=== PATIENT | female | born 1965 | race Caucasian/White ===

== ENCOUNTER → 2017-04-17 14:08 | Outpatient (REF) | payer BC, SELFPAY ==
[2017-04-17 16:59] LABS: Amphetamine/Metha Screen,Urine Negative ng/mL (<1000); Barbiturates Screen,Urine Positive ng/mL (<200); Benzodiazepines Screen,Urine Negative ng/mL (200); Cannabinoid Screen,Urine Negative ng/mL (<50); Cocaine Screen,Urine Negative ng/g (<300); Methadone Screen,Urine Negative ng/mL (<300); Opiate Screen,Urine Positive ng/mL (<300); Phencyclidine Screen,Urine Negative ng/mL (<25)
== END ==
LOC: LAB 14:08
PROVIDERS: Visit Provider Emergency Medicine
DX: Z79.899 Other long term (current) drug therapy (principal)
CPT/HCPCS: 80305

== ENCOUNTER → 2017-05-17 09:31 | Outpatient (REF) | payer BC, SELFPAY ==
[2017-05-17 14:28] LABS: Amphetamine/Metha Screen,Urine Negative ng/mL (<1000); Barbiturates Screen,Urine Negative ng/mL (<200); Benzodiazepines Screen,Urine Positive ng/mL (200); Cannabinoid Screen,Urine Negative ng/mL (<50); Cocaine Screen,Urine Negative ng/g (<300); Methadone Screen,Urine Negative ng/mL (<300); Opiate Screen,Urine Positive ng/mL (<300); Phencyclidine Screen,Urine Negative ng/mL (<25)
== END ==
LOC: LAB 09:31
PROVIDERS: Visit Provider Emergency Medicine
DX: Z79.899 Other long term (current) drug therapy (principal)
CPT/HCPCS: 80305

== ENCOUNTER → 2017-06-14 09:18 | Outpatient (CLI) | payer BC, SELFPAY ==
[2017-06-14 14:35] LABS: Amphetamine/Metha Screen,Urine Negative ng/mL (<1000); Barbiturates Screen,Urine Negative ng/mL (<200); Benzodiazepines Screen,Urine Positive ng/mL (200); Cannabinoid Screen,Urine Negative ng/mL (<50); Cocaine Screen,Urine Negative ng/g (<300); Methadone Screen,Urine Negative ng/mL (<300); Opiate Screen,Urine Positive ng/mL (<300); Phencyclidine Screen,Urine Negative ng/mL (<25)
== END ==
PROVIDERS: Visit Provider Emergency Medicine
DX: Z79.899 Other long term (current) drug therapy (principal)
CPT/HCPCS: 80305

== ENCOUNTER → 2017-07-12 08:57 | Outpatient (CLI) | payer BC, SELFPAY ==
[2017-07-12 18:24] LABS: Amphetamine/Metha Screen,Urine Negative ng/mL (<1000); Barbiturates Screen,Urine Negative ng/mL (<200); Benzodiazepines Screen,Urine Negative ng/mL (200); Cannabinoid Screen,Urine Negative ng/mL (<50); Cocaine Screen,Urine Negative ng/g (<300); Methadone Screen,Urine Negative ng/mL (<300); Opiate Screen,Urine Positive ng/mL (<300); Phencyclidine Screen,Urine Negative ng/mL (<25)
== END ==
PROVIDERS: Visit Provider Emergency Medicine
DX: Z79.899 Other long term (current) drug therapy (principal)
CPT/HCPCS: 80305

== ENCOUNTER → 2017-08-09 09:07 | Outpatient (CLI) | payer BC, SELFPAY ==
[2017-08-09 13:58] LABS: Amphetamine/Metha Screen,Urine Negative ng/mL (<1000); Barbiturates Screen,Urine Negative ng/mL (<200); Benzodiazepines Screen,Urine Positive ng/mL (200); Cannabinoid Screen,Urine Negative ng/mL (<50); Cocaine Screen,Urine Negative ng/g (<300); Methadone Screen,Urine Negative ng/mL (<300); Opiate Screen,Urine Positive ng/mL (<300); Phencyclidine Screen,Urine Negative ng/mL (<25)
== END ==
PROVIDERS: Visit Provider Emergency Medicine
DX: Z79.899 Other long term (current) drug therapy (principal)
CPT/HCPCS: 80305

== ENCOUNTER → 2017-09-06 08:57 | Outpatient (CLI) | payer BC, SELFPAY ==
[2017-09-06 13:12] LABS: Adenovirus F 40/41, stool Not Detected (NotDetected); Astrovirus Not Detected (NotDetected); Campylobacter Not Detected (NotDetected); Cryptosporidium Not Detected (NotDetected); Cyclospora Cayetanesis Not Detected (NotDetected); Entamoeba histolytica Not Detected (NotDetected); Enteroaggregative E coli Not Detected (NotDetected); Enteropathogenic E coli Not Detected (NotDetected); Enterotoxigenic E coli Not Detected (NotDetected); Giardia lamblia Not Detected (NotDetected); Norovirus Not Detected (NotDetected); Plesimonas Shigalloides, PCR Not Detected (NotDetected); Rotavirus A Not Detected (NotDetected); Salmonella, PCR Not Detected (NotDetected); Sapovirus Not Detected (NotDetected); Shiga-like toxin E coli Not Detected (NotDetected); Shigella Enterovasive E coli Not Detected (NotDetected); Vibrio Cholerae Not Detected (NotDetected); Vibrio, PCR Not Detected (NotDetected); Yersinia Entercolitica, PCR Not Detected (NotDetected)
[2017-09-06 13:50] LABS: Chol/HDL Ratio 4.5 (1-3.5); Cholesterol 197 mg/dL (140-200); HDL Cholesterol 44 mg/dL (29-89); LDL Cholesterol 126 mg/dL (0-130); Triglycerides 134 mg/dL (30-200); VLDL Cholesterol 27 mg/dL (0-40)
[2017-09-06 13:59] LABS: Alanine Aminotransferase 34 U/L (12-78); Albumin Level 4.1 gm/dL (3.4-5.0); Albumin/Globulin Ratio 1.4 (1.1-1.8); Alkaline Phosphatase 102 U/L (46-116); Anion Gap 12.8 mEq/L (5-15); Aspartate Amino Transferase 25 U/L (15-37); Bilirubin,Total 0.4 mg/dL (0.2-1.0); Blood Urea Nitrogen 13 mg/dL (7-18); C-Reactive Protein 0.8 mg/L (0.0-0.9); Calcium 9.2 mg/dL (8.5-10.1); Carbon Dioxide 29 mmol/L (21.0-32.0); Chloride 103 mmol/L (98-107); Creatinine,Serum 0.92 mg/dL (0.55-1.02); Estimated Glomerular Filt Rate 64 ml/min (>60); GFR (African American) 77 ML/MIN (>60); Globulin 2.9 gm/dl (1.3-3.2); Glucose 109 mg/dL (74-106); Potassium 3.8 mmoL/L (3.5-5.1); Sodium 141 mmol/L (136-145); Thyroid Stimulating Hormone 2.74 uIU/ml (0.358-3.740)
[2017-09-06 14:18] LABS: Basophils # 0.1 K/mm3 (0-0.2); Basophils % 1.3 % (0.1-2.0); Eosinophils # 0.4 K/mm3 (0.0-0.4); Eosinophils % 7.2 % (0.1-12.0); Hematocrit 49.4 % (37.0-47.0); Hemoglobin 15.3 g/dL (12.2-16.2); Lymphocytes # 1.8 K/mm3 (0.7-4.5); Lymphocytes % 31.4 K/mm3 (10-50); Mean Corpuscular Hemoglobin 30.4 pg (27.0-31.2); Mean Corpuscular Volume 98.1 fl (81-99); Mean Platelet Volume 9.7 fl (7.4-10.4); Monocytes # 0.5 K/mm3 (0.1-1.0); Monocytes % 8.6 % (1.7-9.3); Neutrophils # 2.9 K/mm3 (1.8-7.8); Neutrophils % 51.6 % (37.0-80.0); Platelet Count 172 K/mm3 (142-424); Red Blood Count 5.03 M/mm3 (4.20-5.40); Red Cell Distribution Width 12.8 % (11.5-17.5); White Blood Count 5.7 K/mm3 (4.8-10.8)
[2017-09-06 15:32] LABS: Erythrocyte Sedimentation Rate 12 mm/hr (0-30)
[2017-09-06 19:44] LABS: Amphetamine/Metha Screen,Urine Negative ng/mL (<1000); Barbiturates Screen,Urine Negative ng/mL (<200); Benzodiazepines Screen,Urine Negative ng/mL (200); Cannabinoid Screen,Urine Negative ng/mL (<50); Cocaine Screen,Urine Negative ng/g (<300); Methadone Screen,Urine Negative ng/mL (<300); Opiate Screen,Urine Positive ng/mL (<300); Phencyclidine Screen,Urine Negative ng/mL (<25)
[2017-09-06 20:22] LABS: Clostridium Difficile A/B, PCR Detected (NotDetected)
== END ==
PROVIDERS: Visit Provider Emergency Medicine
DX: R19.7 Diarrhea, unspecified (principal); Z79.899 Other long term (current) drug therapy
CPT/HCPCS: 80053; 80061; 80305; 84439; 84443; 85025; 85651; 86140; 87507

== ENCOUNTER → 2017-10-07 09:07 | Outpatient (REF) | payer BC, SELFPAY ==
[2017-10-07 14:24] LABS: Amphetamine/Metha Screen,Urine Positive ng/mL (<1000); Barbiturates Screen,Urine Negative ng/mL (<200); Benzodiazepines Screen,Urine Negative ng/mL (200); Cannabinoid Screen,Urine Negative ng/mL (<50); Cocaine Screen,Urine Negative ng/g (<300); Methadone Screen,Urine Negative ng/mL (<300); Opiate Screen,Urine Positive ng/mL (<300); Phencyclidine Screen,Urine Negative ng/mL (<25)
== END ==
LOC: LAB 09:07
PROVIDERS: Visit Provider Emergency Medicine
DX: Z79.899 Other long term (current) drug therapy (principal)
CPT/HCPCS: 80305

== ENCOUNTER → 2017-11-05 09:35 | Outpatient (REF) | payer BC, SELFPAY ==
[2017-11-05 15:44] LABS: Amphetamine/Metha Screen,Urine Negative ng/mL (<1000); Barbiturates Screen,Urine Negative ng/mL (<200); Benzodiazepines Screen,Urine Negative ng/mL (<200); Cannabinoid Screen,Urine Negative ng/mL (<50); Cocaine Screen,Urine Negative ng/mL (<300); Methadone Screen,Urine Negative ng/mL (<300); Opiate Screen,Urine Positive ng/mL (<300); Phencyclidine Screen,Urine Negative ng/mL (<25)
== END ==
LOC: LAB 09:35
PROVIDERS: Visit Provider Emergency Medicine
DX: Z79.899 Other long term (current) drug therapy (principal)
CPT/HCPCS: 80305

== ENCOUNTER → 2017-12-04 09:03 | Outpatient (REF) | payer BC, SELFPAY ==
[2017-12-04 14:02] LABS: Amphetamine/Metha Screen,Urine Negative ng/mL (<1000); Barbiturates Screen,Urine Negative ng/mL (<200); Benzodiazepines Screen,Urine Negative ng/mL (<200); Cannabinoid Screen,Urine Negative ng/mL (<50); Cocaine Screen,Urine Negative ng/mL (<300); Methadone Screen,Urine Negative ng/mL (<300); Opiate Screen,Urine Positive ng/mL (<300); Phencyclidine Screen,Urine Negative ng/mL (<25)
== END ==
LOC: LAB 09:03
PROVIDERS: Visit Provider Emergency Medicine
DX: Z79.899 Other long term (current) drug therapy (principal)
CPT/HCPCS: 80305

== ENCOUNTER → 2018-01-29 08:54 | Outpatient (REF) | payer BC, SELFPAY ==
[2018-01-29 15:26] LABS: Amphetamine/Metha Screen,Urine Negative ng/mL (<1000); Barbiturates Screen,Urine Negative ng/mL (<200); Benzodiazepines Screen,Urine Positive ng/mL (<200); Cannabinoid Screen,Urine Negative ng/mL (<50); Cocaine Screen,Urine Negative ng/mL (<300); Methadone Screen,Urine Negative ng/mL (<300); Opiate Screen,Urine Positive ng/mL (<300); Phencyclidine Screen,Urine Negative ng/mL (<25)
== END ==
LOC: LAB 08:54
PROVIDERS: PCP Emergency Medicine; Visit Provider Emergency Medicine
DX: Z79.899 Other long term (current) drug therapy (principal)
CPT/HCPCS: 80305

== ENCOUNTER → 2018-02-28 14:08 | Outpatient (CLI) | payer BC, SELFPAY ==
[2018-02-28 14:43] LABS: Amphetamine/Metha Screen,Urine Negative ng/mL (<1000); Barbiturates Screen,Urine Negative ng/mL (<200); Benzodiazepines Screen,Urine Positive ng/mL (<200); Cannabinoid Screen,Urine Negative ng/mL (<50); Cocaine Screen,Urine Negative ng/mL (<300); Methadone Screen,Urine Negative ng/mL (<300); Opiate Screen,Urine Positive ng/mL (<300); Phencyclidine Screen,Urine Negative ng/mL (<25)
== END ==
PROVIDERS: Visit Provider Emergency Medicine
DX: Z79.891 Long term (current) use of opiate analgesic (principal)
CPT/HCPCS: 80305

== ENCOUNTER → 2018-03-28 14:28 | Outpatient (CLI) | payer BC, SELFPAY ==
[2018-03-28 16:43] LABS: Amphetamine/Metha Screen,Urine Negative ng/mL (<1000); Barbiturates Screen,Urine Negative ng/mL (<200); Benzodiazepines Screen,Urine Negative ng/mL (<200); Cannabinoid Screen,Urine Negative ng/mL (<50); Cocaine Screen,Urine Negative ng/mL (<300); Methadone Screen,Urine Negative ng/mL (<300); Opiate Screen,Urine Positive ng/mL (<300); Phencyclidine Screen,Urine Negative ng/mL (<25)
== END ==
PROVIDERS: Visit Provider Emergency Medicine
DX: Z79.891 Long term (current) use of opiate analgesic (principal)
CPT/HCPCS: 80305

== ENCOUNTER → 2018-04-22 14:06 | Outpatient (CLI) | payer BC, SELFPAY ==
[2018-04-22 14:40] LABS: Amphetamine/Metha Screen,Urine Negative ng/mL (<1000); Barbiturates Screen,Urine Negative ng/mL (<200); Benzodiazepines Screen,Urine Negative ng/mL (<200); Cannabinoid Screen,Urine Negative ng/mL (<50); Cocaine Screen,Urine Negative ng/mL (<300); Methadone Screen,Urine Negative ng/mL (<300); Opiate Screen,Urine Positive ng/mL (<300); Phencyclidine Screen,Urine Negative ng/mL (<25)
[2018-04-28 10:09] LABS: Alprazolam Negative (Cutoff=100); Benzodiazepines Negative ng/mL (Cutoff=100); Clonazepam Negative (Cutoff=100); Flurazepam Negative (Cutoff=100); Lorazepam Negative (Cutoff=100); Midazolam Negative (Cutoff=100); Temazepam Negative (Cutoff=100); Triazolam Negative (Cutoff=100)
== END ==
PROVIDERS: Visit Provider Emergency Medicine
DX: Z79.891 Long term (current) use of opiate analgesic (principal)
CPT/HCPCS: 80305; 80346

== ENCOUNTER → 2018-06-18 13:52 | Outpatient (CLI) | payer BC, SELFPAY ==
[2018-06-18 15:02] LABS: Amphetamine/Metha Screen,Urine Negative ng/mL (<1000); Barbiturates Screen,Urine Positive ng/mL (<200); Benzodiazepines Screen,Urine Positive ng/mL (<200); Cannabinoid Screen,Urine Positive ng/mL (<50); Cocaine Screen,Urine Negative ng/mL (<300); Methadone Screen,Urine Negative ng/mL (<300); Opiate Screen,Urine Positive ng/mL (<300); Phencyclidine Screen,Urine Negative ng/mL (<25)
== END ==
PROVIDERS: Visit Provider Emergency Medicine
DX: Z79.899 Other long term (current) drug therapy (principal)
CPT/HCPCS: 80305

== ENCOUNTER → 2018-07-08 14:15 | Outpatient (CLI) | payer BC, SELFPAY ==
[2018-07-08 15:16] LABS: Amphetamine/Metha Screen,Urine Negative ng/mL (<1000); Barbiturates Screen,Urine Positive ng/mL (<200); Benzodiazepines Screen,Urine Positive ng/mL (<200); Cannabinoid Screen,Urine Negative ng/mL (<50); Cocaine Screen,Urine Negative ng/mL (<300); Methadone Screen,Urine Negative ng/mL (<300); Opiate Screen,Urine Positive ng/mL (<300); Phencyclidine Screen,Urine Negative ng/mL (<25)
[2018-07-15 06:59] LABS: Barbiturates Positive (.)
== END ==
LOC: LAB 14:15 → LAB.DROPOF 14:18
PROVIDERS: Visit Provider Emergency Medicine
DX: Z79.899 Other long term (current) drug therapy (principal); G89.29 Other chronic pain
CPT/HCPCS: 80305; 80345

== ENCOUNTER → 2018-08-15 09:33 | Outpatient (CLI) | payer BC, SELFPAY ==
--- NOTE | 2018-08-15 09:34 | FL_ITS ---
FL upper GI w air HISTORY: Probable swallowing, heartburn is ITS.REASON: dysphagia ORDERING PHYSICIAN: Jostin Landeros MD PATIENT AGE: 53 years Comparison: None FINDINGS: There are some mild tertiary contractions of the distal esophagus. There is a small sliding hiatal hernia. The esophagus at the GE junction never fully distended no annular constricting lesion is evident. No mucosal abnormalities.. The stomach and duodenum have an unremarkable appearance. There is no evidence of hiatal hernia. No ulcer or mass evident. No mucosal abnormalities apparent. There is normal peristalsis. The duodenal C-is nondisplaced. FLUOROSCOPY TIME : 1 minute and 54 seconds. IMPRESSION: 1. Small sliding hiatal hernia. There is incomplete distention of the distal esophagus. Consider upper endoscopy for further evaluation. 2. Otherwise negative upper GI
== END ==
PROVIDERS: PCP Emergency Medicine; Visit Provider Surgery
DX: R13.10 Dysphagia, unspecified (principal)
CPT/HCPCS: 74247

== ENCOUNTER → 2018-08-16 11:23 | Outpatient (CLI) | payer BC, SELFPAY ==
[2018-08-16 14:52] LABS: Amphetamine/Metha Screen,Urine Negative ng/mL (<1000); Barbiturates Screen,Urine Negative ng/mL (<200); Benzodiazepines Screen,Urine Negative ng/mL (<200); Cannabinoid Screen,Urine Negative ng/mL (<50); Cocaine Screen,Urine Negative ng/mL (<300); Methadone Screen,Urine Negative ng/mL (<300); Opiate Screen,Urine Positive ng/mL (<300); Phencyclidine Screen,Urine Negative ng/mL (<25)
[2018-08-23 02:13] LABS: Alprazolam Negative (Cutoff=100); Benzodiazepines Negative ng/mL (Cutoff=100); Clonazepam Negative (Cutoff=100); Flurazepam Negative (Cutoff=100); Lorazepam Negative (Cutoff=100); Midazolam Negative (Cutoff=100); Temazepam Negative (Cutoff=100); Triazolam Negative (Cutoff=100)
== END ==
PROVIDERS: Visit Provider Emergency Medicine
DX: Z79.899 Other long term (current) drug therapy (principal); M54.5 Low back pain
CPT/HCPCS: 80305; 80346

== ENCOUNTER → 2018-09-11 14:43 | Outpatient (CLI) | payer BC, SELFPAY ==
--- NOTE | 2018-09-11 14:45 | MR_ITS ---
MR lumbar spine wo con, MR 3-d myelogram/MRCP HISTORY: Low back pain X years. ITS.REASON: back pain ORDERING PHYSICIAN: Cristian Olvera MD PATIENT AGE: 53 years Comparison: CT 07/08/18. MRI 05/30/16 TECHNIQUE: Standard multiplanar multiecho sequences are performed without contrast. 3-D MIP and myelographic images are also rendered and reviewed FINDINGS: There is normal alignment. The spinal cord ends at the L1 level. L1-L2, L2-L3, and L3-L4 have an unremarkable appearance. There is mild facet and ligamentum flavum hypertrophy at L4-L5 with mild left-sided foraminal narrowing. L5-S1 shows degenerative disc disease with type II endplate changes and minimal bulging disc with facet and ligamentum flavum hypertrophy. There is a small broad-based right foraminal disc protrusion with moderate right foraminal narrowing. There is a small broad-based left lateral disc protrusion also at this level along with facet hypertrophic change resulting in moderate to severe left-sided foraminal narrowing. These findings are overall not significant changed. No extruded herniated disc or canal stenosis. IMPRESSION: 1. L5-S1 shows degenerative disc disease with type II endplate changes and minimal bulging disc with facet and ligamentum flavum hypertrophy. There is a small broad-based right foraminal disc protrusion with moderate right foraminal narrowing. There is a small broad-based left lateral disc protrusion also at this level along with facet hypertrophic change resulting in moderate to severe left-sided foraminal narrowing. These findings are overall not significant changed 2. No disc herniation or canal stenosis
== END ==
PROVIDERS: PCP Emergency Medicine; Visit Provider Emergency Medicine
DX: M51.16 Intervertebral disc disorders with radiculopathy, lumbar region (principal); M54.5 Low back pain
CPT/HCPCS: 72148; 76376

== ENCOUNTER 2018-09-16 08:36 | Day surgery (SDC) | payer BC, SELFPAY ==
[2018-09-15 16:17] VITALS: BMI 22.1
[2018-09-16 09:22] VITALS: BP 105/65; PULSE 81; RESP 18; TEMP 36.5; O2SAT 95
--- NOTE | 2018-09-16 10:07 | HMH.ANESCL ---
[facility] Anesthesia Checklist - Patient Identification Patient Identification: Arm Band, Verbal (Name & ) - Structural Data Admitted From: Home Planned Operative Procedure/s: EGD/Colonoscopy Consent for Planned Operative Procedure(s) Verified: Yes Verified Documents: Surgical Consent, History and Physical - NPO Status Verified Time NPO: 00:00 - Additional verifications Patient : No Anesthesia Reactions: No - Airway Assessment C-Spine Mobility Assessed: Yes TMJ Mobility Assessed: Yes Dentition: Good Dentition ([place]) - Neurological Assessment Level of Consciousness: Awake, Alert, Appropriate, Follows Commands Hx Seizures: No Numbness or tingling in extremities: No - Anesthesia Plan Anesthesia Risk discussed: Yes Anesthesia Plan: Verified ASA Class: III Anesthesia Type: MAC [facility] History I have reviewed the patient's past medical history: Yes Medical History: Reports:: Anxiety, Chronic Obstructive Pulmonary Disease (COPD), Depression, Gastroesophageal Reflux Disease(GERD), Hypertension Denies:: Cancer, Diabetes Mellitus Type 1, Diabetes Mellitus Type 2, Internal Pacemaker, Lung Disease, MRSA, Seizures *Have you ever received a pneumonia vaccine?: No *Have you received a flu vaccine this season?: Yes Other Surgeries: Yes: Cardiac Catheterization, Colonoscopy, EGD, Hysterectomy-Total. No: Pacemaker Amputation: No Fractures: No - *Social History Smoking Status: Current every day smoker Tobacco Type: cigarettes # Packs/Day (cigarettes): 1 #Yrs smoked (if former smoker): 20 Alcohol Intake: never Alcohol Intake Frequency:: holidays/special occasions only Substance Use Type: denies use *Occupational Status:: unemployed Housing: house Household Members: family *Travel in the last 8 weeks: None (NA) - Psychiatric History Pschychiatric History:: Reports:: Anxiety, Depression Family Hx:: Hypertension, Cancer, Heart Attack
[2018-09-16 10:13] VITALS: O2SAT 95
[2018-09-16 10:57] VITALS: BP 88/53; PULSE 74; RESP 16; TEMP 36.6; O2SAT 97
--- NOTE | 2018-09-16 10:59 | HMH.SCOPE ---
- Procedure: Date: 09/16/18 Procedure Performed:: 1. Esophagogastroduodenoscopy with biopsies 2. Total colonoscopy with random colon biopsies Indications:: Patient is a 52-year-old white female originallyreferred by Dr. Olvera for colonoscopy. I had seen her in the office two months ago. She states that several months ago she had significant diarrhea. This was ongoing for several weeks. She then developed some constipation after she had some lower abdominal discomfort. She still does have some degree of constipation. She apparently did have a colonoscopy about 4 or 5 years ago in [place]. She states that she was told this was unremarkable. She has not had any bleeding that she is aware of. Review of of the medical record gives a history of C. difficile diarrhea . Patient also asked about stretching her esophagus. Apparently she has some dysphagia type symptoms. She states that about 3 years ago the same endoscopist performed upper endoscopy with esophageal dilatation. I have obtained the records from prior upper endoscopy and this was performed on 08/08/[address] Vinnie Melendez. She was found to have gastroesophageal junction 35 cm from the incisors, small hiatal hernia, and minimal Schatzki's ring which was dilated 18 to 20 mm. Her upper GI series revealed small hiatal hernia and absent relaxation of the distal esophagus. Upper endoscopy was recommended. She describes some bowel trouble and irregularity. Of note, patient's medications include, but are not limited to, bupropion, diazepam, gabapentin 600 mg 4 times daily, hydrocodone 7.5 mg, oxycodone 10 mg 3 times a day. Performing Provider:: Jostin Landeros MD Referring Provider:: May Sedation:: Propofol Procedure:: Patient was taken to endoscopy procedure room. She was positioned in a lateral decubitus position. Adequate intravenous sedation was achieved with anesthesia titration of propofol. Olympus endoscope was inserted via the oropharynx and advanced through the esophagus. Majority of the esophagus appeared unremarkable. At the gastroesophageal junction there was some heaped mucosa which could represent Yan's. Biopsies ultimately were obtained. There was no evidence of any significant stricture but there was some minor spasm. Stomach was cannulated and insufflated. Retroflexion revealed a very small hiatal hernia. Within the gastric lumen there was some minor gastritis characterized by induration and erythema in the antrum and at the pylorus. Biopsies were obtained. CLOtest was obtained for H. pylori. Pylorus was traversed. There is some minor nonerosive duodenitis and biopsies were obtained. Endoscope was withdrawn into the distal esophagus and multiple biopsies were obtained at the gastroesophageal junction to evaluate for possible Yan's. A couple biopsies were obtained of the distal esophagus to evaluate for microscopic esophagitis. Endoscope was withdrawn. Patient was then repositioned for colonoscopy. Variable stiffness Olympus colonoscope was inserted via the anus. With some minor difficulty due to angulation of the rectosigmoid and floppiness of the sigmoid colon it was ultimately advanced to the cecum. The ileocecal valve and appendiceal orifice were clearly identified. Colonic preparation was fair as there was particulate liquid stool but this was suctioned free. Colonoscope was withdrawn to the colon with careful surveillance. There was no evidence of any polyps masses or diverticuli. Multiple cold biopsies were obtained to evaluate for microscopic colitis. Retroflexion within the rectum revealed nonpathologic internal hemorrhoids. Colonoscope was withdrawn. Findings:: Inflammation at gastroesophageal junction Small hiatal hernia Distal gastritis Mild duodenitis Essentially unremarkable colonoscopy Recommendations:: Follow-up on histopathology. Bowel irregularity likely functional and medical. However, pathology pending. Up
[2018-09-16 11:07] VITALS: BP 88/44; PULSE 62; RESP 16; O2SAT 97
[2018-09-16 11:27] VITALS: BP 99/53; PULSE 61; RESP 16; O2SAT 100
[2018-09-16 11:38] VITALS: BP 101/57; PULSE 60; RESP 16; O2SAT 98
== END 2018-09-16 11:53 | disposition home or self-care (01) ==
LOC: OUTP 08:37
PROVIDERS: PCP Emergency Medicine; Visit Provider Surgery
PROC: 0DJ08ZZ Inspection of Upper Intestinal Tract, Via Natural or Artificial Opening Endoscopic (ICD-10-PCS; CPT 43235; principal; 2018-09-16 10:00)
DX: K20.9 Esophagitis, unspecified (principal); K44.9 Diaphragmatic hernia without obstruction or gangrene; K29.70 Gastritis, unspecified, without bleeding; K29.80 Duodenitis without bleeding; K56.2 Volvulus
CPT/HCPCS: 43239; 45378; 87339

== ENCOUNTER → 2018-10-14 13:31 | Outpatient (CLI) | payer BC, SELFPAY ==
[2018-10-14 14:39] LABS: Alanine Aminotransferase 23 U/L (12-78); Albumin Level 3.5 gm/dL (3.4-5.0); Albumin/Globulin Ratio 1.5 (1.1-1.8); Alkaline Phosphatase 79 U/L (46-116); Anion Gap 13.8 mEq/L (5-15); Aspartate Amino Transferase 16 U/L (15-37); Bilirubin,Total 0.3 mg/dL (0.2-1.0); Blood Urea Nitrogen 13 mg/dL (7-18); Calcium 8.6 mg/dL (8.5-10.1); Carbon Dioxide 26 mmol/L (21.0-32.0); Chloride 108 mmol/L (98-107); Chol/HDL Ratio 4.1 (1-3.5); Cholesterol 184 mg/dL (140-200); Creatinine,Serum 0.91 mg/dL (0.55-1.02); Estimated Glomerular Filt Rate 64 ml/min (>60); GFR (African American) 78 ML/MIN (>60); Globulin 2.4 gm/dl (1.3-3.2); Glucose 102 mg/dL (74-106); HDL Cholesterol 45 mg/dL (29-89); LDL Cholesterol 121 mg/dL (0-130); Potassium 3.8 mmoL/L (3.5-5.1); Sodium 144 mmol/L (136-145); T4 (Thyroxine) 7.5 ug/dl (4.7-13.3); Thyroid Stimulating Hormone 2.01 uIU/ml (0.358-3.740); Total Protein,Serum 5.9 gm/dL (6.4-8.2); Triglycerides 88 mg/dL (30-200); VLDL Cholesterol 18 mg/dL (0-40)
[2018-10-14 14:43] LABS: Basophils # 0.1 K/mm3 (0-0.2); Basophils % 0.8 % (0.1-2.0); Eosinophils # 0.3 K/mm3 (0.0-0.4); Eosinophils % 5.4 % (0.1-12.0); Hematocrit 42.5 % (37.0-47.0); Hemoglobin 13.2 g/dL (12.2-16.2); Lymphocytes # 2.6 K/mm3 (0.7-4.5); Lymphocytes % 41.7 % (10-50); Mean Corpuscular HGB Conc 31.2 g/dL (31.8-35.4); Mean Corpuscular Hemoglobin 30.8 pg (27.0-31.2); Mean Corpuscular Volume 98.6 fl (81-99); Mean Platelet Volume 9.3 fl (7.4-10.4); Monocytes # 0.4 K/mm3 (0.1-1.0); Monocytes % 7.2 % (1.7-9.3); Neutrophils # 2.8 K/mm3 (1.8-7.8); Neutrophils % 44.9 % (37.0-80.0); Platelet Count 216 K/mm3 (142-424); White Blood Count 6.1 K/mm3 (4.8-10.8)
[2018-10-14 14:50] LABS: Amphetamine/Metha Screen,Urine Negative ng/mL (<1000); Barbiturates Screen,Urine Negative ng/mL (<200); Benzodiazepines Screen,Urine Positive ng/mL (<200); Cannabinoid Screen,Urine Negative ng/mL (<50); Cocaine Screen,Urine Negative ng/mL (<300); Methadone Screen,Urine Negative ng/mL (<300); Opiate Screen,Urine Positive ng/mL (<300); Phencyclidine Screen,Urine Negative ng/mL (<25)
[2018-10-16 06:24] LABS: Vitamin B12 >2000 pg/mL (232-1245)
[2018-10-17 07:11] LABS: Folate 8.5 ng/mL (>3.0); Vitamin D 25 Hydroxy 31.2 ng/mL (30.0-100.0)
== END ==
PROVIDERS: Visit Provider Emergency Medicine
DX: R53.83 Other fatigue (principal)
CPT/HCPCS: 80053; 80061; 80305; 82607; 82652; 82746; 84436; 84443; 85025

== ENCOUNTER → 2018-12-16 13:45 | Outpatient (CLI) | payer BC, SELFPAY ==
[2018-12-16 16:27] LABS: Amphetamine/Metha Screen,Urine Positive ng/mL (<1000); Barbiturates Screen,Urine Negative ng/mL (<200); Benzodiazepines Screen,Urine Negative ng/mL (<200); Cannabinoid Screen,Urine Negative ng/mL (<50); Cocaine Screen,Urine Negative ng/mL (<300); Methadone Screen,Urine Negative ng/mL (<300); Opiate Screen,Urine Positive ng/mL (<300); Phencyclidine Screen,Urine Negative ng/mL (<25)
[2018-12-21 10:15] LABS: Codeine Negative (Cutoff=100); Hydrocodone Positive (.); Hydromorphone Positive (.); Morphine Negative (Cutoff=100)
[2018-12-21 11:08] LABS: Amphetamines Negative (Cutoff=500)
[2018-12-22 09:53] LABS: Hydrocodone Confirm >3000 ng/mL (Cutoff=100); Hydromorphone Confirm 732 ng/mL (Cutoff=100); Opiates Positive (.)
== END ==
PROVIDERS: Visit Provider Emergency Medicine
DX: Z79.899 Other long term (current) drug therapy (principal)
CPT/HCPCS: 80305; 80324; 80361; G0480

== ENCOUNTER → 2019-02-13 13:34 | Outpatient (CLI) | payer BC, SELFPAY ==
[2019-02-13 15:20] LABS: Amphetamine/Metha Screen,Urine Positive ng/mL (<1000); Barbiturates Screen,Urine Negative ng/mL (<200); Benzodiazepines Screen,Urine Positive ng/mL (<200); Cannabinoid Screen,Urine Negative ng/mL (<50); Cocaine Screen,Urine Negative ng/mL (<300); Methadone Screen,Urine Negative ng/mL (<300); Opiate Screen,Urine Positive ng/mL (<300); Phencyclidine Screen,Urine Negative ng/mL (<25)
[2019-02-21 07:58] LABS: Amphetamine Positive (.); Amphetamines Positive (.); Methamphetamine Negative (Cutoff=500)
[2019-02-21 18:14] LABS: Amphetamine (GC/MS) 3796 ng/mL (Cutoff=500)
== END ==
PROVIDERS: Visit Provider Emergency Medicine
DX: Z79.899 Other long term (current) drug therapy (principal)
CPT/HCPCS: 80305; 80324

== ENCOUNTER → 2019-04-10 13:52 | Outpatient (CLI) | payer BC, SELFPAY ==
[2019-04-10 15:51] LABS: Amphetamine/Metha Screen,Urine Positive ng/mL (<1000); Barbiturates Screen,Urine Negative ng/mL (<200); Benzodiazepines Screen,Urine Negative ng/mL (<200); Cannabinoid Screen,Urine Negative ng/mL (<50); Cocaine Screen,Urine Negative ng/mL (<300); Methadone Screen,Urine Negative ng/mL (<300); Opiate Screen,Urine Positive ng/mL (<300); Phencyclidine Screen,Urine Negative ng/mL (<25)
[2019-04-17 09:45] LABS: Amphetamine POSITIVE; Amphetamine (GC/MS) 3796; Amphetamines POSITIVE; Methamphetamine NEGATIVE
[2019-04-18 10:11] LABS: Alprazolam Negative (Cutoff=100); Benzodiazepines Negative ng/mL (Cutoff=100); Clonazepam Negative (Cutoff=100); Flurazepam Negative (Cutoff=100); Lorazepam Negative (Cutoff=100); Midazolam Negative (Cutoff=100); Temazepam Negative (Cutoff=100); Triazolam Negative (Cutoff=100)
== END ==
PROVIDERS: Visit Provider Emergency Medicine
DX: Z79.899 Other long term (current) drug therapy (principal)
CPT/HCPCS: 80305; 80324; 80346

== ENCOUNTER → 2019-06-09 13:43 | Outpatient (CLI) | payer BC, SELFPAY ==
[2019-06-09 15:06] LABS: Amphetamine/Metha Screen,Urine Positive ng/ml (<1000); Barbiturates Screen,Urine Negative ng/ml (<200)
[2019-06-09 15:07] LABS: Benzodiazepines Screen,Urine Positive ng/ml (<200)
[2019-06-09 15:08] LABS: Cannabinoid Screen,Urine Negative ng/ml (<50); Cocaine Screen,Urine Negative ng/ml (<300)
[2019-06-09 15:09] LABS: Methadone Screen,Urine Negative ng/ml (<300)
[2019-06-09 15:10] LABS: Opiate Screen,Urine Positive ng/ml (<300); Phencyclidine Screen,Urine Negative ng/ml (<25)
== END ==
PROVIDERS: Visit Provider Emergency Medicine
DX: Z79.899 Other long term (current) drug therapy (principal)
CPT/HCPCS: 80305

== ENCOUNTER → 2019-07-31 10:34 | Outpatient (CLI) | payer BC, SELFPAY ==
[2019-08-01 09:15] LABS: Estradiol <5.0 pg/mL (.); FSH 47.7 mIU/mL (.)
[2019-08-03 12:47] LABS: Testosterone, Total, LC/MS 8.6 ng/dL (.); Testosterone,Free 0.6 pg/mL (0.0-4.2)
== END ==
PROVIDERS: Visit Provider Obstetrics & Gynecology
DX: N95.1 Menopausal and female climacteric states (principal)
CPT/HCPCS: 36415; 82670; 83001; 84402; 84403

== ENCOUNTER → 2019-08-24 09:24 | Outpatient (POV) | payer BC, SELFPAY ==
[2019-08-24 09:32] VITALS: BMI 26.4
--- NOTE | 2019-08-24 10:00 | HMH.PMCON ---
Assessment and Plan (1) Lumbar facet arthropathy Current visit: No Status: Chronic Category: Medical Code(s): M46.96 - Unspecified inflammatory spondylopathy, lumbar region (2) Spondylisthesis Current visit: No Status: Chronic Category: Medical Code(s): M43.10 - Spondylolisthesis, site unspecified (3) Lumbar disc disease with radiculopathy Current visit: No Status: Chronic Category: Medical Code(s): M51.16 - Intervertebral disc disorders with radiculopathy, lumbar region - Assessment and plan all Dx Assessment and Plan for all problems:: We will send the patient some information in regards to pain pump. We did discuss the need for psychological evaluation. We will set this up and reassess after this. She is been instructed to call the office if she has any issues prior to her next appointment. This encounter was performed as a telemedicine visit via secure 2 way video and audio to minimize risk and transmission of Covid-19. The patient and we understand the limitations of a telemedicine visit including inability to check reflexes, possibly missing subtle findings on physical exam. Alternative options were presented to the patient and the patient elected to proceed with the visit. We specifically discussed risk factors for Covid-19 including age, heart or lung disease, diabetes, immunosuppression and travel. We also discussed that NSAIDs may worsen Covid-19 infection symptoms and that they should not be used to treat Covid-19 symptoms. Patient was also informed that corticosteroids in any form oral or injectable will decrease immune response and may increase risk of Covid-[address] Linares has reviewed this patient's chart and this note and agrees with plan of care. Patient has been instructed to call the office if they have any issues prior to the next appointment. HPI - Data of Consult Consult date: 08/24/19 Requesting Physician: Tosha Maguire APRN Primary Care Provider: Referral Provider, MD - Consult Narrative Reason for consult: Consultation for intrathecal pain pump History of present illness: Ms. Vasquez is a 54 year old female is a pleasant 54-year-old white female who presents today for consultation in regards to her low back pain. Patient was seen back in 2014 and had multiple injections with no real relief. She rates her pain a 5 out of 10. She is tried and failed chiropractic therapy, physical therapy, massage therapy. She is currently on Lortab however she states that it is not beneficial for her pain. She would like a more long-term option in regards to pain control. She does have an MRI showing degeneration along with disc bulge. Most of her pain is axial in nature. She is now having numbness and tingling in the right leg however. Sleeping and mopping increased pain while leaning forward and her medications do decrease it somewhat. CC: Tosha Maguire APRN [facility] History I have reviewed the patient's past medical history: Yes Medical History: Reports:: Anxiety, Chronic Obstructive Pulmonary Disease (COPD), Depression, Gastroesophageal Reflux Disease(GERD), Hypertension Denies:: Cancer, Diabetes Mellitus Type 1, Diabetes Mellitus Type 2, Internal Pacemaker, Lung Disease, MRSA, Seizures *Have you ever received a pneumonia vaccine?: Yes *Have you received a flu vaccine this season?: Yes Other Surgeries: Yes: Cardiac Catheterization, Colonoscopy, EGD, Hysterectomy-Total. No: Pacemaker Amputation: No Fractures: No - *Social History Smoking Status: Never smoker Tobacco Type: cigarettes # Packs/Day (cigarettes): 5 #Yrs smoked (if former smoker): 20 Alcohol Intake: never Alcohol Intake Frequency:: holidays/special occasions only Substance Use Type: denies use *Occupational Status:: other Housing: house Household Members: family *Travel in the last 8 weeks: None - Psychiatric History Pschychiatric History:: Reports:: Anxiety, Depression Family Hx:: Unable to o
== END ==
PROVIDERS: Visit Provider Clinical Nurse Specialist Family Health
DX: M46.96 Unspecified inflammatory spondylopathy, lumbar region (principal); M43.10 Spondylolisthesis, site unspecified; M51.16 Intervertebral disc disorders with radiculopathy, lumbar region; Z88.8 Allergy status to other drugs, medicaments and biological substances
CPT/HCPCS: 99202

== ENCOUNTER 2019-10-08 20:19 | Emergency (ER) | payer BC, SELFPAY ==
[2019-10-08 20:27] VITALS: BP 161/95; PULSE 85; RESP 18; TEMP 36.5; O2SAT 97; BMI 27.4
--- NOTE | 2019-10-08 21:04 | HMH.EDGENADL ---
ED Disposition Clinical Impression: Lumbar radiculopathy Disposition: Home, Self-Care Condition on Discharge: Good Instructions: DI for Low Back Pain Additional Instructions: see pcp for follow up Referrals: Cristian Olvera MD [Primary Care Provider] - - Critical Care Critical Care Time: No Attestation: On 10/08/19, the high probability of a clinically significant, sudden or life threatening deterioration of the following system(s) required my full and direct attention, intervention and personal management. The time I documented below is in addition to time spent performing reported procedures but includes the following listed in this critical care notation. Medical Decision Making - Medical Records Medical records reviewed: Yes: I reviewed the patient's medical records. - Bhavik Inquiry Pt receiving controlled substance: No Vital Signs: 10/08/19 20:27 Temperature 97.7 F Temperature Source Oral Pulse Rate [Right Brachial] 85 Respiratory Rate 18 Blood Pressure [Right Arm] 161/95 H Blood Pressure Mean [Right Arm] 117 Blood Pressure Source [Right Arm] Automatic Cuff Blood Pressure Position [Right Arm] Sitting 02 Sat by Pulse Oximetry 97 Oxygen Delivery Method Room Air - Lab Data Lab results reviewed: Yes: I reviewed the patient's lab results. Orders (Tests/Meds): ED MEDICATIONS Discontinued Medications Generic Name Dose Route Start Last Admin Trade Name Freq PRN Reason Stop Dose Admin Hydromorphone HCl 1 mg 10/08/19 20:44 10/08/19 20:48 Dilaudid 2mg/Ml Syringe IV 10/08/19 20:45 1 mg ONCE ONE Administration Methylprednisolone Sodium Succinate 125 mg 10/08/19 20:44 10/08/19 20:48 Solu-Medrol 125mg/2ml Vial IV 10/08/19 20:45 125 mg ONCE ONE Administration Ondansetron HCl 4 mg 10/08/19 20:44 10/08/19 20:48 Zofran 4mg/2ml Vial IV 10/08/19 20:45 4 mg ONCE ONE Administration General Adult HPI - General Chief complaint: PAIN Stated complaint: Neck and back pain Time Seen by Provider: 10/08/19 20:35 Mode of Arrival: Ambulatory Source of Information: Patient, Medical Record Limitations: No Limitations Description of Symptoms (Recalled from ER Triage Doc. by RN): back pain radiating to neck x 4 days - History of Present Illness HPI narrative: this pt with acute exacerbation of her ongoing neck and back pain - no fever or rash and no trauma - she is planning pain pump - she has been compliant with meds and no cauda equina sx - Onset (ago): day(s) Location: neck, back Radiation: non-radiation Severity: moderate Associated symptoms: denies other symptoms Treatments prior to arrival: none - Related Data Home Medications Medication Instructions Recorded Confirmed albuterol sulfate 90 mcg/actuation 2 puff INHALATION Q4H PRN g 04/12/17 06/09/19 aerosol inhaler fluticasone furoate 200 1 inh INHALATION QDAY 04/12/17 06/09/19 mcg-vilanterol 25 mcg/dose inhalation powder Previous Rx's Medication Instructions Recorded fluticasone propionate 50 1 spray INTRANASAL DAILY #19.8 g 01/02/19 mcg/actuation nasal spray,suspension acyclovir 400 mg tablet 400 mg PO BID PRN #60 tab 02/06/19 amlodipine 2.5 mg tablet 2.5 mg PO DAILY #90 tab 02/13/19 diazepam 5 mg tablet 5 mg PO BID PRN #60 tab 04/10/19 bupropion HCl 150 mg tablet,12 hr See Rx Instructions .ROUTE 07/23/19 sustained-release .COMPLEX #60 tablet hydrochlorothiazide 12.5 mg tablet See Rx Instructions .ROUTE 07/23/19 .COMPLEX #90 tab lisinopril 40 mg tablet See Rx Instructions .ROUTE 07/23/19 .COMPLEX #90 tab gabapentin 600 mg tablet 600 mg PO QID #120 tab 08/07/19 levofloxacin 500 mg tablet 500 mg PO DAILY #7 tab 08/27/19 hydrocodone 7.5 mg-acetaminophen 1 tab PO QID PRN #120 tab 10/02/19 325 mg tablet Allergies Allergy/AdvReac Type Severity Reaction Status Date / Time enoxaparin [From Lovenox] Allergy Severe Anaphylaxis Verified 06/09/19 10:28 Antihistamines - Alkyl
[2019-10-08 21:25] VITALS: BP 161/95; PULSE 85; RESP 17; TEMP 36.5
== END 2019-10-08 21:25 | disposition home or self-care (01) ==
PROVIDERS: Emergency Provider Emergency Medicine; PCP Emergency Medicine
DX: M54.16 Radiculopathy, lumbar region (principal); I10 Essential (primary) hypertension; K21.9 Gastro-esophageal reflux disease without esophagitis; F41.8 Other specified anxiety disorders; Z79.899 Other long term (current) drug therapy
CPT/HCPCS: 96374; 96375; 96376; 99281; J2405

== ENCOUNTER 2019-10-30 20:22 | Emergency (ER) | payer BC, SELFPAY ==
[2019-10-30 20:53] VITALS: BP 171/92; PULSE 64; RESP 18; TEMP 36.9; O2SAT 99; BMI 22.4
[2019-10-30 21:00] VITALS: BP 164/89; PULSE 68; RESP 17; O2SAT 99
--- NOTE | 2019-10-30 21:16 | HMH.EDGENADL ---
ED Disposition Clinical Impression: Cervical radicular pain Disposition: Home, Self-Care Condition on Discharge: Good Instructions: DI for Neck Pain Additional Instructions: use meds and call pcp saturday Referrals: Cristian Olvera MD [Primary Care Provider] - - Critical Care Critical Care Time: No Attestation: On 10/30/19, the high probability of a clinically significant, sudden or life threatening deterioration of the following system(s) required my full and direct attention, intervention and personal management. The time I documented below is in addition to time spent performing reported procedures but includes the following listed in this critical care notation. Medical Decision Making - Medical Records Medical records reviewed: Yes: I reviewed the patient's medical records. - Bhavik Inquiry Pt receiving controlled substance: No Vital Signs: 10/30/19 20:53 10/30/19 21:00 10/30/19 21:30 Temperature 98.4 F Temperature Source Oral Pulse Rate [Right Radial] 64 68 68 Respiratory Rate 18 17 17 Blood Pressure [Left Arm] 171/92 H 164/89 H 165/90 H Blood Pressure Mean [Left Arm] 118 114 115 Blood Pressure Source [Left Arm] Automatic Cuff Automatic Cuff Automatic Cuff Blood Pressure Position [Left Arm] Sitting Supine Supine 02 Sat by Pulse Oximetry 99 99 99 Oxygen Delivery Method Room Air Room Air Room Air 10/30/19 22:00 10/30/19 22:30 10/30/19 23:00 Temperature Temperature Source Pulse Rate [Right Radial] 64 74 64 Respiratory Rate 18 18 18 Blood Pressure [Left Arm] 161/88 H 186/102 H 200/98 H Blood Pressure Mean [Left Arm] 112 130 132 Blood Pressure Source [Left Arm] Automatic Cuff Automatic Cuff Automatic Cuff Blood Pressure Position [Left Arm] Supine Supine Supine 02 Sat by Pulse Oximetry 99 99 99 Oxygen Delivery Method Room Air Room Air Room Air Orders (Tests/Meds): ED MEDICATIONS Discontinued Medications Generic Name Dose Route Start Last Admin Trade Name Freq PRN Reason Stop Dose Admin Diazepam 2.5 mg 10/30/19 21:12 10/30/19 21:30 Valium 10mg/2ml Syringe IV 10/30/19 21:13 2.5 mg ONCE ONE Administration Fentanyl Citrate 50 mcg 10/30/19 22:48 10/30/19 23:02 Fentanyl 250mcg/5ml Vial IV 10/30/19 22:49 50 mcg ONCE ONE Administration Hydromorphone HCl 1 mg 10/30/19 21:12 10/30/19 21:30 Dilaudid 2mg/Ml Syringe IV 10/30/19 21:13 1 mg ONCE ONE Administration Hydromorphone HCl 1 mg 10/30/19 22:22 10/30/19 22:23 Dilaudid 2mg/Ml Syringe IV 10/30/19 22:23 1 mg ONCE ONE Administration Methylprednisolone Sodium Succinate 125 mg 10/30/19 21:12 10/30/19 21:30 Solu-Medrol 125mg/2ml Vial IV 10/30/19 21:13 125 mg ONCE ONE Administration Promethazine HCl 12.5 mg 10/30/19 21:12 10/30/19 21:30 Phenergan 25mg/Ml 1ml Vial IV 10/30/19 21:13 12.5 mg ONCE ONE Administration Sodium Chloride 25 ml 10/30/19 21:12 10/30/19 21:31 Sod Chlor 0.9% 25ml Bag IV 10/30/19 21:13 25 ml ONCE ONE Administration General Adult HPI - General Chief complaint: PAIN Stated complaint: Pain back runs up to neck Time Seen by Provider: 10/30/19 21:00 Mode of Arrival: Ambulatory Source of Information: Patient, Spouse, Medical Record Limitations: No Limitations Description of Symptoms (Recalled from ER Triage Doc. by RN): States she has had back pain for the last 3 or 4 weeks but has worsened in the past 3.4 days. Back pain started 3 days ago states it is radiating on right side to shoulder. Describes as sharp, throbbing pain 10/10. Denies any injury. - History of Present Illness HPI narrative: progressive rt sided neck pain w/o fever or rash and no trauma - has not responded to ice and massage does radiate to rt upper ext - pt has hx of chronic back pain - has seen pain center - Onset (ago): day(s) Location: neck Radiation: extremity Severity: moderate Associated symptoms: denies other symptoms Treatments prior to arrival: none
[2019-10-30 21:30] VITALS: BP 165/90; PULSE 68; RESP 17; O2SAT 99
[2019-10-30 22:00] VITALS: BP 161/88; PULSE 64; RESP 18; O2SAT 99
[2019-10-30 22:30] VITALS: BP 186/102; PULSE 74; RESP 18; O2SAT 99
[2019-10-30 23:00] VITALS: BP 200/98; PULSE 64; RESP 18; O2SAT 99
[2019-10-31] VITALS: BP 142/78; PULSE 83; RESP 15; TEMP 36.7; O2SAT 98
== END 2019-10-31 00:08 | disposition home or self-care (01) ==
PROVIDERS: Emergency Provider Emergency Medicine; PCP Emergency Medicine
DX: M54.12 Radiculopathy, cervical region (principal); I10 Essential (primary) hypertension; J44.9 Chronic obstructive pulmonary disease, unspecified; F41.8 Other specified anxiety disorders; K21.9 Gastro-esophageal reflux disease without esophagitis; F17.210 Nicotine dependence, cigarettes, uncomplicated; Z88.8 Allergy status to other drugs, medicaments and biological substances; Z79.899 Other long term (current) drug therapy
CPT/HCPCS: 96374; 96375; 96376; 99283

== ENCOUNTER 2019-11-12 04:54 | Emergency (ER) | payer BC, SELFPAY ==
[2019-11-12 04:55] VITALS: BMI 23.8
--- NOTE | 2019-11-12 04:55 | PC.NURSE ---
pt to rad upon arrival
--- NOTE | 2019-11-12 04:57 | PC.NURSE ---
called cb to start transfer
--- NOTE | 2019-11-12 05:03 | PC.NURSE ---
[facility] called for MD
--- NOTE | 2019-11-12 05:03 | ECG_ITS ---
APPROVED REPORT Exam: Resting ECG HR:77 bpm ECG Measurements Heart Rate 77 AXES NV 144 P 77 QRSd 90 QRS 76 QT 428 T 83 QTc 484 <Conclusion> Sinus rhythm with premature supraventricular complexes ST abnormality, possible lyte effect Prolonged QT Abnormal ECG Electronically signed by : Andrew Singh, 11/15/2019 21:20:50
--- NOTE | 2019-11-12 05:04 | CT_ITS ---
PROCEDURE: CT HEAD/BRAIN WO CON CLINICAL INDICATION: r/o cva Left arm and leg numbness/paresthesias in Slurred speech COMPARISON: No exams were available for comparison TECHNIQUE: Axial images obtained. All CT scans at the facility use one or more dose reduction, viz: automated exposure control, ma/kV adjustment per patient size (including targeted exams where dose is matched to indication, i.e. head), or iterative reconstruction technique. FINDINGS: No midline shift, mass effect, intracranial hemorrhage, hydrocephalus, or extra-axial fluid collection is evident. The calvarium has an unremarkable appearance. No mastoid effusion. There is mild mucosal thickening of the ethmoid and frontal sinuses IMPRESSION: No acute intracranial finding Paranasal sinus disease Dictated by: Bill Owens MD 11/12/2019 08:00 Electronically signed by Bill Owens MD in [place] 11/12/2019 08:00
--- NOTE | 2019-11-12 05:04 | PC.NURSE ---
called [facility] for flight status
[2019-11-12 05:05] VITALS: BP 155/93; PULSE 73; RESP 18; TEMP 37.2; O2SAT 98; BMI 23.8
--- NOTE | 2019-11-12 05:06 | PC.NURSE ---
speaking to stroke HAMMERER TAB at
--- NOTE | 2019-11-12 05:09 | PC.NURSE ---
[facility] accepted transfer. ETA 20 mins
[2019-11-12 05:16] LABS: Basophils # 0.1 K/mm3 (0-0.2); Basophils % 0.6 % (0.1-2.0); Eosinophils # 0.4 K/mm3 (0.0-0.4); Eosinophils % 3.4 % (0.1-12.0); Hematocrit 42.5 % (37.0-47.0); Hemoglobin 14.6 g/dL (12.2-16.2); Lymphocytes # 2.5 K/mm3 (0.7-4.5); Lymphocytes % 20.1 % (10-50); Mean Corpuscular HGB Conc 34.3 g/dL (31.8-35.4); Mean Corpuscular Hemoglobin 31.7 pg (27.0-31.2); Mean Corpuscular Volume 92.4 fl (81-99); Mean Platelet Volume 8.2 fl (7.4-10.4); Monocytes # 0.6 K/mm3 (0.1-1.0); Monocytes % 4.7 % (1.7-9.3); Neutrophils # 8.7 K/mm3 (1.8-7.8); Neutrophils % 71.2 % (37.0-80.0); Platelet Count 195 K/mm3 (142-424); Red Cell Distribution Width 13.4 % (11.5-17.5); White Blood Count 12.3 K/mm3 (4.8-10.8)
[2019-11-12 05:17] LABS: Chloride 110 mmol/L (98-107); Potassium 3.6 mmoL/L (3.5-5.1); Sodium 142 mmol/L (136-145)
[2019-11-12 05:20] LABS: Alanine Aminotransferase 19 U/L (12-78); Albumin Level 3.8 g/dl (3.5-5.0); Albumin/Globulin Ratio 1.6 (1.1-1.8); Alkaline Phosphatase 83 U/L (38-126); Anion Gap 7.6 mEq/L (5-15); Aspartate Amino Transferase 23 U/L (14-36); Bilirubin,Total 0.3 mg/dl (0.2-1.3); Blood Urea Nitrogen 15 mg/dl (7-17); Carbon Dioxide 28 mmol/L (22.0-30.0); Creatinine Clearance Estimated 79 mL/min (50-200); Estimated Glomerular Filt Rate 74 ml/min (>60); GFR (African American) 90 ML/MIN (>60); Globulin 2.4 g/dL (1.3-3.2); Total Protein,Serum 6.2 g/dl (6.3-8.2)
[2019-11-12 05:21] LABS: Calcium 8.8 mg/dl (8.4-10.2); Glucose 114 mg/dl (74-100)
[2019-11-12 05:26] VITALS: BP 165/94; PULSE 70; RESP 17; O2SAT 98
--- NOTE | 2019-11-12 05:30 | HMH.EDNEU ---
ED Disposition Clinical Impression: Cerebrovascular accident Disposition: Xfer Short-Term Hosp Condition on Discharge: Critical Referrals: Cristian Olvera MD [Primary Care Provider] - - Critical Care Critical Care Time: Yes Attestation: On 11/12/19, the high probability of a clinically significant, sudden or life threatening deterioration of the following system(s) required my full and direct attention, intervention and personal management. The time I documented below is in addition to time spent performing reported procedures but includes the following listed in this critical care notation. Total Critical Care Time: 40 Vital system(s) involved:: Central Nervous System My critical care processes included: Assessment & monitoring of V/S, Initial and Re-exams, Data Review/Interpretation, Coordinating Care, Medication Orders and management, Documentation Medical Decision Making - Medical Records Medical records reviewed: Yes: I reviewed the patient's medical records. - Bhavik Inquiry Pt receiving controlled substance: No Vital Signs: 11/12/19 05:05 11/12/19 05:26 Temperature 98.9 F Temperature Source Oral Pulse Rate [Right Brachial] 73 70 Respiratory Rate 18 17 Blood Pressure [Right Arm] 155/93 H 165/94 H Blood Pressure Mean [Right Arm] 113 117 Blood Pressure Source [Right Arm] Automatic Cuff Automatic Cuff Blood Pressure Position [Right Arm] Sitting Sitting 02 Sat by Pulse Oximetry 98 98 Oxygen Delivery Method Room Air Room Air - Lab Data Lab results reviewed: Yes: I reviewed the patient's lab results. Lab Results 11/12/19 05:04: WBC 12.3 H, RBC 4.60, Hgb 14.6, Hct 42.5, MCV 92.4, MCH 31.7 H, MCHC 34.3, RDW 13.4, Plt Count 195, MPV 8.2, Neut % (Auto) 71.2, Lymph % (Auto) 20.1, [place] % (Auto) 4.7, Eos % (Auto) 3.4, Baso % (Auto) 0.6, Neut # (Auto) 8.7 H, Lymph # (Auto) 2.5, [place] # (Auto) 0.6, Eos # (Auto) 0.4, Baso # (Auto) 0.1 11/12/19 05:04: Sodium 142, Potassium 3.6, Chloride 110 H, Carbon Dioxide 28, Anion Gap 7.6, BUN 15, Creatinine 0.80, Estimated Creat Clear 79, Estimated GFR 74, Est GFR ( Amer) 90, Glucose 114 H, Calcium 8.8, Total Bilirubin 0.3, AST 23, ALT 19, Alkaline Phosphatase 83, Total Protein 6.2 L, Albumin 3.8, Globulin 2.4, Albumin/Globulin Ratio 1.6 Result diagrams: 11/12/19 05:04 11/12/19 05:04 Orders (Tests/Meds): ORDERS Category Date Time Status CT head/brain wo con Stat Cat Scan 11/12/19 05:04 Ordered - CT Data CT Scan: Head Time Received: 05:00 Preliminary Findings: Normal/NAD Medical Decision Narrative: Spoke to Tita Ferraro nurse practitioner on the stroke team at [facility] in [place] she accepted the patient we are flying the patient out. Neuro HPI - General Chief Complaint: Neuro Symptoms/Deficit Stated Complaint: stroke alert Time Seen by Provider: 11/12/19 05:30 Mode of Arrival: Wheelchair Source of Information: Patient Limitations: Physical Limitations Description of Symptoms (Recalled from ER Triage Doc. by RN): Patient reports around 1400 yesterday she felt weird and as the day went on she felt a drunk weird . Patient reports when got up about an hour ago, she urinated all over herself and loss feeling in her left arm and leg. - History of Present Illness HPI Narrative: Female presents to the ED with an acute neurological deficits. Patient has flaccid paralysis on the left side with left-sided facial droop. Patient said the onset of symptoms started around 2 PM on November 10 which was roughly 15 hours prior to presentation here in the ED. Patient's states that when the symptoms started she had weakness in the left side not paralysis around 2 PM he finally got her in the car and was taking her appear to the hospital around 8 PM and she decided to go to [employer] and eat instead of come to the hospital. When she got up around 3 AM to use the bathroom she realized she could not move the left side of her body. And felicity
[2019-11-12 05:59] VITALS: BP 170/102; PULSE 75; RESP 16; TEMP 37.2; O2SAT 94
[2019-12-14 13:20] LABS: POC Glucose,Bedside 127 (70-110)
== END 2019-11-12 06:01 | disposition short-term general hospital (02) ==
PROVIDERS: Emergency Medicine; Emergency Provider Family Medicine
DX: I63.89 Other cerebral infarction (principal); R29.810 Facial weakness; G83.14 Monoplegia of lower limb affecting left nondominant side; F17.210 Nicotine dependence, cigarettes, uncomplicated; I10 Essential (primary) hypertension; J44.9 Chronic obstructive pulmonary disease, unspecified; K21.9 Gastro-esophageal reflux disease without esophagitis; F41.8 Other specified anxiety disorders; R29.713 NIHSS score 13; Z79.899 Other long term (current) drug therapy
CPT/HCPCS: 70450; 80053; 82962; 85025; 93005; 99284

== ENCOUNTER → 2019-12-29 11:14 | Outpatient (CLI) | payer BC, SELFPAY ==
[2019-12-30 09:19] LABS: Estradiol 47.6 pg/mL (.)
[2020-01-02 18:13] LABS: Testosterone, Total, LC/MS 23.7 ng/dL (.); Testosterone,Free 0.4 pg/mL (0.0-4.2)
== END ==
PROVIDERS: Visit Provider Obstetrics & Gynecology
DX: N95.1 Menopausal and female climacteric states (principal)
CPT/HCPCS: 36415; 82670; 84402; 84403

== ENCOUNTER 2020-01-28 10:00 | Outpatient (RCR) | payer BC, SELFPAY ==
--- NOTE | 2019-11-24 12:54 | HMH.OTOPEV ---
OT Inpatient Evaluation Rehab OT Outpatient Eval Start: 11/24/19 12:16 Freq: Status: Active Protocol: Document 11/24/19 12:17 RMARSHALL (Rec: 11/24/19 12:50 [id number] Electronically Signed By Morgan Cardenas OT 11/24/19 12:17 Outpatient Therapy Subjective History Subjective History Pt is a 54 year old female who reports to therapy for evaluation of LUE weakness from CVA. Pt reports her stroke was ~1 week ago. She began having symptoms last saturday, but waited till morning to go to the hospital. Pt was airlifted to [facility]. Pt does have a past medical history of HTN and chronic back pain. Pt presents with some flaccidity to LUE, especially at wrist and hand. Pt has limited AROM /strength at all joints. Pt is able to make a fist with left hand with minimal retail grocer strength. Pt reports her has to assist her with getting dressed and showering . She is currently using a quad cane during ambulation. According to patient, she is only able to complete any functional activity for ~10 minutes prior to having to rest. Pt has had one fall since returning home due to weakness in her leg and balance deficits. Pt will continue to be seen twice a week in order to address all deficits. STG ADLs Pt will be able to complete lower body dressing with minimal assistance. Pt will be able to complete upper body dressing with minimal assistance. Pt will be able to complete bathing/showering with moderate assistance for safety . LTG ADL's
--- NOTE | 2019-12-24 11:10 | HMH.RHREAS ---
Rehab Reassessment Rehab OP Re-assessment Start: 12/24/19 10:01 Freq: Status: Active Protocol: Document 12/24/19 10:02 KAVITA (Rec: 12/24/19 11:01 RMCHAPITOHALL [id number]) Electronically Signed By Morgan Cardenas OT 12/24/19 10:02 Rehab Re-assessment Subjective Subjective I just want my hand to work normally. Objective Objective Notes Pt continues to be seen twice a week in order to address all LUE deficits and ADL function . Pt engages in UE strengthening and arom exercises each session. Pt also complete neuro re- education activities in order to regain motor coordination. Hand exercises are also completed in order to regain fine motor skills to increase overall hand function. Prom manual stretching is applies to L UE to maintain motion and decrease spasticity of LUE. Assessment Progress Assessment Progressing as Expected Assessment Notes Pt has met all ADL goals written on initial evaluation. Pt is able to complete Upper and lower body dressing independently. Pt is also able to shower herself independently as well as get in and out of the shower with SBA. Pt sits in bathroom with her for safety but does not provide assistance. LUE has improved slightly, but continues to remain a clinical goal due to decrease function . Current AROM and MMT L shoulder Flex: 115 degrees; 4 Abd: 95 degrees; 3 ER: 55 degrees, 3+ IR: 65 degrees; 3+ L Elbow Flex: 135 degrees; 4+ Ext: 0 degrees; 4 Sup: 90 degrees; 3- Pro: 90 degrees; 3- L wrist Flex: 70 degrees; 4
== END 2020-01-28 10:05 | disposition home or self-care (01) ==
LOC: OT 10:00
PROVIDERS: Visit Provider Emergency Medicine
DX: G81.94 Hemiplegia, unspecified affecting left nondominant side; I63.9 Cerebral infarction, unspecified
CPT/HCPCS: 97110; 97140; 97164; 97166

== ENCOUNTER 2020-01-28 10:00 | Outpatient (RCR) | payer BC, SELFPAY ==
--- NOTE | 2019-11-24 11:07 | HMH.PTOPEV ---
PT Outpatient Evaluation Rehab PT Outpatient Evaluation Start: 11/24/19 09:51 Freq: Status: Active Protocol: Document 11/24/19 10:44 [place]EL (Rec: 11/24/19 11:07 SEAN [id number]) Electronically Signed By Kayode Le, PT 11/24/19 10:44 Outpatient Therapy Subjective History Subjective History Patient is a 54 year old female presenting to outpatient PT with reports of LLE/LUE weakness and decreased mobility S/P CVA 11/18/19. Symptoms specific to L side. She will be treated with OT for LUE symptoms. No loss in sensation. She presents wearing L AFO. Ambulatory with quad cane. Patient/Caregiver have made proper lifestyle modifications for safety in home. Comorbidities include hx of HTN, HL and LS pain. Chief Complaint Weakness Prior Functional Limitations None Current Functional Limitations Reaching,Lifting,Housework, Dressing,Driving,Sleeping, Standing,Squatting,Recreation Activity,Walking,Stairs, Balance,Bending/Stooping Balance Eval Subjective Hx of Complaint Comment Dec LLE strength secondary to CVA; 1 fall since onset of symptoms balance Chief Complaint Activity at onset 11/18/19 Prior Functional Limitations Prior Functional [place] Level none Current Functional Limitations Comment All standing/ambulatory activities. Hx of Falls Hx Falls Yes Number in last 6 months 1 Gait/Posture Asssessment General Gait Observation Decrease Weight Bear (L) Assistive Devices Straight Cane Level of Transfer Assist Independent Hip Observation in Gait Swing No Deviation Hip Observation in Gait Stance No Deviation Ankle/Foot Observation in Gait Swing Decreased Foot Clearance Body Alignment Posture Relaxed LE ROM Ankle/Foot Dorsiflexion w/Knee Extended -5 Active Range Motion (degrees) Ankle/Foot Dorsiflexion w/Knee Extended 0 Passive Range (degrees) Ankle/Foot ROM Limitations Soft Tissue Tightness,Muscle Weakness Timed Up and Go Test 3. Is the Timed Up and Go Test result < yes 12 seconds? [place] Feet Together/Eyes open/Stable Surface fail Feet Together/Eyes Closed/Stable Surface fail Fee
== END 2020-01-28 10:05 | disposition home or self-care (01) ==
LOC: PT 10:00
PROVIDERS: Visit Provider Emergency Medicine
DX: I63.9 Cerebral infarction, unspecified (principal)
CPT/HCPCS: 97110; 97112; 97140; 97163; 97164

== ENCOUNTER → 2020-06-20 14:35 | Outpatient (CLI) | payer BC, SELFPAY ==
[2020-06-20 15:21] LABS: Basophils # 0.1 K/mm3 (0-0.2); Basophils % 0.7 % (0.1-2.0); Eosinophils # 0.3 K/mm3 (0.0-0.4); Eosinophils % 2.8 % (0.1-12.0); Hematocrit 41.7 % (37.0-47.0); Hemoglobin 13.2 g/dL (12.2-16.2); Lymphocytes # 2.6 K/mm3 (0.7-4.5); Lymphocytes % 25.9 % (10-50); Mean Corpuscular HGB Conc 31.7 g/dL (31.8-35.4); Mean Corpuscular Hemoglobin 31.1 pg (27.0-31.2); Mean Corpuscular Volume 97.9 fl (81-99); Mean Platelet Volume 8.3 fl (7.4-10.4); Monocytes # 0.6 K/mm3 (0.1-1.0); Monocytes % 5.6 % (1.7-9.3); Neutrophils # 6.5 K/mm3 (1.8-7.8); Neutrophils % 65.2 % (37.0-80.0); Platelet Count 283 K/mm3 (142-424); Red Blood Count 4.26 M/mm3 (4.20-5.40)
[2020-06-20 16:23] LABS: Alanine Aminotransferase 15 U/L (12-78); Albumin Level 4.3 g/dl (3.5-5.0); Albumin/Globulin Ratio 1.9 (1.1-1.8); Alkaline Phosphatase 77 U/L (38-126); Aspartate Amino Transferase 22 U/L (14-36); Bilirubin,Total 0.4 mg/dl (0.2-1.3); Blood Urea Nitrogen 16 mg/dl (7-17); Calcium 9.6 mg/dl (8.4-10.2); Carbon Dioxide 27 mmol/L (22.0-30.0); Chloride 107 mmol/L (98-107); Chol/HDL Ratio 2.7 (1-3.5); Cholesterol 112 mg/dl (140-200); Estimated Glomerular Filt Rate 74 ml/min (>60); GFR (African American) 90 ML/MIN (>60); Globulin 2.3 g/dL (1.3-3.2); Glucose 78 mg/dl (74-100); HDL Cholesterol 42 mg/dl (40-60); Sodium 140 mmol/L (136-145); Total Protein,Serum 6.6 g/dl (6.3-8.2); Triglycerides 145 mg/dl (30-150); VLDL Cholesterol 29 mg/dL (0-40)
[2020-06-20 16:34] LABS: Direct LDL Cholesterol 39.37 mg/dL (100-129)
[2020-06-20 16:39] LABS: 25-OH Vitamin D, Total 61.1 ng/mL (30-100); Free T4 (Free Thyroxine) 0.87 ng/dl (0.78-2.19)
[2020-06-20 16:54] LABS: Thyroid Stimulating Hormone 0.11 uIU/mL (0.465-4.68)
[2020-06-22 13:28] LABS: Estradiol 92.6 pg/mL (.)
[2020-06-27 15:23] LABS: Testosterone, Total, LC/MS 23.4 ng/dL (.); Testosterone,Free 0.6 pg/mL (0.0-4.2)
== END ==
PROVIDERS: Obstetrics & Gynecology; Visit Provider Emergency Medicine
DX: Z00.00 Encounter for general adult medical examination without abnormal findings (principal); E55.9 Vitamin D deficiency, unspecified; I10 Essential (primary) hypertension; Z79.899 Other long term (current) drug therapy
CPT/HCPCS: 36415; 80053; 80061; 82306; 82670; 84402; 84403; 84439; 84443; 85025

== ENCOUNTER → 2020-08-16 13:55 | Outpatient (CLI) | payer BC, SELFPAY ==
[2020-08-16 14:41] LABS: Amphetamine/Metha Screen,Urine Negative ng/ml (<1000)
[2020-08-16 14:42] LABS: Barbiturates Screen,Urine Negative ng/ml (<200)
[2020-08-16 14:43] LABS: Benzodiazepines Screen,Urine Positive ng/ml (<200)
[2020-08-16 14:44] LABS: Cannabinoid Screen,Urine Negative ng/ml (<50)
[2020-08-16 14:45] LABS: Cocaine Screen,Urine Negative ng/ml (<300); Methadone Screen,Urine Negative ng/ml (<300)
[2020-08-16 14:46] LABS: Opiate Screen,Urine Positive ng/ml (<300)
[2020-08-16 14:47] LABS: Phencyclidine Screen,Urine Negative ng/ml (<25)
== END ==
PROVIDERS: Visit Provider Emergency Medicine
DX: Z79.899 Other long term (current) drug therapy (principal)
CPT/HCPCS: 80305

== ENCOUNTER → 2020-10-11 13:47 | Outpatient (CLI) | payer BC, SELFPAY ==
[2020-10-11 14:16] LABS: Amphetamine/Metha Screen,Urine Positive ng/ml (<1000); Barbiturates Screen,Urine Negative ng/ml (<200)
[2020-10-11 14:17] LABS: Benzodiazepines Screen,Urine Positive ng/ml (<200); Cannabinoid Screen,Urine Negative ng/ml (<50)
[2020-10-11 14:18] LABS: Cocaine Screen,Urine Negative ng/ml (<300)
[2020-10-11 14:19] LABS: Methadone Screen,Urine Negative ng/ml (<300); Opiate Screen,Urine Positive ng/ml (<300)
[2020-10-11 14:20] LABS: Phencyclidine Screen,Urine Negative ng/ml (<25)
== END ==
PROVIDERS: Visit Provider Emergency Medicine
DX: Z79.899 Other long term (current) drug therapy (principal)
CPT/HCPCS: 80305

== ENCOUNTER 2020-10-11 20:37 | Emergency (ER) | payer BC, SELFPAY ==
[2020-10-11 21:00] VITALS: BP 140/115; PULSE 76; O2SAT 97
[2020-10-11 21:12] VITALS: BP 165/107; PULSE 90; PULSE 93; RESP 16; TEMP 37; O2SAT 96; O2SAT 97; BMI 22.2
--- NOTE | 2020-10-11 21:25 | XR_ITS ---
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 Views: 1 or 2 view. COMPARISON: CR PEL1V XR pelvis 1-2V 07/08/2018 9:33 PM FINDINGS: Bones/joints: No acute fracture or dislocation. Soft tissues: Unremarkable. IMPRESSION: No acute fracture or dislocation.
--- NOTE | 2020-10-11 21:25 | XR_ITS ---
PROCEDURE INFORMATION: Exam: XR Lumbosacral Spine Exam date and time: 10/11/2020 9:25 PM Age: 55 years old Clinical indication: Injury or trauma; Other: Slipped in shower twisted back; Sprain or strain, lumbar ligaments; Injury date: 10/10/2020; Injury details: Slipped in shower and hurt low back and pelvis; Additional info: Lumbar pain TECHNIQUE: Imaging protocol: XR of the lumbosacral spine. Views: 4 or 5 views. COMPARISON: FINDINGS: Bones/joints: Normal. No acute fracture. Normal alignment. Soft tissues: Unremarkable. Vasculature: Vascular calcifications. IMPRESSION: No acute fracture or malalignment of the lumbar spine.
[2020-10-11 21:30] VITALS: BP 166/100; PULSE 88; O2SAT 97
[2020-10-11 21:41] LABS: Basophils # 0.1 K/mm3 (0-0.2); Basophils % 0.6 % (0.1-2.0); Eosinophils # 0.3 K/mm3 (0.0-0.4); Eosinophils % 3.7 % (0.1-12.0); Hematocrit 42.1 % (37.0-47.0); Hemoglobin 13.8 g/dL (12.2-16.2); Lymphocytes # 2.4 K/mm3 (0.7-4.5); Lymphocytes % 31.9 % (10-50); Mean Corpuscular HGB Conc 32.7 g/dL (31.8-35.4); Mean Corpuscular Hemoglobin 30.7 pg (27.0-31.2); Mean Corpuscular Volume 93.7 fl (81-99); Mean Platelet Volume 7.9 fl (7.4-10.4); Monocytes # 0.6 K/mm3 (0.1-1.0); Monocytes % 7.4 % (1.7-9.3); Neutrophils # 4.2 K/mm3 (1.8-7.8); Neutrophils % 56.3 % (37.0-80.0); Platelet Count 224 K/mm3 (142-424); Red Blood Count 4.49 M/mm3 (4.20-5.40); Red Cell Distribution Width 13.5 % (11.5-17.5); White Blood Count 7.4 K/mm3 (4.8-10.8)
--- NOTE | 2020-10-11 21:42 | HMH.EDGENADL ---
ED Disposition Clinical Impression: Lumbar back pain, Lumbar disc disease with radiculopathy, Lumbar degenerative disc disease Fall Qualifiers: Encounter type: initial encounter Qualified Code(s): W19.XXXA - Unspecified fall, initial encounter Disposition: Home, Self-Care Condition on Discharge: Fair Instructions: DI for Low Back Pain Additional Instructions: call pcp for follow up Referrals: Cristain Olvera MD [Primary Care Provider] - - Critical Care Critical Care Time: No Attestation: On 10/11/20, the high probability of a clinically significant, sudden or life threatening deterioration of the following system(s) required my full and direct attention, intervention and personal management. The time I documented below is in addition to time spent performing reported procedures but includes the following listed in this critical care notation. Medical Decision Making - Medical Records Medical records reviewed: Yes: I reviewed the patient's medical records. - Bhavik Inquiry Pt receiving controlled substance: No Vital Signs: 10/11/20 21:12 Temperature 98.6 F Temperature Source Oral Pulse Rate [Right] 93 H Respiratory Rate 16 Blood Pressure [Right Arm] 165/107 H Blood Pressure Mean [Right Arm] 126 Blood Pressure Source [Right Arm] Automatic Cuff Blood Pressure Position [Right Arm] Sitting 02 Sat by Pulse Oximetry 96 Oxygen Delivery Method Room Air - Lab Data Lab results reviewed: Yes: I reviewed the patient's lab results. Lab Results 10/11/20 21:30: WBC 7.4, RBC 4.49, Hgb 13.8, Hct 42.1, MCV 93.7, MCH 30.7, MCHC 32.7, RDW 13.5, Plt Count 224, MPV 7.9, Neut % (Auto) 56.3, Lymph % (Auto) 31.9, [place] % (Auto) 7.4, Eos % (Auto) 3.7, Baso % (Auto) 0.6, Neut # (Auto) 4.2, Lymph # (Auto) 2.4, [place] # (Auto) 0.6, Eos # (Auto) 0.3, Baso # (Auto) 0.1, ESR 20 10/11/20 21:30: Sodium 139, Potassium 3.7, Chloride 107, Carbon Dioxide 26, Anion Gap 9.7, BUN 13, Creatinine 0.70, Estimated Creat Clear 89, Estimated GFR 87, Est GFR ( Amer) 105, Glucose 87, Calcium 8.7, Total Bilirubin 0.6, AST 33, ALT 18, Alkaline Phosphatase 69, C-Reactive Protein 1.8, Total Protein 6.6, Albumin 4.1, Globulin 2.5, Albumin/Globulin Ratio 1.6, Procalcitonin < 0.030 Result diagrams: 10/11/20 21:30 10/11/20 21:30 Orders (Tests/Meds): ED MEDICATIONS Generic Name Dose Route Start Last Admin Trade Name Freq PRN Reason Stop Dose Admin Sodium Chloride 1,000 mls @ 999 mls/hr 10/11/20 21:30 10/11/20 21:41 Sod Chlor 0.9% 1000ml Bag IV 10/11/20 22:30 999 mls/hr .Q1H1M SHELRY Administration Discontinued Medications Generic Name Dose Route Start Last Admin Trade Name Freq PRN Reason Stop Dose Admin Hydromorphone HCl 1 mg 10/11/20 21:33 10/11/20 21:41 Hydromorphone 2mg/Ml Syringe IV 10/11/20 21:34 1 mg ONCE ONE Administration Methylprednisolone Sodium Succinate 125 mg 10/11/20 21:27 10/11/20 21:40 Methylprednisolone Sod Succ 125mg Vial IV 10/11/20 21:28 125 mg ONCE ONE Administration Morphine Sulfate 4 mg 10/11/20 21:25 10/11/20 22:24 Morphine 4mg/Ml Syringe IV 10/11/20 21:26 Not Given ONCE ONE Ondansetron HCl 4 mg 10/11/20 21:25 10/11/20 21:40 Ondansetron 4mg/2ml Vial IV 10/11/20 21:26 4 mg ONCE ONE Administration ORDERS Category Date Time Status XR lumbar spine min 4V Stat Exams 10/11/20 21:25 Taken XR pelvis 1-2V Stat Exams 10/11/20 21:25 Taken - Radiology Data #1 Image(s): L-Spine, Pelvis Image Reviewed: Yes I reviewed the patient's radiology image Preliminary Findings: Abnormal, No Fracture Seen Medical Decision Narrative: acute pain with no def fx will have pt call pcp for follow up General Adult HPI - General Chief complaint: PAIN Stated complaint: AO 10/10/20 fell out of bathtub hurt back Time Seen by Provider: 06/29/21 21:43 Mode of Arrival: Ambulatory Source of Information: Patient, Spouse, Medical Record Limitations: No Limitati
[2020-10-11 21:48] LABS: Alanine Aminotransferase 18 U/L (12-78); Albumin Level 4.1 g/dl (3.5-5.0); Albumin/Globulin Ratio 1.6 (1.1-1.8); Alkaline Phosphatase 69 U/L (38-126); Anion Gap 9.7 mEq/L (5-15); Aspartate Amino Transferase 33 U/L (14-36); Bilirubin,Total 0.6 mg/dl (0.2-1.3); Blood Urea Nitrogen 13 mg/dl (7-17); Calcium 8.7 mg/dl (8.4-10.2); Carbon Dioxide 26 mmol/L (22.0-30.0); Chloride 107 mmol/L (98-107); Creatinine Clearance Estimated 89 mL/min (50-200); Estimated Glomerular Filt Rate 87 ml/min (>60); GFR (African American) 105 ML/MIN (>60); Globulin 2.5 g/dL (1.3-3.2); Glucose 87 mg/dl (74-100); Potassium 3.7 mmoL/L (3.5-5.1); Sodium 139 mmol/L (136-145); Total Protein,Serum 6.6 g/dl (6.3-8.2)
[2020-10-11 21:53] LABS: C-Reactive Protein 1.8 mg/L (0-4)
[2020-10-11 22:00] VITALS: BP 163/104; PULSE 86; O2SAT 95
[2020-10-11 22:08] LABS: Procalcitonin < 0.030 ng/mL (0.0-2.0)
[2020-10-11 22:11] LABS: Erythrocyte Sedimentation Rate 20 mm/hr (0-30)
--- NOTE | 2020-10-11 22:12 | PC.NURSE ---
patient to radiology
[2020-10-11 22:44] VITALS: BP 148/88; PULSE 82; RESP 14; TEMP 37; O2SAT 97
== END 2020-10-11 22:52 | disposition home or self-care (01) ==
PROVIDERS: Emergency Provider Emergency Medicine; PCP Emergency Medicine
DX: M51.16 Intervertebral disc disorders with radiculopathy, lumbar region (principal); I10 Essential (primary) hypertension; F17.210 Nicotine dependence, cigarettes, uncomplicated; J44.9 Chronic obstructive pulmonary disease, unspecified; K21.9 Gastro-esophageal reflux disease without esophagitis; E78.5 Hyperlipidemia, unspecified; Z79.899 Other long term (current) drug therapy; W16.212A Fall in (into) filled bathtub causing other injury, initial encounter; Y92.019 Unspecified place in single-family (private) house as the place of occurrence of the external cause
CPT/HCPCS: 72110; 72170; 80053; 84145; 85025; 85651; 86140; 96365; 96375; 96376; 99282; J2405

== ENCOUNTER → 2020-11-29 10:10 | Outpatient (CLI) | payer BC, SELFPAY ==
[2020-11-29 11:41] LABS: T4 (Thyroxine) 11.5 ug/dl (5.53-11.0)
[2020-11-29 11:54] LABS: Thyroid Stimulating Hormone 0.07 uIU/mL (0.465-4.68)
[2020-11-30 08:21] LABS: Triiodothyronine (T3) Total 543 ng/dL (71-180)
== END ==
PROVIDERS: Visit Provider Specialist
DX: I63.9 Cerebral infarction, unspecified (principal)
CPT/HCPCS: 36415; 84436; 84443; 84480

== ENCOUNTER → 2020-12-06 15:17 | Outpatient (CLI) | payer BC, SELFPAY ==
[2020-12-06 15:54] LABS: Amphetamine/Metha Screen,Urine Positive ng/ml (<1000)
[2020-12-06 15:56] LABS: Barbiturates Screen,Urine Negative ng/ml (<200)
[2020-12-06 15:57] LABS: Benzodiazepines Screen,Urine Positive ng/ml (<200)
[2020-12-06 15:58] LABS: Cannabinoid Screen,Urine Negative ng/ml (<50); Cocaine Screen,Urine Negative ng/ml (<300)
[2020-12-06 16:00] LABS: Opiate Screen,Urine Negative ng/ml (<300)
[2020-12-06 16:22] LABS: Methadone Screen,Urine Negative ng/ml (<300); Phencyclidine Screen,Urine Negative ng/ml (<25)
== END ==
PROVIDERS: Visit Provider Emergency Medicine
DX: Z76.0 Encounter for issue of repeat prescription (principal)
CPT/HCPCS: 80305

== ENCOUNTER → 2020-12-13 15:07 | Outpatient (CLI) | payer BC, SELFPAY ==
--- NOTE | 2020-12-13 15:07 | MR_ITS ---
PROCEDURE: MR HEAD/BRAIN WO CON CLINICAL INDICATION: CVA COMPARISON: CT CT HEAD/BRAIN WO CON from 11/12/2019 TECHNIQUE: Routine multiplanar multisequence images obtained without contrast.. FINDINGS: No restricted diffusion. No evidence of acute infarction. The cerebellopontine angles and cerebellum have an unremarkable appearance. Cystic changes are present in the right aspect of the rik. This is not demonstrate restricted diffusion and may represent cystic encephalomalacia change from an old infarction. This area measures approximately 9 mm. No midline shift or mass effect. No acute intracranial hemorrhage. There a few small T2 white matter hyperintensities nonspecific. No mastoid effusion or sinus air-fluid level. IMPRESSION: 1. No acute finding. 2. Small cystic area noted in the right rik anteriorly suggesting a small area of cystic encephalomalacia from an old infarction. Dictated by: Bill Owens MD 12/14/2020 13:37 Bill Owens MD in [place] 12/14/2020 13:37
== END ==
PROVIDERS: PCP Emergency Medicine; Visit Provider Specialist
DX: I63.9 Cerebral infarction, unspecified (principal)
CPT/HCPCS: 70551

== ENCOUNTER → 2021-02-01 15:43 | Outpatient (CLI) | payer BC, SELFPAY ==
[2021-02-01 16:40] LABS: Amphetamine/Metha Screen,Urine Positive ng/ml (<1000); Benzodiazepines Screen,Urine Positive ng/ml (<200)
[2021-02-01 16:41] LABS: Barbiturates Screen,Urine Negative ng/ml (<200)
[2021-02-01 16:42] LABS: Cannabinoid Screen,Urine Negative ng/ml (<50); Cocaine Screen,Urine Negative ng/ml (<300)
[2021-02-01 16:43] LABS: Methadone Screen,Urine Negative ng/ml (<300)
[2021-02-01 16:44] LABS: Opiate Screen,Urine Positive ng/ml (<300); Phencyclidine Screen,Urine Negative ng/ml (<25)
== END ==
PROVIDERS: Visit Provider Emergency Medicine
DX: Z79.899 Other long term (current) drug therapy (principal)
CPT/HCPCS: 80305

== ENCOUNTER → 2021-03-29 13:53 | Outpatient (CLI) | payer BC, SELFPAY ==
[2021-03-29 14:26] LABS: Amphetamine/Metha Screen,Urine Positive ng/ml (<1000); Barbiturates Screen,Urine Negative ng/ml (<200)
[2021-03-29 14:27] LABS: Benzodiazepines Screen,Urine Positive ng/ml (<200); Cannabinoid Screen,Urine Negative ng/ml (<50)
[2021-03-29 14:28] LABS: Cocaine Screen,Urine Negative ng/ml (<300)
[2021-03-29 14:29] LABS: Methadone Screen,Urine Negative ng/ml (<300); Opiate Screen,Urine Positive ng/ml (<300)
[2021-03-29 14:30] LABS: Phencyclidine Screen,Urine Negative ng/ml (<25)
== END ==
PROVIDERS: Visit Provider Emergency Medicine
DX: M54.50 Low back pain, unspecified (principal)
CPT/HCPCS: 80305

== ENCOUNTER 2021-04-03 21:29 | Emergency (ER) | payer BC, SELFPAY ==
[2021-04-03 21:30] VITALS: BP 177/106; PULSE 85; RESP 16; TEMP 36.7; O2SAT 99; BMI 23.9
--- NOTE | 2021-04-03 21:56 | CT_ITS ---
PROCEDURE INFORMATION: Exam: CT Chest Without Contrast; Diagnostic Exam date and time: 04/03/2021 9:56 PM Age: 55 years old Clinical indication: Injury or trauma; Fall; Blunt trauma (contusions or hematomas); Injury details: Patient fell down some steps, lateral chest wall pain. TECHNIQUE: Imaging protocol: Diagnostic computed tomography of the chest without contrast. Radiation optimization: All CT scans at this facility use at least one of these dose optimization techniques: automated exposure control; mA and/or kV adjustment per patient size (includes targeted exams where dose is matched to clinical indication); or iterative reconstruction. COMPARISON: [facility] CT CHEST W/O CONTRAST 06/22/2014 9:38 PM FINDINGS: Lungs: Bilateral dependent atelectasis. Minimal paraseptal emphysematous changes. Lungs are otherwise clear. Pleural spaces: Unremarkable. No pneumothorax. No pleural effusion. Heart: Unremarkable. No cardiomegaly. No pericardial effusion. Aorta: Unremarkable. No aortic aneurysm. Lymph nodes: Unremarkable. No enlarged lymph nodes. Bones/joints: Unremarkable. No acute fracture. Soft tissues: Unremarkable. IMPRESSION: No acute appearing findings.
--- NOTE | 2021-04-03 22:14 | HMH.EDFALL ---
ED Disposition Clinical Impression: Contusion of rib on left side Qualifiers: Encounter type: initial encounter Qualified Code(s): S20.212A - Contusion of left front wall of thorax, initial encounter Disposition: Home, Self-Care Condition on Discharge: Good Instructions: DI for Rib Contusion Additional Instructions: see pcp for follow up Referrals: Cristian Olvera MD [Primary Care Provider] - - Critical Care Critical Care Time: No Attestation: On 04/03/21, the high probability of a clinically significant, sudden or life threatening deterioration of the following system(s) required my full and direct attention, intervention and personal management. The time I documented below is in addition to time spent performing reported procedures but includes the following listed in this critical care notation. Medical Decision Making - Medical Records Medical records reviewed: Yes: I reviewed the patient's medical records. - Bhavik Inquiry Pt receiving controlled substance: No Vital Signs: 04/03/21 21:30 Temperature 98.0 F Temperature Source Oral Pulse Rate [Apical] 85 Respiratory Rate 16 Blood Pressure [Right Arm] 177/106 H Blood Pressure Mean [Right Arm] 129 Blood Pressure Source [Right Arm] Automatic Cuff Blood Pressure Position [Right Arm] Sitting 02 Sat by Pulse Oximetry 99 Oxygen Delivery Method Room Air Orders (Tests/Meds): ED MEDICATIONS Discontinued Medications Generic Name Dose Route Start Last Admin Trade Name Vaughn PRN Reason Stop Dose Admin Hydromorphone HCl 1 mg 04/03/21 21:56 04/03/21 22:07 Hydromorphone 2mg/Ml Syringe IV 04/03/21 21:57 1 mg ONCE ONE Administration Hydromorphone HCl 1 mg 04/03/21 22:48 Hydromorphone 2mg/Ml Syringe IV 04/03/21 22:49 ONCE ONE Promethazine HCl 12.5 mg 04/03/21 21:56 04/03/21 22:06 Promethazine Hcl 25mg/Ml 1ml Vial IV 04/03/21 21:57 Not Given ONCE ONE Sodium Chloride 25 ml 04/03/21 21:56 04/03/21 22:06 Sodium Chloride 0.9% 25ml Bag IV 04/03/21 21:57 Not Given ONCE ONE - CT Data CT Scan: Chest Time Received: 22:[address] Reviewed: Yes: I have viewed the radiologist's interpretation Preliminary Findings: No Fracture Seen Medical Decision Narrative: no fx and stable exam Fall HPI - General Chief Complaint: Fall Stated Complaint: AO20@1930 Fall Time Seen by Provider: 04/03/21 21:40 Mode of Arrival: Ambulatory Source of Information: Patient, Medical Record Limitations: No Limitations Description of Symptoms (Recalled from ER Triage Doc. by RN): Patient arrived via private vehicle. States that at roughly 1930 she was walking into her laundry room and tripped over her daughters dog and tripped. When she tripped she hit her washer and dryer and injured her left side under her arm. Patient states that the pain continues down into her left hip. - History of Present Illness HPI Narrative: pt with fall and lt rib pain tonight MD complaint: fall Onset (ago): hour(s) Fall from: standing Fall witnessed: yes, by family Place fall occurred: home Loss of consciousness: none Prolonged down time: no Context: tripped/slipped Location of injury: chest Severity: moderate Associated symptoms (after fall): denies - Related Data Previous Rx's Medication Instructions Recorded carvedilol 12.5 mg tablet 12.5 mg PO DAILY #90 tab 06/03/20 amlodipine 10 mg tablet See Rx Instructions .ROUTE 08/29/20 .COMPLEX #90 tab atorvastatin 80 mg tablet See Rx Instructions .ROUTE 08/29/20 .COMPLEX #90 tab ropinirole 2 mg tablet 2 mg PO DAILY #90 tab 10/11/20 raloxifene 60 mg tablet See Rx Instructions .ROUTE 12/15/20 .COMPLEX #30 tab lisinopril 40 mg tablet See Rx Instructions .ROUTE 12/20/20 .COMPLEX #90 tab clopidogrel 75 mg tablet 75 mg PO DAILY #90 tab 02/15/21 metoclopramide HCl 10 mg tablet See Rx Instructions .ROUTE 03/14/21 .COMPLEX #120 tab diazepam 5 mg tablet 5 mg PO QHS #30 tab 03/29/21 gabap
[2021-04-03 22:55] VITALS: BP 166/89; PULSE 83; RESP 18; TEMP 36.7; O2SAT 98
== END 2021-04-03 23:02 | disposition home or self-care (01) ==
PROVIDERS: Emergency Provider Emergency Medicine; PCP Emergency Medicine
DX: S20.212A Contusion of left front wall of thorax, initial encounter (principal); W18.00XA Striking against unspecified object with subsequent fall, initial encounter; Y92.019 Unspecified place in single-family (private) house as the place of occurrence of the external cause; F17.210 Nicotine dependence, cigarettes, uncomplicated
CPT/HCPCS: 71250; 96374; 96375; 99283

== ENCOUNTER → 2021-05-03 14:17 | Outpatient (CLI) | payer BC, SELFPAY ==
[2021-05-03 15:11] LABS: Barbiturates Screen,Urine Negative ng/ml (<200); Benzodiazepines Screen,Urine Positive ng/ml (<200)
[2021-05-03 15:12] LABS: Amphetamine/Metha Screen,Urine Negative ng/ml (<1000)
[2021-05-03 15:13] LABS: Cannabinoid Screen,Urine Negative ng/ml (<50); Cocaine Screen,Urine Negative ng/ml (<300)
[2021-05-03 15:14] LABS: Methadone Screen,Urine Negative ng/ml (<300)
[2021-05-03 15:15] LABS: Opiate Screen,Urine Positive ng/ml (<300); Phencyclidine Screen,Urine Negative ng/ml (<25)
== END ==
PROVIDERS: Visit Provider Emergency Medicine
DX: Z79.899 Other long term (current) drug therapy (principal)
CPT/HCPCS: 80305

== ENCOUNTER → 2021-05-26 16:47 | Outpatient (CLI) | payer BC, SELFPAY ==
[2021-05-26 13:44] LABS: Amphetamine/Metha Screen,Urine Positive ng/ml (<1000)
[2021-05-26 13:45] LABS: Barbiturates Screen,Urine Negative ng/ml (<200)
[2021-05-26 13:46] LABS: Benzodiazepines Screen,Urine Positive ng/ml (<200); Cannabinoid Screen,Urine Negative ng/ml (<50)
[2021-05-26 13:47] LABS: Cocaine Screen,Urine Negative ng/ml (<300); Methadone Screen,Urine Negative ng/ml (<300)
[2021-05-26 13:48] LABS: Opiate Screen,Urine Positive ng/ml (<300)
[2021-05-26 13:49] LABS: Phencyclidine Screen,Urine Negative ng/ml (<25)
== END ==
PROVIDERS: Visit Provider Emergency Medicine
DX: R82.90 Unspecified abnormal findings in urine (principal); Z79.899 Other long term (current) drug therapy
CPT/HCPCS: 80305; 87086

== ENCOUNTER → 2021-06-08 09:27 | Outpatient (CLI) | payer BC, SELFPAY ==
[2021-06-08 10:06] LABS: Basophils # 0.1 K/mm3 (0-0.2); Eosinophils # 0.2 K/mm3 (0.0-0.4); Eosinophils % 3.4 % (0.1-12.0); Hematocrit 40.1 % (37.0-47.0); Hemoglobin 13.2 g/dL (12.2-16.2); Lymphocytes # 1.8 K/mm3 (0.7-4.5); Lymphocytes % 25.6 % (10-50); Mean Corpuscular HGB Conc 32.9 g/dL (31.8-35.4); Mean Corpuscular Hemoglobin 31.6 pg (27.0-31.2); Mean Corpuscular Volume 95.9 fl (81-99); Mean Platelet Volume 7.8 fl (7.4-10.4); Monocytes # 0.6 K/mm3 (0.1-1.0); Monocytes % 8.2 % (1.7-9.3); Neutrophils # 4.4 K/mm3 (1.8-7.8); Neutrophils % 61.8 % (37.0-80.0); Platelet Count 281 K/mm3 (142-424); Red Blood Count 4.18 M/mm3 (4.20-5.40); Red Cell Distribution Width 13.1 % (11.5-17.5); White Blood Count 7.1 K/mm3 (4.8-10.8)
[2021-06-08 10:28] LABS: Chloride 104 mmol/L (98-107); Potassium 4.5 mmoL/L (3.5-5.1); Sodium 135 mmol/L (136-145)
[2021-06-08 10:30] LABS: Blood Urea Nitrogen 25 mg/dl (7-17); Estimated Glomerular Filt Rate 74 ml/min (>60); GFR (African American) 90 ML/MIN (>60)
[2021-06-08 10:31] LABS: Alanine Aminotransferase 22 U/L (12-78); Alkaline Phosphatase 64 U/L (38-126); Anion Gap 7.5 mEq/L (5-15); Aspartate Amino Transferase 29 U/L (14-36); Bilirubin,Direct 0.2 mg/dl (0.0-0.4); Bilirubin,Indirect 0.3 mg/dL (0.0-0.9); Bilirubin,Total 0.5 mg/dl (0.2-1.3); Bilirubin,Unconjugated 0.3 mg/dL (0.0-1.1); Calcium 8.1 mg/dl (8.4-10.2); Carbon Dioxide 28 mmol/L (22.0-30.0); Cholesterol 113 mg/dl (140-200); Glucose 82 mg/dl (74-100); Total Protein,Serum 5.9 g/dl (6.3-8.2); Triglycerides 115 mg/dl (30-150); VLDL Cholesterol 23 mg/dL (0-40)
[2021-06-08 10:32] LABS: Chol/HDL Ratio 2.6 (1-3.5); HDL Cholesterol 43 mg/dl (40-60)
[2021-06-08 10:42] LABS: Direct LDL Cholesterol 47.71 mg/dL (100-129)
[2021-06-08 10:49] LABS: Triiodothryronine (T3) Uptake 28 % (23.5-40.5)
[2021-06-08 10:50] LABS: Free Thyroxine Index 2.2 ug/dL (5.93-13.13); T4 (Thyroxine) 7.9 ug/dl (5.53-11.0)
[2021-06-08 11:03] LABS: Thyroid Stimulating Hormone 0.02 uIU/mL (0.465-4.68)
== END ==
PROVIDERS: PCP Emergency Medicine; Visit Provider Physician Assistant
DX: R06.00 Dyspnea, unspecified (principal); I11.9 Hypertensive heart disease without heart failure; I63.9 Cerebral infarction, unspecified; J44.9 Chronic obstructive pulmonary disease, unspecified; R53.83 Other fatigue; E11.9 Type 2 diabetes mellitus without complications; K21.9 Gastro-esophageal reflux disease without esophagitis; R94.31 Abnormal electrocardiogram [ECG] [EKG]
CPT/HCPCS: 36415; 80048; 80061; 80076; 84436; 84443; 84479; 85025; 93225

== ENCOUNTER → 2021-06-16 10:17 | Outpatient (CLI) | payer BC, SELFPAY ==
--- NOTE | 2021-06-16 10:17 | US_ITS ---
FINAL REPORT CLINICAL HISTORY: hyperthyroidism FINDINGS: THYROID ULTRASOUND Sonographic images of the thyroid was obtained. The right lobe of the thyroid measures 4.1 x 1.4 x 1.3 cm. The left lobe of the thyroid measures 3.5 x 1.3 x 1.2 cm. The isthmus measures 2 mm. There is a 5 x 5 x 3 mm solid, hypoechoic nodule in the right lobe, TI-RADS 4. There is a 7 x 4 x 4 mm solid, hypoechoic nodule in the right lobe, TI-RADS 4. There is an 8 x 10 x 6 mm mostly isoechoic nodule in the left lobe, TI-RADS 3. IMPRESSION: Bilateral thyroid nodules as described. No follow-up recommended. Reviewed, Interpreted and Dictated by Jostin Dupree III, MD Transcribed by Rolanda Farrar Authenticated by Jostin Dupree III, MD on 06/16/2021 12:18:48 PM [facility]
--- NOTE | 2021-06-16 10:27 | CA_ITS ---
APPROVED REPORT EXAM: Comprehensive 2D, Doppler, and color-flow Echocardiogram Shuttle Route Vehicle Operator: Nohelia Umanzor CRT Ht: 5 ft 3 in Wt: 141lbs BSA: 1.67 BP: 125/69 mmHg Indications: cp,abn ekg,hx cva,copd,fatigue,htn,hld,gerd 2D Dimensions LVOT 1.62 cm (M/F) 1.5-2.5 LA Volume 23.90 mL LA Volume Index 14.39 mL/m2 (M/F) 16-34 M-Mode Dimensions RVDd 3.59 cm (0.9-2.6) LA Diam 2.07 cm (1.9-4.0) LVDd 3.62 cm (3.5-5.7) Ao Diam 3.63 cm (2.0-3.7) LVDs 2.46 cm (3.5-5.7) IVSd 1.21 cm (0.6-1.1) PWd 0.75 cm (0.6-1.1) EF (Teich) 61.20% FS 32.00% EDV (Teich) 55.20 mL TAPSE 2.55 (<1.7) ESV (Teich) 21.40 mL LV Diastology E Decel Time 207.00 (160-240 msec) E/A Ratio 0.91 MED E' 7.30 (< 7 cm/sec) MED A' 11.00 cm/s E'/MED E' Ratio 10.53 (>14) LAT E' 6.60 (<10 cm/sec) LAT A' 11.80 cm/s E/LAT E' Ratio 11.65 (>14) Aortic Valve AO Peak GR. 4.70 mmHg Mitral Valve MV A Velocity 84.00 (40-130 cm/s) E/A Ratio 0.91 MV Decel. Time 207.00 (160-240 ms) Pulmonary Valve PV Peak Velocity 116.00 (50-150 cm/s) Tricuspid Valve TR P. Velocity 210.00 cm/s RAP Estimate 10.00 mmHg RVSP 27.60 mmHg Left Ventricle Left atrium is mildly enlarged, left ventricle is normal size, mild concentric left ventricular hypertrophy, visually estimated ejection fraction 55% with no regional wall motion abnormality, grade 1 diastolic dysfunction seen without tissue Doppler evidence of raise left atrial pressure. Right Ventricle Right atrium and right ventricle are mildly enlarged with normal contractility. Aortic Valve Aortic valve is minimally thickened and fibrosed, there is no aortic stenosis or aortic insufficiency. Mitral Valve Mitral valve grossly normal, there is trace mitral regurgitation. Tricuspid Valve Tricuspid valve grossly normal, there is trace tricuspid regurgitation, tricuspid regurgitation jet velocity is inadequate for calculation of the right ventricular systolic pressure. Pulmonic Valve Pulmonic valve is poorly visualized. Great Vessels Aortic root is normal size. Inferior vena cava is poorly visualized. Pericardium No significant pericardial effusion noted. Conclusion 1. Mild biatrial enlargement, normal left ventricular size, mild concentric left ventricular hypertrophy, visually estimated ejection fraction 55% with no regional wall motion abnormality, grade 1 diastolic dysfunction seen without tissue Doppler evidence of raise left atrial pressure. 2. Mildly enlarged right ventricle with normal contractility. 3. Trace mitral and tricuspid regurgitation. 4. No significant pericardial effusion. 5. Inferior vena cava is poorly visualized. Electronically signed by : Chon Munoz MD 06/16/2021 12:16:00
== END ==
PROVIDERS: PCP Emergency Medicine; Visit Provider Physician Assistant
DX: E05.90 Thyrotoxicosis, unspecified without thyrotoxic crisis or storm (principal); I10 Essential (primary) hypertension; I63.9 Cerebral infarction, unspecified; R06.00 Dyspnea, unspecified; J44.9 Chronic obstructive pulmonary disease, unspecified; K21.9 Gastro-esophageal reflux disease without esophagitis; R53.83 Other fatigue; R94.31 Abnormal electrocardiogram [ECG] [EKG]
CPT/HCPCS: 76536; 93306; 95806

== ENCOUNTER → 2021-06-23 07:06 | Outpatient (CLI) | payer BC, SELFPAY | PROVIDERS: PCP Emergency Medicine; Visit Provider Physician Assistant | DX: R06.00 Dyspnea, unspecified (principal); I10 Essential (primary) hypertension; I63.9 Cerebral infarction, unspecified; J44.9 Chronic obstructive pulmonary disease, unspecified; R53.83 Other fatigue; R94.31 Abnormal electrocardiogram [ECG] [EKG]; K21.9 Gastro-esophageal reflux disease without esophagitis | CPT/HCPCS: 78452; 93017; A9502; J2785 ==

== ENCOUNTER → 2021-07-18 18:52 | Outpatient (CLI) | payer BC, SELFPAY | PROVIDERS: Visit Provider Emergency Medicine | DX: R82.90 Unspecified abnormal findings in urine (principal); B96.20 Unspecified Escherichia coli [E. coli] as the cause of diseases classified elsewhere | CPT/HCPCS: 87086; 87088; 87186 ==

== ENCOUNTER → 2021-08-30 12:10 | Outpatient (CLI) | payer BC, SELFPAY ==
--- NOTE | 2021-08-30 12:15 | XR_ITS ---
FINAL REPORT CLINICAL HISTORY: knee pain FINDINGS: RIGHT KNEE 4 views were obtained. There is no acute fracture or dislocation. There is mild patellofemoral joint degenerative change. There is no soft tissue abnormality. IMPRESSION: Degenerative change with no acute bony abnormality. Reviewed, Interpreted and Dictated by Jostin Dupree III, MD Transcribed by Melanie Blake Authenticated by Jostin Dupree III, MD on 08/30/2021 02:26:25 PM [facility]
== END ==
PROVIDERS: PCP Emergency Medicine; Visit Provider Orthopaedic Surgery
DX: M25.561 Pain in right knee (principal)
CPT/HCPCS: 73564

== ENCOUNTER → 2021-08-30 14:37 | Outpatient (CLI) | payer BC, SELFPAY ==
[2021-08-30 17:11] LABS: Thyroid Stimulating Hormone 1.95 uIU/mL (0.465-4.68)
[2021-09-01 10:03] LABS: Triiodothyronine (T3) Free 3.6 pg/mL (2.0-4.4)
[2021-09-02 06:13] LABS: Thyroid Stimulating Immunoglob <0.10 IU/L (0.00-0.55)
== END ==
PROVIDERS: PCP Emergency Medicine; Visit Provider Student in an Organized Health Care Education/Training Program
DX: E04.1 Nontoxic single thyroid nodule (principal)
CPT/HCPCS: 36415; 84439; 84443; 84445; 84481

== ENCOUNTER → 2022-01-01 07:36 | Outpatient (CLI) | payer BC, SELFPAY ==
[2022-01-01 15:32] LABS: Amphetamine/Metha Screen,Urine Positive ng/ml (<1000); Barbiturates Screen,Urine Negative ng/ml (<200)
[2022-01-01 15:33] LABS: Benzodiazepines Screen,Urine Positive ng/ml (<200)
[2022-01-01 15:34] LABS: Cannabinoid Screen,Urine Negative ng/ml (<50); Cocaine Screen,Urine Negative ng/ml (<300)
[2022-01-01 15:35] LABS: Methadone Screen,Urine Negative ng/ml (<300)
[2022-01-01 15:36] LABS: Opiate Screen,Urine Positive ng/ml (<300); Phencyclidine Screen,Urine Negative ng/ml (<25)
== END ==
PROVIDERS: PCP Emergency Medicine; Visit Provider Emergency Medicine
DX: Z79.899 Other long term (current) drug therapy (principal)
CPT/HCPCS: 80305

== ENCOUNTER → 2022-02-28 14:21 | Outpatient (CLI) | payer BC, SELFPAY ==
[2022-02-28 14:58] LABS: Amphetamine/Metha Screen,Urine Positive ng/ml (<1000)
[2022-02-28 14:59] LABS: Barbiturates Screen,Urine Negative ng/ml (<200); Benzodiazepines Screen,Urine Positive ng/ml (<200)
[2022-02-28 15:00] LABS: Cannabinoid Screen,Urine Negative ng/ml (<50); Cocaine Screen,Urine Negative ng/ml (<300)
[2022-02-28 15:01] LABS: Methadone Screen,Urine Negative ng/ml (<300)
[2022-02-28 15:02] LABS: Opiate Screen,Urine Positive ng/ml (<300); Phencyclidine Screen,Urine Negative ng/ml (<25)
== END ==
PROVIDERS: PCP Emergency Medicine; Visit Provider Emergency Medicine
DX: Z79.899 Other long term (current) drug therapy (principal)
CPT/HCPCS: 80305

== ENCOUNTER 2022-07-14 20:26 | Emergency (ER) | payer BC, SELFPAY ==
[2022-07-14 20:45] VITALS: BP 164/98; PULSE 89; RESP 16; TEMP 37; O2SAT 98; BMI 25.0
[2022-07-14 21:00] VITALS: BP 131/79; PULSE 81; O2SAT 97
--- NOTE | 2022-07-14 21:05 | XR_ITS ---
PROCEDURE INFORMATION: Exam: XR Pelvis Exam date and time: 07/14/2022 9:54 PM Age: 56 years old Clinical indication: Injury or trauma; Fall; Additional info: Pain TECHNIQUE: Imaging protocol: Radiologic exam of the pelvis. Views: 1 or 2 view. COMPARISON: CR XR PELVIS 1-2V 10/11/2020 10:02 PM FINDINGS: Bones/joints: The sacrum is partially obscured by overlying stool and/or bowel air. No evidence of acute fracture. Soft tissues: Unremarkable. IMPRESSION: No evidence of acute fracture. If symptoms persist, recommend repeat radiograph in 5-7 days.
--- NOTE | 2022-07-14 21:09 | CT_ITS ---
PROCEDURE INFORMATION: Exam: CT Lumbar Spine Without Contrast Exam date and time: 07/14/2022 9:37 PM Age: 56 years old Clinical indication: Injury or trauma; Fall; Additional info: Fall, pain TECHNIQUE: Imaging protocol: Computed tomography of the lumbar spine without contrast. Radiation optimization: All CT scans at this facility use at least one of these dose optimization techniques: automated exposure control; mA and/or kV adjustment per patient size (includes targeted exams where dose is matched to clinical indication); or iterative reconstruction. REPORTING DATA: Count of CT and Cardiac NM exams in prior 12 months: This patient has received [address] and 0 known cardiac nuclear medicine studies in the 12 months prior to the current study. COMPARISON: FINDINGS: Bones/joints: Visualized vertebral body heights are preserved. Vasculature: Atherosclerotic calcifications. Soft tissues: Unremarkable. IMPRESSION: Visualized vertebral body heights are preserved. If symptoms persist consider further evaluation with MR.
--- NOTE | 2022-07-14 21:09 | CT_ITS ---
PROCEDURE INFORMATION: Exam: CT Thoracic Spine Without Contrast Exam date and time: 07/14/2022 9:34 PM Age: 56 years old Clinical indication: Injury or trauma; Fall; Additional info: Fall, pain TECHNIQUE: Imaging protocol: Computed tomography of the thoracic spine without contrast. Radiation optimization: All CT scans at this facility use at least one of these dose optimization techniques: automated exposure control; mA and/or kV adjustment per patient size (includes targeted exams where dose is matched to clinical indication); or iterative reconstruction. REPORTING DATA: Count of CT and Cardiac NM exams in prior 12 months: This patient has received [address] and 0 known cardiac nuclear medicine studies in the 12 months prior to the current study. COMPARISON: [facility] CT thoracic spine wo con 07/08/2018 9:23 PM FINDINGS: Bones/joints: Visualized vertebral body heights are preserved. Soft tissues: Unremarkable. Vasculature: Atherosclerotic calcifications. IMPRESSION: Visualized vertebral body heights are preserved. If symptoms persist consider further evaluation with MR.
--- NOTE | 2022-07-14 21:47 | HMH.EDBACK ---
Discharge Plan Disposition Patient Disposition: Home, Self-Care Chief Complaint: Back Pain/Injury Prescriptions Prescriptions: No Action promethazine 25 mg tablet 25 mg PO TID PRN (Reason: nausea and vomiting) Qty: 30 1RF diazepam [Valium] 5 mg tablet 5 mg PO QHS Qty: 30 1RF gabapentin 600 mg tablet 600 mg PO QID Qty: 120 1RF dextroamphetamine-amphetamine [Adderall] 10 mg tablet 10 mg PO BID Qty: 60 0RF Rx Instructions: administer doses at least 4-6 hours apart hydrocodone-acetaminophen 10-325 mg tablet 1 tab PO QID Qty: 120 0RF acyclovir 200 mg capsule 200 mg PO DAILY Qty: 90 0RF lisinopril 40 mg tablet See Rx Instructions .Route .COMPLEX Qty: 90 3RF Rx Instructions: TAKE 1 TABLET BY MOUTH DAILY FOR HYPERTENSION metoprolol succinate [Toprol XL] 25 mg tablet extended release 24 hr 25 mg PO DAILY Qty: 90 3RF ondansetron HCl 4 mg tablet 4 mg PO Q8H Qty: 40 2RF clopidogrel 75 mg tablet See Rx Instructions .ROUTE .COMPLEX Qty: 30 0RF Dose Instruction: TAKE ONE TABLET BY MOUTH ONCE A DAY Rx Instructions: TAKE ONE TABLET BY MOUTH ONCE A DAY ropinirole 2 mg tablet See Rx Instructions .ROUTE .COMPLEX Qty: 30 3RF Dose Instruction: TAKE ONE TABLET BY MOUTH ONCE A DAY Rx Instructions: TAKE ONE TABLET BY MOUTH ONCE A DAY metoclopramide HCl 10 mg tablet See Rx Instructions .ROUTE .COMPLEX Qty: 120 3RF Dose Instruction: TAKE ONE TABLET BY MOUTH FOUR TIMES A DAY Rx Instructions: TAKE ONE TABLET BY MOUTH FOUR TIMES A DAY escitalopram oxalate 10 mg tablet See Rx Instructions .ROUTE .COMPLEX Qty: 30 2RF Dose Instruction: TAKE ONE TABLET BY MOUTH ONCE A DAY Rx Instructions: TAKE ONE TABLET BY MOUTH ONCE A DAY furosemide 20 mg tablet See Rx Instructions .ROUTE .COMPLEX Qty: 15 2RF Dose Instruction: TAKE ONE TABLET BY MOUTH EVERY OTHER DAY Rx Instructions: TAKE ONE TABLET BY MOUTH EVERY OTHER DAY amlodipine 10 mg tablet See Rx Instructions .ROUTE .COMPLEX Qty: 30 2RF Dose Instruction: TAKE 1/2 TABLET BY MOUTH 2 TIMES A DAY Rx Instructions: TAKE 1/2 TABLET BY MOUTH 2 TIMES A DAY atorvastatin 80 mg tablet See Rx Instructions .ROUTE .COMPLEX Qty: 30 2RF Dose Instruction: TAKE ONE TABLET BY MOUTH AT BEDTIME Rx Instructions: TAKE ONE TABLET BY MOUTH AT BEDTIME Referrals Follow up/Referrals: Cristian Olvera MD [Primary Care Provider] - See instructions Clinical Impressions Clinical Impression: Lumbar back pain, Fall, Lumbar radiculopathy Instructions Patient Instructions: DI for Low Back Pain Discharge ED Provider: May (ED)Cristian Back Pain HPI General Chief Complaint: Back Pain/Injury Stated Complaint: AO 07/07 lower back pain Time Seen by Provider: 07/14/22 21:10 Mode of Arrival: Ambulatory Source of Information: Patient, Spouse and Medical Record Limitations: No Limitations Description of Symptoms (Recalled from ER Triage Doc. by RN): Patient reports while getting out of the shower last week, slipped and fell landing on buttocks. Patient reports severe pain to lower back that radiates across and making it hard to walk. States pain medications are not helping. History of Present Illness HPI Narrative: pt with hx of back pain and had recent injury and has ongoing pain and presents for follow up - worse with mov and no cauda equina sx Complaint: back pain and fall Onset (ago): day(s) Duration: intermittent Similar Symptoms Previously: Yes Location: lumbar spine, thoracic spine and sacrum Severity: moderate Radiation: buttocks Exacerbating factors: movement and walking Context: fall Associated symptoms: denies other symptoms Related Data Previous Rx's Medication Instructions Recorded acyclovir 200 mg capsule 200 mg PO DAILY #90 caps 06/13/21 lisinopril 40 mg tablet See Rx Instructions .Route 11/01/21 .COMPLEX b
[2022-07-14 22:51] VITALS: BP 171/99; PULSE 77; O2SAT 95
[2022-07-14 23:30] VITALS: BP 153/91; PULSE 75; O2SAT 96
[2022-07-15 00:01] VITALS: BP 124/63; PULSE 69; RESP 17; TEMP 36.6; O2SAT 97
== END 2022-07-15 00:02 | disposition home or self-care (01) ==
PROVIDERS: Emergency Provider Emergency Medicine; PCP Emergency Medicine
DX: M54.16 Radiculopathy, lumbar region (principal)
CPT/HCPCS: 72128; 72131; 72170; 96374; 96375; 99284; J2405

== ENCOUNTER 2022-09-10 19:58 | Emergency (ER) | payer BC, SELFPAY ==
[2022-09-10 20:00] VITALS: BP 166/94; PULSE 71; RESP 20; TEMP 36.8; O2SAT 99; BMI 32.0
--- NOTE | 2022-09-10 20:13 | XR_ITS ---
PROCEDURE INFORMATION: Exam: XR Pelvis Exam date and time: 09/10/2022 8:14 PM Age: 57 years old Clinical indication: Pain and injury or trauma; Fall; Hip pain; Bilateral; Additional info: Fall, hip pain, low back pain TECHNIQUE: Imaging protocol: Radiologic exam of the pelvis. Views: 1 or 2 view. COMPARISON: CR XR PELVIS 1-2V 07/14/2022 9:54 PM FINDINGS: Bones/joints: Moderate degenerative changes of both hips and sacroiliac joints. Bony density normal. Cortices intact. Soft tissues: Unremarkable. IMPRESSION: Degenerative changes without acute radiographic findings identified.
--- NOTE | 2022-09-10 20:18 | XR_ITS ---
PROCEDURE INFORMATION: Exam: XR Lumbosacral Spine Exam date and time: 09/10/2022 8:14 PM Age: 57 years old Clinical indication: Pain and injury or trauma; Fall; Low back pain; Additional info: Fall, pain TECHNIQUE: Imaging protocol: Radiologic exam of the lumbosacral spine. Views: 2 or 3 views. COMPARISON: CT LUMBAR SPINE WO CON 07/14/2022 9:37 PM FINDINGS: Bones/joints: Multilevel degenerative disc and joint space changes most pronounced at L5/S1. Vertebral body heights grossly preserved. Cortices intact. No acute fracture. Normal alignment. Degenerative changes of both sacroiliac joints and visualized hips. Soft tissues: Unremarkable. Gastrointestinal tract: Nonobstructive bowel gas pattern. Moderate colonic stool burden. IMPRESSION: No acute findings. Degenerative changes.
--- NOTE | 2022-09-10 20:20 | PC.NURSE ---
Dr Olvera at bedside
--- NOTE | 2022-09-10 20:23 | HMH.EDBACK ---
Discharge Plan Disposition Patient Disposition: Home, Self-Care Chief Complaint: Back Pain/Injury Prescriptions Prescriptions: No Action promethazine 25 mg tablet 25 mg PO TID PRN (Reason: nausea and vomiting) Qty: 30 1RF lisinopril 40 mg tablet See Rx Instructions .Route .COMPLEX Qty: 90 3RF Rx Instructions: TAKE 1 TABLET BY MOUTH DAILY FOR HYPERTENSION gabapentin 600 mg tablet 600 mg PO QID Qty: 120 1RF atorvastatin 80 mg tablet See Rx Instructions .ROUTE .COMPLEX Rx Instructions: TAKE ONE TABLET BY MOUTH AT BEDTIME ondansetron HCl 4 mg tablet 4 mg PO Q8H dextroamphetamine-amphetamine [Adderall] 10 mg tablet 10 mg PO BID Rx Instructions: administer doses at least 4-6 hours apart clopidogrel 75 mg tablet See Rx Instructions .ROUTE .COMPLEX Rx Instructions: TAKE ONE TABLET BY MOUTH ONCE A DAY hydrocodone-acetaminophen 10-325 mg tablet 1 tab PO QID amlodipine 10 mg tablet See Rx Instructions .ROUTE .COMPLEX Rx Instructions: TAKE 1/2 TABLET BY MOUTH 2 TIMES A DAY ropinirole 2 mg tablet See Rx Instructions .ROUTE .COMPLEX Rx Instructions: TAKE ONE TABLET BY MOUTH ONCE A DAY acyclovir 200 mg capsule 200 mg PO DAILY furosemide 20 mg tablet See Rx Instructions .ROUTE .COMPLEX Rx Instructions: TAKE ONE TABLET BY MOUTH EVERY OTHER DAY metoprolol succinate [Toprol XL] 25 mg tablet extended release 24 hr 25 mg PO DAILY diazepam [Valium] 5 mg tablet 5 mg PO QHS metoclopramide HCl 10 mg tablet See Rx Instructions .ROUTE .COMPLEX Rx Instructions: TAKE ONE TABLET BY MOUTH FOUR TIMES A DAY escitalopram oxalate 10 mg tablet See Rx Instructions .ROUTE .COMPLEX Rx Instructions: TAKE ONE TABLET BY MOUTH ONCE A DAY Referrals Follow up/Referrals: Cristian Olvera MD [Primary Care Provider] - See instructions Clinical Impressions Clinical Impression: Sprain lumbar region, Fall Instructions Patient Instructions: DI for Low Back Pain Discharge ED Provider: May (ED)Cristian Back Pain HPI General Chief Complaint: Back Pain/Injury Stated Complaint: AO 09/06 fell injured back Time Seen by Provider: 09/10/22 20:05 Mode of Arrival: Ambulatory Source of Information: Patient and Medical Record Limitations: No Limitations Description of Symptoms (Recalled from ER Triage Doc. by RN): Pt states on she fell while trying to get out of her tub. Complaints of lower back pain 01/22. Pt denies any LOC. No health hx other than a stroke 3 yrs ago that left her with left leg weakness that contributed to her falling. History of Present Illness HPI Narrative: slip injury a few days ago with ongoing back pain - hx of back pain - no loc and no abd pain Complaint: back injury Onset (ago): day(s) Duration: constant Location: lumbar spine Severity: moderate Radiation: left leg Related Data Home Medications Medication Instructions Recorded Confirmed acyclovir 200 mg capsule 200 mg PO DAILY CAD 09/10/22 09/10/22 amlodipine 10 mg tablet See Rx Instructions .Route 09/10/22 09/10/22 .COMPLEX Heart disease atorvastatin 80 mg tablet See Rx Instructions .Route 09/10/22 09/10/22 .COMPLEX Cholesterol clopidogrel 75 mg tablet See Rx Instructions .Route 09/10/22 09/10/22 .COMPLEX Heart disease dextroamphetamine-amphetamine 10 10 mg PO BID Anxiety 09/10/22 09/10/22 mg tablet (Adderall) diazepam 5 mg tablet (Valium) 5 mg PO QHS Anxiety 09/10/22 09/10/22 escitalopram oxalate 10 mg tablet See Rx Instructions .Route 09/10/22 09/10/22 .COMPLEX Indigestion furosemide 20 mg tablet See Rx Instructions .Route 09/10/22 09/10/22 .COMPLEX Fluid hydrocodone 10 mg-acetaminophen 1 tab PO QID Pain 09/10/22 09/10/22 325 mg tablet metoclopramide HCl 10 mg tablet See Rx Instructions .Route 09/10/22 09/10/22 .COMPLEX High blood pressure metoprolol succinate 25 mg 25
[2022-09-10 21:27] VITALS: BP 154/84; PULSE 80; RESP 17; TEMP 36.7; O2SAT 96
== END 2022-09-10 21:33 | disposition home or self-care (01) ==
PROVIDERS: Emergency Provider Emergency Medicine; PCP Emergency Medicine
DX: S33.5XXA Sprain of ligaments of lumbar spine, initial encounter (principal); W19.XXXA Unspecified fall, initial encounter; I10 Essential (primary) hypertension
CPT/HCPCS: 72100; 72170; 96372; 99284

== ENCOUNTER → 2022-10-09 13:00 | Outpatient (CLI) | payer BC, SELFPAY ==
[2022-10-09 18:38] LABS: Basophils % 0.5 % (0.1-2.0); Eosinophils # 0.1 K/mm3 (0.0-0.4); Eosinophils % 1.9 % (0.1-12.0); Hematocrit 48.2 % (37.0-47.0); Hemoglobin 14.9 g/dL (12.2-16.2); Lymphocytes % 29.4 % (10-50); Mean Corpuscular HGB Conc 30.8 g/dL (31.8-35.4); Mean Corpuscular Hemoglobin 30.7 pg (27.0-31.2); Mean Corpuscular Volume 99.5 fl (81-99); Mean Platelet Volume 8.9 fl (7.4-10.4); Monocytes # 0.5 K/mm3 (0.1-1.0); Monocytes % 6.7 % (1.7-9.3); Neutrophils # 4.2 K/mm3 (1.8-7.8); Neutrophils % 61.5 % (37.0-80.0); Platelet Count 264 K/mm3 (142-424); Red Blood Count 4.84 M/mm3 (4.20-5.40); Red Cell Distribution Width 13.3 % (11.5-17.5); White Blood Count 6.8 K/mm3 (4.8-10.8)
[2022-10-09 18:45] LABS: Alanine Aminotransferase 32 U/L (12-78); Albumin Level 4.3 g/dl (3.5-5.0); Alkaline Phosphatase 93 U/L (38-126); Anion Gap 16.4 mEq/L (5-15); Aspartate Amino Transferase 36 U/L (14-36); Bilirubin,Total 0.3 mg/dl (0.2-1.3); Blood Urea Nitrogen 15 mg/dl (7-17); Calcium 9.3 mg/dl (8.4-10.2); Carbon Dioxide 29 mmol/L (22.0-30.0); Chloride 101 mmol/L (98-107); Chol/HDL Ratio 2.2 (1-3.5); Cholesterol 140 mg/dl (140-200); Estimated Glomerular Filt Rate 57 ml/min (>60); GFR (African American) 69 ML/MIN (>60); Globulin 2.1 g/dL (1.3-3.2); Glucose 117 mg/dl (74-100); HDL Cholesterol 63 mg/dl (40-60); Potassium 4.4 mmoL/L (3.5-5.1); Sodium 142 mmol/L (136-145); Total Protein,Serum 6.4 g/dl (6.3-8.2); Triglycerides 153 mg/dl (30-150); VLDL Cholesterol 31 mg/dL (0-40)
[2022-10-09 18:56] LABS: Direct LDL Cholesterol 58.24 mg/dL (100-129)
[2022-10-09 19:01] LABS: 25-OH Vitamin D, Total 32.1 ng/mL (30-100)
[2022-10-09 19:03] LABS: T4 (Thyroxine) 7.7 ug/dl (5.53-11.0)
[2022-10-09 20:31] LABS: Phencyclidine Screen,Urine Negative ng/ml (<25)
[2022-10-09 20:38] LABS: Amphetamine/Metha Screen,Urine Positive ng/ml (<1000)
[2022-10-09 20:40] LABS: Barbiturates Screen,Urine Negative ng/ml (<200); Cannabinoid Screen,Urine Negative ng/ml (<50)
[2022-10-09 20:41] LABS: Benzodiazepines Screen,Urine Positive ng/ml (<200)
[2022-10-09 20:42] LABS: Cocaine Screen,Urine Negative ng/ml (<300); Methadone Screen,Urine Positive ng/ml (<300)
[2022-10-09 20:43] LABS: Opiate Screen,Urine Positive ng/ml (<300)
== END ==
PROVIDERS: PCP Emergency Medicine; Visit Provider Emergency Medicine
DX: I10 Essential (primary) hypertension (principal); M54.50 Low back pain, unspecified; F90.9 Attention-deficit hyperactivity disorder, unspecified type; Z79.899 Other long term (current) drug therapy
CPT/HCPCS: 80053; 80061; 80305; 82306; 84436; 84443; 85025

== ENCOUNTER → 2023-01-30 17:09 | Outpatient (CLI) | payer BC, SELFPAY ==
[2023-01-30 15:14] LABS: Amphetamine/Metha Screen,Urine Negative ng/ml (<1000)
[2023-01-30 15:15] LABS: Barbiturates Screen,Urine Negative ng/ml (<200); Benzodiazepines Screen,Urine Negative ng/ml (<200)
[2023-01-30 15:16] LABS: Cannabinoid Screen,Urine Negative ng/ml (<50)
[2023-01-30 15:21] LABS: Methadone Screen,Urine Negative ng/ml (<300)
[2023-01-30 15:22] LABS: Cocaine Screen,Urine Negative ng/ml (<300); Phencyclidine Screen,Urine Negative ng/ml (<25)
[2023-01-30 15:23] LABS: Opiate Screen,Urine Positive ng/ml (<300)
== END ==
PROVIDERS: PCP Emergency Medicine; Visit Provider Emergency Medicine
DX: G89.29 Other chronic pain (principal)
CPT/HCPCS: 80305

== ENCOUNTER → 2023-03-05 07:56 | Outpatient (CLI) | payer BC, SELFPAY ==
--- NOTE | 2023-03-05 07:57 | MR_ITS ---
FINAL REPORT CLINICAL HISTORY: hx CVA, recent episode confusion/slurred speech COMPARISON: report available from MRI head dated 12/13/2020 FINDINGS: Multiplanar MR imaging of the brain was performed without and with contrast. There is a small focus of abnormal signal in the right anterior aspect of the rik, by report present on the prior MR of 2020, most compatible with a chronic infarct. No new areas of abnormal parenchymal signal or enhancement are identified. There is no evidence of intracranial hemorrhage or mass. No abnormal extra-axial fluid collection is seen. The ventricular size is within normal limits. There is no evidence of shift of the midline structures. The posterior fossa and brainstem have an unremarkable appearance. No area of abnormal restricted diffusion is identified. No abnormal contrast enhancement is seen. Normal major vessel vascular flow voids are noted. IMPRESSION: No acute intracranial abnormality seen. Chronic infarct right anterior rik, by report also present on the MRI dated 12/13/2020. Reviewed, Interpreted and Dictated by Jostin Dupree III, MD Transcribed by Pamela Mooney Authenticated and [facility]
== END ==
PROVIDERS: PCP Emergency Medicine; Visit Provider Specialist
DX: G93.40 Encephalopathy, unspecified (principal); R41.0 Disorientation, unspecified; R47.81 Slurred speech; Z86.73 Personal history of transient ischemic attack (TIA), and cerebral infarction without residual deficits
CPT/HCPCS: 70553; A9576

== ENCOUNTER → 2023-03-08 09:39 | Outpatient (CLI) | payer BC, SELFPAY | PROVIDERS: PCP Emergency Medicine; Visit Provider Specialist | DX: G93.40 Encephalopathy, unspecified (principal); R41.0 Disorientation, unspecified; R47.81 Slurred speech; Z86.73 Personal history of transient ischemic attack (TIA), and cerebral infarction without residual deficits | CPT/HCPCS: 95813; 95816 ==

== ENCOUNTER 2023-04-17 07:05 | Outpatient (CLI) | payer SELFPAY ==
[2023-04-17 20:12] LABS: Chloride 105 mmol/L (98-107)
[2023-04-17 20:13] LABS: Potassium 4.5 mmoL/L (3.5-5.1); Sodium 141 mmol/L (136-145)
[2023-04-17 20:15] LABS: Alanine Aminotransferase 28 U/L (12-78); Aspartate Amino Transferase 33 U/L (14-36); Blood Urea Nitrogen 17 mg/dl (7-17); Estimated Glomerular Filt Rate 57 ml/min (>60); GFR (African American) 69 ML/MIN (>60)
[2023-04-17 20:16] LABS: Albumin Level 4.1 g/dl (3.5-5.0); Albumin/Globulin Ratio 1.7 (1.1-1.8); Alkaline Phosphatase 98 U/L (38-126); Anion Gap 11.5 mEq/L (5-15); Bilirubin,Total 0.4 mg/dl (0.2-1.3); Calcium 8.6 mg/dl (8.4-10.2); Carbon Dioxide 29 mmol/L (22.0-30.0); Globulin 2.4 g/dL (1.3-3.2); Glucose 78 mg/dl (74-100); Total Protein,Serum 6.5 g/dl (6.3-8.2)
[2023-04-17 20:49] LABS: 25-OH Vitamin D, Total 33.3 ng/mL (30-100)
[2023-04-17 22:07] LABS: Cannabinoid Screen,Urine Negative ng/ml (<50); Cocaine Screen,Urine Negative ng/ml (<300)
[2023-04-17 22:08] LABS: Opiate Screen,Urine Positive ng/ml (<300)
[2023-04-17 23:24] LABS: Amphetamine/Metha Screen,Urine Positive ng/ml (<1000); Microalbumin < 30.000 mg/L (0-16.7)
[2023-04-17 23:25] LABS: Phencyclidine Screen,Urine Negative ng/ml (<25)
[2023-04-17 23:39] LABS: Barbiturates Screen,Urine Negative ng/ml (<200); Benzodiazepines Screen,Urine Positive ng/ml (<200); Methadone Screen,Urine Negative ng/ml (<300)
== END 2023-04-17 23:59 ==
PROVIDERS: PCP Internal Medicine; Visit Provider Internal Medicine
DX: R53.83 Other fatigue (principal); I10 Essential (primary) hypertension; M54.50 Low back pain, unspecified; Z86.73 Personal history of transient ischemic attack (TIA), and cerebral infarction without residual deficits; Z72.0 Tobacco use; Z79.899 Other long term (current) drug therapy
CPT/HCPCS: 80053; 80307; 82043; 82306; 83036

== ENCOUNTER 2023-05-15 20:45 | Outpatient (CLI) | payer BC, SELFPAY ==
[2023-05-15 19:00] LABS: Alanine Aminotransferase 23 U/L (12-78); Albumin/Globulin Ratio 1.9 (1.1-1.8); Alkaline Phosphatase 79 U/L (38-126); Anion Gap 10.6 mEq/L (5-15); Aspartate Amino Transferase 26 U/L (14-36); Bilirubin,Total 0.3 mg/dl (0.2-1.3); Blood Urea Nitrogen 15 mg/dl (7-17); Calcium 9.2 mg/dl (8.4-10.2); Carbon Dioxide 30 mmol/L (22.0-30.0); Chloride 107 mmol/L (98-107); Estimated Glomerular Filt Rate 64 ml/min (>60); GFR (African American) 78 ML/MIN (>60); Globulin 2.1 g/dL (1.3-3.2); Glucose 83 mg/dl (74-100); Potassium 4.6 mmoL/L (3.5-5.1); Sodium 143 mmol/L (136-145); Total Protein,Serum 6.1 g/dl (6.3-8.2)
[2023-05-15 19:32] LABS: Thyroid Stimulating Hormone 2.46 uIU/mL (0.465-4.68)
== END 2023-05-15 23:59 ==
LOC: LAB.DROPOF 20:46
PROVIDERS: PCP Internal Medicine; Visit Provider Internal Medicine
DX: R53.83 Other fatigue (principal)
CPT/HCPCS: 80053; 84443

== ENCOUNTER 2023-05-29 16:41 | Outpatient (CLI) | payer BC, SELFPAY ==
--- NOTE | 2023-05-29 16:48 | MM_ITS ---
PROCEDURE INFORMATION: Exam: Bilateral Screening 3D Mammography Exam date and time: 05/29/2023 4:41 PM Age: 57 years old Clinical indication: Screening examination TECHNIQUE: Imaging protocol: Bilateral Screening tomosynthesis and 2D mammography including computer-aided detection (CAD) when performed. COMPARISON: [facility] DIG MAMM-SCREEN AMANDA 09/15/2015 3:45 PM FINDINGS: MAMMOGRAPHY: Breast composition: The breasts are heterogeneously dense, which may obscure small masses. Mass: None. Architectural distortion: None. Calcifications: No suspicious calcifications. Asymmetric density: None. Skin thickening: None. Axillary adenopathy: None. IMPRESSION: No mammographic evidence of malignancy. Annual screening is recommended unless otherwise clinically indicated. ASSESSMENT: BI-RADS Category 1: Negative
== END 2023-05-29 23:59 ==
PROVIDERS: PCP Internal Medicine; Visit Provider Internal Medicine
DX: Z12.31 Encounter for screening mammogram for malignant neoplasm of breast (principal)
CPT/HCPCS: 77063; 77067

== ENCOUNTER 2023-07-22 05:58 | Emergency (ER) | payer BC, SELFPAY ==
[2023-07-22] VITALS (15 sets, daily range): BP systolic 101–135; BP diastolic 55–91; PULSE 90–114; RESP 12–18; TEMP 36.6–36.7; O2SAT 94–99; BMI 26.6
--- NOTE | 2023-07-22 06:08 | ECG_ITS ---
APPROVED REPORT Exam: Resting ECG HR:107 bpm ECG Measurements Heart Rate 107 AXES [place] 142 P 53 QRSd 91 QRS 46 QT 337 T 64 QTc 400 Conclusion SINUS TACHYCARDIA LOW QRS VOLTAGE IN PRECORDIAL LEADS [QRS DEFLECTION < 1.0 mV IN CHEST LEADS] NONSPECIFIC ST & T-WAVE ABNORMALITY ABNORMAL RHYTHM ECG UNCONFIRMED REPORT Electronically signed by : Reed Lerma, 07/22/2023 17:37:32
--- NOTE | 2023-07-22 06:12 | CT_ITS ---
FINAL REPORT CLINICAL HISTORY: AMS, no focal deficits COMPARISON: None FINDINGS: Axial images of the head were obtained without contrast. Coronal and sagittal reformatted images were also obtained.This study was performed with techniques to keep radiation doses as low as reasonably achievable (ALARA). Individualized dose reduction techniques using automated exposure control or adjustment of mA and/or kV according to the patient's size were employed. There is motion on some images which slightly limits overall image quality. There is no evidence of intracranial hemorrhage or mass. The ventricular size is within normal limits. There is no evidence of shift of the midline structures. No abnormal extra axial fluid collection is identified. No skull abnormality is seen on the bone window images. IMPRESSION: No acute intracranial abnormality. Reviewed, Interpreted and Dictated by Jostin Dupree III, MD Transcribed by Pamela Mooney Authenticated and [facility]
--- NOTE | 2023-07-22 06:12 | CT_ITS ---
FINAL REPORT CLINICAL HISTORY: hypoxia, tachycardia, AMS COMPARISON: None FINDINGS: Thin section axial CT images of the chest were obtained with contrast. 3D reformatted images were also obtained. This study was performed with techniques to keep radiation doses as low as reasonably achievable (ALARA). Individualized dose reduction techniques using automated exposure control or adjustment of mA and/or kV according to the patient's size were employed. There is no evidence of pulmonary embolism. There is no evidence of thoracic aortic aneurysm or dissection. There are several thyroid nodules present, the largest in the left lobe of the thyroid measuring 10 mm in size. There is no evidence of mediastinal or hilar mass or adenopathy. There is no evidence of pulmonary mass or nodule. Mild bibasilar atelectasis is present. No localized inflammatory process is seen within the lungs. IMPRESSION: No evidence of pulmonary embolism or aortic dissection. Several thyroid nodules are present, as described above. Suggest thyroid ultrasound for further evaluation as clinically indicated. Reviewed, Interpreted and Dictated by Jostin Dupree III, MD Transcribed by Pamela Mooney Authenticated and [facility]
--- NOTE | 2023-07-22 06:12 | CT_ITS ---
FINAL REPORT CLINICAL HISTORY: abd pain, diarrhea, AMS COMPARISON: None FINDINGS: CT OF THE ABDOMEN AND PELVIS WITH CONTRAST Axial CT images of the abdomen and pelvis were obtained after the administration of IV contrast. Coronal and sagittal reformatted images were also obtained and reviewed. This study was performed with techniques to keep radiation doses as low as reasonably achievable (ALARA). Individualized dose reduction techniques using automated exposure control or adjustment of mA and/or kV according to the patient's size were employed. Abdomen: Mild bibasilar atelectasis is present.. The heart is normal in size. The liver has an unremarkable appearance, without evidence of mass or biliary ductal dilatation. There is mild nonspecific gallbladder wall thickening, as well as nonspecific extrahepatic biliary ductal dilatation. The spleen is unremarkable. No adrenal mass is present. The pancreas has an unremarkable appearance. The kidneys are normal, without evidence of mass or hydronephrosis. The aorta is normal in caliber. There is no free fluid or adenopathy. No mass or abnormal fluid collection is seen. Pelvis: The appendix is not well-visualized and may be surgically absent. The urinary bladder is unremarkable. There are multiple fluid-filled large and small bowel loops, with wall thickening of the descending and sigmoid portions of the colon worrisome for enteritis or colitis. There is no evidence of mass or adenopathy. There is no evidence of bowel obstruction. The uterus has been surgically resected. CTA abdomen and pelvis: Moderate vascular calcifications are present. The celiac axis is patent. 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 The FUENTES is patent. The iliac arteries are unremarkable in appearance. 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 The FUENTES is patent. Multiple fluid-filled large and small bowel loops, with wall thickening of the descending and sigmoid colon worrisome for enteritis/colitis. Given the stenosis of the SMA, bowel ischemia cannot be excluded. Mild nonspecific gallbladder wall thickening is present as well as nonspecific extrahepatic biliary ductal dilatation. MRCP may be helpful for further evaluation if clinically indicated. Reviewed, Interpreted and Dictated by Jostin Dupree III, MD Transcribed by Pamela Mooney Authenticated and [facility]
[2023-07-22 06:25] LABS: Chloride 110 mmol/L (98-107); Potassium 4.5 mmoL/L (3.5-5.1); Sodium 143 mmol/L (136-145)
[2023-07-22 06:27] LABS: Blood Urea Nitrogen 25 mg/dl (7-17); Creatinine Clearance Estimated 56 mL/min (50-200); Estimated Glomerular Filt Rate 42 ml/min (>60); GFR (African American) 51 ML/MIN (>60)
[2023-07-22 06:28] LABS: Alanine Aminotransferase 29 U/L (12-78); Albumin Level 4.5 g/dl (3.5-5.0); Albumin/Globulin Ratio 1.9 (1.1-1.8); Alkaline Phosphatase 98 U/L (38-126); Anion Gap 10.5 mEq/L (5-15); Aspartate Amino Transferase 34 U/L (14-36); Bilirubin,Total 0.4 mg/dl (0.2-1.3); Carbon Dioxide 27 mmol/L (22.0-30.0); Globulin 2.4 g/dL (1.3-3.2); Glucose 115 mg/dl (74-100); Salicylate 1.2 mg/dL (2.0-20.0); Total Protein,Serum 6.9 g/dl (6.3-8.2)
[2023-07-22 06:29] LABS: Lactic Acid 1.9 mmol/L (0.7-2.1)
[2023-07-22 06:31] LABS: Basophils # 0.1 K/mm3 (0-0.2); Basophils % 0.5 % (0.1-2.0); Eosinophils # 0.1 K/mm3 (0.0-0.4); Eosinophils % 0.5 % (0.1-12.0); Hematocrit 45.3 % (37.0-47.0); Hemoglobin 14.3 g/dL (12.2-16.2); Lymphocytes # 2.1 K/mm3 (0.7-4.5); Mean Corpuscular HGB Conc 31.6 g/dL (31.8-35.4); Mean Corpuscular Hemoglobin 31.5 pg (27.0-31.2); Mean Corpuscular Volume 99.8 fl (81-99); Mean Platelet Volume 7.9 fl (7.4-10.4); Monocytes # 0.9 K/mm3 (0.1-1.0); Monocytes % 7.5 % (1.7-9.3); Neutrophils # 8.4 K/mm3 (1.8-7.8); Neutrophils % 73.6 % (37.0-80.0); Platelet Count 257 K/mm3 (142-424); Red Blood Count 4.54 M/mm3 (4.20-5.40); Red Cell Distribution Width 14.3 % (11.5-17.5); White Blood Count 11.4 K/mm3 (4.8-10.8)
--- NOTE | 2023-07-22 06:33 | CT_ITS ---
FINAL REPORT CLINICAL HISTORY: AMS COMPARISON: None FINDINGS: Thin-section axial CT with IV contrast supplemented with multi planar reconstruction under CT angiogram protocol was performed of the head and neck. This study was performed technique to keep radiation doses as low as reasonably achievable, (ALARA). NASCET criteria was utilized during interpretation. CTA head: No aneurysm is seen. Major intracranial vessels are patent without significant stenosis. IMPRESSION: No evidence of significant stenosis, aneurysm or major branch occlusion. CTA neck: Aortic arch: Arch shows no significant narrowing. Great vessel origins are widely patent. Right carotid: Calcified plaque is present in the right carotid bifurcation. There is no evidence of significant stenosis in the cervical carotid artery. Left carotid: There is minimal calcified plaque present in the left carotid bifurcation. There is no evidence of significant stenosis in the cervical carotid artery. Vertebrals: Left vertebral artery is dominant. No significant stenosis is present. IMPRESSION: No evidence of significant stenosis or major branch occlusion. Reviewed, Interpreted and Dictated by Jostin Dupree III, MD Transcribed by Pamela Mooney Authenticated and [facility]
--- NOTE | 2023-07-22 06:34 | ED_ITS ---
Discharge Plan Disposition Patient Disposition: Left Against Medical Advice Condition: Fair Prescriptions Prescriptions: No Action acyclovir 200 mg capsule 200 mg PO DAILY Qty: 30 1RF escitalopram oxalate 10 mg tablet 20 mg PO DAILY 30 Days Qty: 60 3RF amlodipine 10 mg tablet 20 mg PO DAILY 30 Days Qty: 60 2RF atorvastatin 80 mg tablet 80 mg PO DAILY 90 Days Qty: 90 3RF lorazepam 0.5 mg tablet 0.5 mg PO DAILY PRN (Reason: panic attacks) 30 Days Qty: 6 1RF metoprolol succinate 25 mg tablet extended release 24 hr 25 mg PO DAILY 90 Days Qty: 90 3RF buspirone 15 mg tablet 15 mg PO BID 30 Days Qty: 60 2RF meloxicam 15 mg tablet 15 mg PO DAILY 30 Days Qty: 30 2RF dextroamphetamine-amphetamine 30 mg tablet 30 mg PO DAILY 30 Days Qty: 30 0RF gabapentin 800 mg tablet 800 mg PO TID 30 Days Qty: 90 1RF hydrocodone-acetaminophen 10-325 mg tablet 1 tab PO QID Qty: 120 0RF pramipexole 0.5 mg tablet 0.5 mg PO HS 30 Days Qty: 30 1RF zolpidem [Ambien] 10 mg tablet 10 mg PO HS 30 Days Qty: 30 1RF lisinopril 40 mg tablet See Rx Instructions .ROUTE .COMPLEX Qty: 30 1RF Dose Instruction: TAKE ONE TABLET BY MOUTH ONCE A DAY FOR HYPERTENSION Rx Instructions: TAKE ONE TABLET BY MOUTH ONCE A DAY FOR HYPERTENSION furosemide 20 mg tablet See Rx Instructions .ROUTE .COMPLEX Qty: 15 1RF Dose Instruction: TAKE ONE TABLET BY MOUTH EVERY OTHER DAY Rx Instructions: TAKE ONE TABLET BY MOUTH EVERY OTHER DAY metoclopramide HCl 10 mg tablet See Rx Instructions .ROUTE .COMPLEX Qty: 120 0RF Dose Instruction: TAKE ONE TABLET BY MOUTH FOUR TIMES A DAY Rx Instructions: TAKE ONE TABLET BY MOUTH FOUR TIMES A DAY clopidogrel 75 mg tablet See Rx Instructions .ROUTE .COMPLEX Rx Instructions: TAKE ONE TABLET BY MOUTH ONCE A DAY Referrals Follow up/Referrals: Provider,Referral, MD [Primary Care Provider] - See instructions Activity Restrictions/Add. Instructions Additional Instructions/Restrictions: You were seen in the ED today due to altered mental status. CT showed stenosis of your superior mesenteric artery which will require evaluation by vascular surgery. Please follow-up with your primary care provider as soon as possible. Return to the ED if any symptoms worsen or if new concerning symptoms arise. Thank you. Clinical Impressions Clinical Impression: Polypharmacy, Superior mesenteric artery stenosis Altered mental status Qualifiers: Altered mental status type: unspecified Qualified Code(s): R41.82 - Altered mental status, unspecified Diarrhea Qualifiers: Diarrhea type: unspecified type Qualified Code(s): R19.7 - Diarrhea, unspecified Instructions Patient Instructions: DI for Altered Mental Status Discharge ED Provider: Eddie Palomo General Adult HPI <Amara Knight DO - Last Filed: 07/22/23 06:54> General Chief complaint: Altered Mental Status Stated complaint: AMS Time Seen by Provider: 07/22/23 06:01 Mode of Arrival: EMS Source of Information: Spouse and EMS Limitations: Altered Mental Status Description of Symptoms (Recalled from ER Triage Doc. by RN): Pt to ED via [facility]. called 911 this morning for worsening AMS which started last night and worsened around 4-5am this morning. states that pt has a hx of stroke with left sided deficits. He also states that Dr Martínez has been changing pts medications recently. He is unsure which medications pt is on. reports that pt has had diarrhea X2 days and was not feeling well this morning so she took phenergren. reports pt possibly took nyquil last night as well. states while he was in the bathroom this morning, he heard a loud noise and walked in bedroom to find pt laying on the floor. reports no LOC.. also states that pt has been twitching her leg, and reaching for thingd that are not there. Pt is able to answer quetions appropriately, but has innapropriate behavior. Pt appears lethargic and sleepy. History of Present Illness HPI narrative: This patient is a 57-year-old female with a history of prior CVA, restless leg syndrome, prior spinal cord injury, history of C. difficile, tobacco use, anxiety, and COPD presenting to the emergency department with concern for altered mental status. Patient arrives by EMS who notes that they were called to the patient's home for altered mental status and unusual behavior. They note that the is on the way. arrives and states that the patient was doing fine all day yesterday aside from being tired from not sleeping well the night before secondary to her restless leg syndrome. She frequently has sleep issues. He notes that around 6:30 PM, she developed significant nausea, stomach cramping, and diarrhea. She had had some loose stools for about 2 days but had gotten worse last night. He notes that she seemed to be mentally fine and at her baseline whenever they went to bed around 8 PM last night, but she was not feeling well at all so she took a Phenergan. He notes that this did not help, so she took another Phenergan. She may have also possibly taken NyQuil. He notes that she tossed and turned all night and was unable to sleep, and he heard a thud in the bathroom and walked in to find her lying on the floor. No loss of consciousness noted. She also then had a fall out of bed. He notes no other obvious symptoms except for some twitching in her legs and that she is reaching for things that are not there. Patient does not contribute much to history, with unusual behavior and speech that does not make sense. She is asking her questions that will make sense like are you going to eat the bread? notes that patient's PCP, Dr. Martínez, has been making changes to her medications lately. On medical record review, patient is prescribed Ambien, pramipexole, Adderall, reglan, meloxicam, gabapentin, norco, ativan and escitalopram. Related Data Home Medications Medication Instructions Recorded Confirmed clopidogrel 75 mg tablet See Rx Instructions .Route 09/10/22 07/09/23 .COMPLEX Heart disease Previous Rx's Medication Instructions Recorded acyclovir 200 mg capsule 200 mg PO DAILY CAD #30 caps 12/04/22 escitalopram oxalate 10 mg tablet 20 mg (2 x 10 mg) PO DAILY 30 days 04/18/23 #60 tabs amlodipine 10 mg tablet 20 mg (2 x 10 mg) PO DAILY 30 days 05/16/23 #60 tabs atorvastatin 80 mg tablet 80 mg PO DAILY 90 days #90 tabs 05/16/23 lorazepam 0.5 mg tablet 0.5 mg PO DAILY PRN panic attacks 05/16/23 30 days #6 tabs metoprolol succinate 25 mg 25 mg PO DAILY 90 days #90 tabs 05/16/23 tablet,extended release 24 hr furosemide 20 mg tablet See Rx Instructions .Route 06/13/23 .COMPLEX #15 tabs lisinopril 40 mg tablet See Rx Instructions .Route 06/13/23 .COMPLEX #30 tabs buspirone 15 mg tablet 15 mg PO BID 30 days #60 tabs 07/09/23 dextroamphetamine-amphetamine 30 30 mg PO DAILY 30 days #30 tabs 07/09/23 mg tablet gabapentin 800 mg tablet 800 mg PO TID 30 days #90 tabs 07/09/23 hydrocodone 10 mg-acetaminophen 1 tab PO QID Pain #120 tabs 07/09/23 325 mg tablet meloxicam 15 mg tablet 15 mg PO DAILY 30 days #30 tabs 07/09/23 pramipexole 0.5 mg tablet 0.5 mg PO HS 30 days #30 tabs 07/09/23 zolpidem 10 mg tablet (Ambien) 10 mg PO HS 30 days #30 tabs 07/09/23 metoclopramide HCl 10 mg tablet See Rx Instructions .Route 07/10/23 .COMPLEX #120 tabs Allergies Allergy/AdvReac Type Severity Reaction Status Date / Time enoxaparin [From Lovenox] Allergy Severe Anaphylaxis Verified 07/09/23 10:08 Antihistamines - Alkylamine Allergy Unknown Verified 07/09/23 10:08 [ANTIHISTAMINES - ALKYLAMINE] ketorolac [From Toradol] Allergy Unknown Verified 07/09/23 10:08 [facility] <Amara Knight DO - Last Filed: 07/22/23 06:54> [facility] Disclaimer: The information contained in this section may have been updated after the patient was seen, as this information can be updated by other users. Medical History Daytime somnolence Snoring Abnormal electrocardiography Dyspnea Cerebrovascular accident Hypertension [employer] use of drug C. difficile diarrhea Diarrhea Lumbar facet arthropathy Spondylisthesis GERD (gastroesophageal reflux disease) COPD (chronic obstructive pulmonary disease) Lumbar disc disease with radiculopathy Chronic pain Tobacco use Lumbar foraminal stenosis Lumbar degenerative disc disease Anxiety Surgical History History of appendectomy H/O: hysterectomy Family History Other Cancer Social History Smoking Status: Former smoker tobacco type: e-cigarettes smoking status start date: pt does Vape smoking status stop date: 2020` alcohol intake: never substance use type: denies use current occupational status: disabled Travel in the last 8 weeks: None household members: family housing: house caffeine: Yes <Amara Knight DO - Last Filed: 07/22/23 06:54> ROS Obtained: Yes unobtainable due to mental status Physical Exam <Amara Knight DO - Last Filed: 07/22/23 06:54> General General appearance: obtunded Comment: Reaching for things that are not there, asking her questions that will make sense like are you going to eat the bread? Head Head exam: atraumatic and normocephalic Eye Eye exam: Present normal appearance, PERRL and EOMI ENT ENT exam: Present normal exam, normal oropharynx, mucous membranes moist and normal external ear exam Neck Neck exam: Present normal inspection, full ROM and trachea midline; Absent tenderness Chest Chest inspection: Present normal inspection and symmetric chest wall rise; Absent tenderness Respiratory Respiratory exam: Present normal lung sounds bilaterally; Absent respiratory distress, wheezes, stridor or accessory muscle use Cardiovascular Cardiovascular exam: Present normal rhythm and tachycardia Abdominal Exam Abdominal exam: Present soft; Absent distention, tenderness, guarding, rebound or rigidity Extremities Exam Extremities exam: Present full ROM, normal capillary refill and other (small bruise R lateral thigh); Absent tenderness or edema Back Exam Back exam: Present normal inspection and full ROM; Absent tenderness Neurological Exam Neurological exam: Present CN II-XII intact; Absent alert or motor sensory deficit Expanded Neurological Exam Cranial nerves: Normal: EOM function (II, III, IV, ), facial palsy (VII) and tongue deviation (XII) Coma scale eye opening: To voice Coma scale motor response: Obeys commands Coma scale verbal response: Inappropriate Coma scale total: 12 Comment: Patient is somnolent but arouses to voice and has an appropriate speech. She does follow commands and has no focal neurologic deficits with symmetric strength bilaterally. Skin Skin exam: Present warm and dry <Eddie Palomo MD - Last Filed: 07/22/23 15:15> Expanded Neurological Exam Coma scale total: 12 Medical Decision Making <Amara Knight DO - Last Filed: 07/22/23 06:54> Medical Records Medical records reviewed: Yes I reviewed the patient's medical records. Bhavik Inquiry Pt receiving controlled substance: No Vital Signs: 07/22/23 06:21 07/22/23 07:00 07/22/23 08:00 Temperature 97.8 F Temperature Source Oral Pulse Rate 100 H 96 H Pulse Rate [Apical] 114 H Respiratory Rate 16 14 12 Blood Pressure 124/78 130/73 Blood Pressure [Right Arm] 117/57 L Blood Pressure Mean Blood Pressure Mean [Right Arm] 77 Blood Pressure Source [Right Arm] Automatic Cuff Blood Pressure Position [Right Arm] Supine 02 Sat by Pulse Oximetry 96 96 94 L Oxygen Delivery Method Room Air 07/22/23 08:31 07/22/23 09:01 07/22/23 09:30 Temperature Temperature Source Pulse Rate 95 H 92 H 93 H Pulse Rate [Apical] Respiratory Rate 13 18 12 Blood Pressure 101/55 L 127/67 120/66 Blood Pressure [Right Arm] Blood Pressure Mean 83 77 76 Blood Pressure Mean [Right Arm] Blood Pressure Source [Right Arm] Blood Pressure Position [Right Arm] 02 Sat by Pulse Oximetry 95 96 96 Oxygen Delivery Method Room Air Room Air 07/22/23 10:00 07/22/23 10:30 07/22/23 11:01 Temperature Temperature Source Pulse Rate 90 94 H 97 H Pulse Rate [Apical] Respiratory Rate 12 12 13 Blood Pressure 113/74 135/69 115/75 Blood Pressure [Right Arm] Blood Pressure Mean 84 Blood Pressure Mean [Right Arm] Blood Pressure Source [Right Arm] Blood Pressure Position [Right Arm] 02 Sat by Pulse Oximetry 94 L 95 96 Oxygen Delivery Method Room Air Room Air Room Air 07/22/23 11:30 07/22/23 12:00 07/22/23 12:30 Temperature Temperature Source Pulse Rate 100 H 98 H 98 H Pulse Rate [Apical] Respiratory Rate 16 18 18 Blood Pressure 127/81 123/75 127/78 Blood Pressure [Right Arm] Blood Pressure Mean 91 92 Blood Pressure Mean [Right Arm] Blood Pressure Source [Right Arm] Blood Pressure Position [Right Arm] 02 Sat by Pulse Oximetry 97 Oxygen Delivery Method Room Air 07/22/23 13:00 07/22/23 13:30 Temperature Temperature Source Pulse Rate 102 H 100 H Pulse Rate [Apical] Respiratory Rate 18 18 Blood Pressure 128/91 H 128/75 Blood Pressure [Right Arm] Blood Pressure Mean 101 92 Blood Pressure Mean [Right Arm] Blood Pressure Source [Right Arm] Blood Pressure Position [Right Arm] 02 Sat by Pulse Oximetry Oxygen Delivery Method Lab Data Lab results reviewed: Yes I reviewed the patient's lab results. Lab Results 07/22/23 06:00: WBC 11.4 H, RBC 4.54, Hgb 14.3, Hct 45.3, MCV 99.8 H, MCH 31.5 H , MCHC 31.6 L, RDW 14.3, Plt Count 257, MPV 7.9, Neut % (Auto) 73.6, Lymph % (Auto) 18.0, [place] % (Auto) 7.5, Eos % (Auto) 0.5, Baso % (Auto) 0.5, Neut # (Auto) 8.4 H, Lymph # (Auto) 2.1, [place] # (Auto) 0.9, Eos # (Auto) 0.1, Baso # (Auto) 0.1, PT 10.1, INR 0.93, APTT 24.2, Sodium 143, Potassium 4.5, Chloride 110 H, Carbon Dioxide 27, Anion Gap 10.5, BUN 25 H, Creatinine 1.30 H, Estimated Creat Clear 56, Estimated GFR 42 L, Est GFR ( Amer) 51 L, Glucose 115 H, Lactate 1.9, Calcium 10.0, Total Bilirubin 0.4, AST 34, ALT 29, Alkaline Phosphatase 98, Troponin I < 0.01, NT-Pro-B Natriuret Pep 84.4, Total Protein 6.9, Albumin 4.5, Globulin 2.4, Albumin/Globulin Ratio 1.9 H, Lipase 66, S alicylates 1.2 L, Acetaminophen < 10 L, Plasma/Serum Alcohol < 10 07/22/23 06:12: VBG pH 7.35, VBG pCO2 44.6, VBG pO2 36.1, VBG HCO3 23.8, VBG Total CO2 25.2, VBG O2 Saturation 62.4, VBG Base Excess -1.8, VBG Lactic Acid 2.8 H 07/22/23 06:30: Ammonia < 9 L, SARS-CoV-2 (PCR) Not detected, Influenza A Untype (PCR) Not detected, Influenza Type B (PCR) Not detected 07/22/23 06:46: Urine Color Yellow, Urine Appearance Clear, Urine pH 6.0, Ur Specific [place] 1.015, Urine Protein Negative, Urine Glucose (UA) Negative, Urine Ketones Negative, Urine Blood Negative, Urine Nitrate Negative, Urine Bilirubin Negative, Urine Urobilinogen 0.2, Ur Leukocyte Esterase Negative, Urine WBC Occasional, Ur Squamous Epith Cells Occasional, Urine Bacteria Trace, Urine Opiates Screen Positive H, Urine Methadone Screen Negative, Ur Barbituates Screen Negative, Ur Phencyclidine Scrn Negative, Ur Amphetamines Screen Positive H, U Benzodiazepines Scrn Positive H, Urine Cocaine Screen Negative, U Marijuana (THC) Screen Negative 07/22/23 09:15: Lactate 2.2 H 07/22/23 11:00: Troponin I < 0.01 07/22/23 06:00 07/22/23 06:00 Orders (Tests/Meds): ED MEDICATIONS Discontinued Medications Generic Name Dose Route Start Last Admin Trade Name Freq PRN Reason Stop Dose Admin Lactated Ringer's 1,000 mls @ 999 mls/hr 07/22/23 06:12 07/22/23 06:51 Lactated Ringer's 1000 Ml Bag IV 07/22/23 07:12 999 mls/hr .Q1H1M ONE Administration Lactated Ringer's 1,000 mls @ 999 mls/hr 07/22/23 14:13 07/22/23 14:37 Lactated Ringer's 1000 Ml Bag IV 07/22/23 15:13 999 mls/hr .Q1H1M ONE Administration Iopamidol 200 ml 07/22/23 07:30 07/22/23 07:31 Iopamidol-370 (76%);100ml Bottle IV 07/22/23 07:31 200 ml ONCE ONE Administration Morphine Sulfate 4 mg 07/22/23 14:50 Morphine 4mg/Ml Syringe IV 07/22/23 14:51 ONCE ONE Sodium Chloride 100 ml 07/22/23 07:30 07/22/23 07:31 0.9 % Sodium Chloride 50 Ml Vial IV 07/22/23 07:31 100 ml ONCE ONE Administration Sodium Chloride 10 ml 07/22/23 07:30 07/22/23 07:31 Sodium Chloride 0.9% 10ml Syr (Rad Only) IV 07/22/23 07:31 10 ml ONCE ONE Administration ORDERS Category Date Time Status CT abdomen pelvis w con Stat Cat Scan 07/22/23 06:[address] angio chest PE protocol Stat Cat Scan 07/22/23 06:[address] angio head Stat Cat Scan 07/22/23 06:[address] angio neck Stat Cat Scan 07/22/23 06:[address] cervical spine wo con Stat Cat Scan 07/22/23 06:[address] head/brain wo con Stat Cat Scan 07/22/23 06:[address] lumbar spine wo con Stat Cat Scan 07/22/23 06:[address] thoracic spine wo con Stat Cat Scan 07/22/23 06:38 Completed Acetaminophen Stat Lab 07/22/23 06:00 Completed Activated Partial Thrombo Time Stat Lab 07/22/23 06:00 Completed Ammonia Stat Lab 07/22/23 06:30 Completed BNP [NT Pro Brain Natriuretic Pep.] Stat Lab 07/22/23 06:00 Completed Complete Blood Count Auto Diff Stat Lab 07/22/23 06:00 Completed Comprehensive Metabolic Panel Stat Lab 07/22/23 06:00 Completed Diarrhea 6-11 Panel, Cdiff PCR Stat Lab 07/22/23 07:10 Ordered Drug Screen,Urine Stat Lab 07/22/23 06:46 Completed Ethyl Alcohol Stat Lab 07/22/23 06:00 Completed Lactic Acid Stat Lab 07/22/23 06:00 Completed Lactic Acid Stat Lab 07/22/23 09:15 Completed Lipase Stat Lab 07/22/23 06:00 Completed Prothrombin Time INR Stat Lab 07/22/23 06:00 Completed Rapid PCR Covid and Flu A/B Stat Lab 07/22/23 06:30 Completed Salicylate Stat Lab 07/22/23 06:00 Completed Trop I [Troponin I] Stat Lab 07/22/23 06:00 Completed Troponin I Q3H Lab 07/22/23 11:00 Completed Urinalysis and Microscopic Stat Lab 07/22/23 06:46 Completed Venous Blood Gas Stat RT 07/22/23 06:12 Completed ECG Data Tracing #1: I reviewed this ECG and interpreted as documented below: Sinus tachycardia with a ventricular rate of [address] changes concerning for ischemia. Normal axis and intervals ECG initial impression date: 07/22/23 ECG initial impression time: 06:10 Medical Decision Narrative: In summary, this patient is a 57-year-old female presenting to the Emergency Department for evaluation of altered mental status. She also had nausea, cramping, and diarrhea last night. She is chronically on a lot of different medications that could cause altered mental status, including benzodiazepines, Ambien, opiates, and other medications as per HPI. She also had taken Phenergan twice as well as possibly NyQuil last night. She also had falls x 2. Differential diagnoses considered include but are not limited to d toxic ingestion, overdose, ehydration, electrolyte derangements, hyponatremia, intracranial hemorrhage, CVA, traumatic injury from fall, other stroke mimic, urinary tract infection. Ruling out the most morbid conditions drove assessment. On exam, the patient has no focal neurologic deficits but is very altered. Based on history, I do feel that this is most likely related to medications, as she is on a lot of chronic medications that could cause altered mental status and also took Phenergan and NyQuil. Workup included very broad lab evaluation including infectious, metabolic, and tox workup as well as scans of the head, neck, chest, abdomen, and pelvis to evaluate for acute pathology/traumatic injury. EKG was obtained and is reassuring. Patient was given a bolus of IV fluids. Patient care signed out to the oncoming provider, Dr. Palomo, pending results and disposition. <Eddie Palomo MD - Last Filed: 07/22/23 15:15> Vital Signs: 07/22/23 06:21 07/22/23 07:00 07/22/23 08:00 Temperature 97.8 F Temperature Source Oral Pulse Rate 100 H 96 H Pulse Rate [Apical] 114 H Respiratory Rate 16 14 12 Blood Pressure 124/78 130/73 Blood Pressure [Right Arm] 117/57 L Blood Pressure Mean Blood Pressure Mean [Right Arm] 77 Blood Pressure Source [Right Arm] Automatic Cuff Blood Pressure Position [Right Arm] Supine 02 Sat by Pulse Oximetry 96 96 94 L Oxygen Delivery Method Room Air 07/22/23 08:31 07/22/23 09:01 07/22/23 09:30 Temperature Temperature Source Pulse Rate 95 H 92 H 93 H Pulse Rate [Apical] Respiratory Rate 13 18 12 Blood Pressure 101/55 L 127/67 120/66 Blood Pressure [Right Arm] Blood Pressure Mean 83 77 76 Blood Pressure Mean [Right Arm] Blood Pressure Source [Right Arm] Blood Pressure Position [Right Arm] 02 Sat by Pulse Oximetry 95 96 96 Oxygen Delivery Method Room Air Room Air 07/22/23 10:00 07/22/23 10:30 07/22/23 11:01 Temperature Temperature Source Pulse Rate 90 94 H 97 H Pulse Rate [Apical] Respiratory Rate 12 12 13 Blood Pressure 113/74 135/69 115/75 Blood Pressure [Right Arm] Blood Pressure Mean 84 Blood Pressure Mean [Right Arm] Blood Pressure Source [Right Arm] Blood Pressure Position [Right Arm] 02 Sat by Pulse Oximetry 94 L 95 96 Oxygen Delivery Method Room Air Room Air Room Air 07/22/23 11:30 07/22/23 12:00 07/22/23 12:30 Temperature Temperature Source Pulse Rate 100 H 98 H 98 H Pulse Rate [Apical] Respiratory Rate 16 18 18 Blood Pressure 127/81 123/75 127/78 Blood Pressure [Right Arm] Blood Pressure Mean 91 92 Blood Pressure Mean [Right Arm] Blood Pressure Source [Right Arm] Blood Pressure Position [Right Arm] 02 Sat by Pulse Oximetry 97 Oxygen Delivery Method Room Air 07/22/23 13:00 07/22/23 13:30 Temperature Temperature Source Pulse Rate 102 H 100 H Pulse Rate [Apical] Respiratory Rate 18 18 Blood Pressure 128/91 H 128/75 Blood Pressure [Right Arm] Blood Pressure Mean 101 92 Blood Pressure Mean [Right Arm] Blood Pressure Source [Right Arm] Blood Pressure Position [Right Arm] 02 Sat by Pulse Oximetry Oxygen Delivery Method Lab Data Lab Results 07/22/23 06:00: WBC 11.4 H, RBC 4.54, Hgb 14.3, Hct 45.3, MCV 99.8 H, MCH 31.5 H , MCHC 31.6 L, RDW 14.3, Plt Count 257, MPV 7.9, Neut % (Auto) 73.6, Lymph % (Auto) 18.0, [place] % (Auto) 7.5, Eos % (Auto) 0.5, Baso % (Auto) 0.5, Neut # (Auto) 8.4 H, Lymph # (Auto) 2.1, [place] # (Auto) 0.9, Eos # (Auto) 0.1, Baso # (Auto) 0.1, PT 10.1, INR 0.93, APTT 24.2, Sodium 143, Potassium 4.5, Chloride 110 H, Carbon Dioxide 27, Anion Gap 10.5, BUN 25 H, Creatinine 1.30 H, Estimated Creat Clear 56, Estimated GFR 42 L, Est GFR ( Amer) 51 L, Glucose 115 H, Lactate 1.9, Calcium 10.0, Total Bilirubin 0.4, AST 34, ALT 29, Alkaline Phosphatase 98, Troponin I < 0.01, NT-Pro-B Natriuret Pep 84.4, Total Protein 6.9, Albumin 4.5, Globulin 2.4, Albumin/Globulin Ratio 1.9 H, Lipase 66, S alicylates 1.2 L, Acetaminophen < 10 L, Plasma/Serum Alcohol < 10 07/22/23 06:12: VBG pH 7.35, VBG pCO2 44.6, VBG pO2 36.1, VBG HCO3 23.8, VBG Total CO2 25.2, VBG O2 Saturation 62.4, VBG Base Excess -1.8, VBG Lactic Acid 2.8 H 07/22/23 06:30: Ammonia < 9 L, SARS-CoV-2 (PCR) Not detected, Influenza A Untype (PCR) Not detected, Influenza Type B (PCR) Not detected 07/22/23 06:46: Urine Color Yellow, Urine Appearance Clear, Urine pH 6.0, Ur Specific [place] 1.015, Urine Protein Negative, Urine Glucose (UA) Negative, Urine Ketones Negative, Urine Blood Negative, Urine Nitrate Negative, Urine Bilirubin Negative, Urine Urobilinogen 0.2, Ur Leukocyte Esterase Negative, Urine WBC Occasional, Ur Squamous Epith Cells Occasional, Urine Bacteria Trace, Urine Opiates Screen Positive H, Urine Methadone Screen Negative, Ur Barbituates Screen Negative, Ur Phencyclidine Scrn Negative, Ur Amphetamines Screen Positive H, U Benzodiazepines Scrn Positive H, Urine Cocaine Screen Negative, U Marijuana (THC) Screen Negative 07/22/23 09:15: Lactate 2.2 H 07/22/23 11:00: Troponin I < 0.01 Orders (Tests/Meds): ED MEDICATIONS Discontinued Medications Generic Name Dose Route Start Last Admin Trade Name Freq PRN Reason Stop Dose Admin Lactated Ringer's 1,000 mls @ 999 mls/hr 07/22/23 06:12 07/22/23 06:51 Lactated Ringer's 1000 Ml Bag IV 07/22/23 07:12 999 mls/hr .Q1H1M ONE Administration Lactated Ringer's 1,000 mls @ 999 mls/hr 07/22/23 14:13 07/22/23 14:37 Lactated Ringer's 1000 Ml Bag IV 07/22/23 15:13 999 mls/hr .Q1H1M ONE Administration Iopamidol 200 ml 07/22/23 07:30 07/22/23 07:31 Iopamidol-370 (76%);100ml Bottle IV 07/22/23 07:31 200 ml ONCE ONE Administration Morphine Sulfate 4 mg 07/22/23 14:50 Morphine 4mg/Ml Syringe IV 07/22/23 14:51 ONCE ONE Sodium Chloride 100 ml 07/22/23 07:30 07/22/23 07:31 0.9 % Sodium Chloride 50 Ml Vial IV 07/22/23 07:31 100 ml ONCE ONE Administration Sodium Chloride 10 ml 07/22/23 07:30 07/22/23 07:31 Sodium Chloride 0.9% 10ml Syr (Rad Only) IV 07/22/23 07:31 10 ml ONCE ONE Administration ORDERS Category Date Time Status CT abdomen pelvis w con Stat Cat Scan 07/22/23 06:[address] angio chest PE protocol Stat Cat Scan 07/22/23 06:[address] angio head Stat Cat Scan 07/22/23 06:[address] angio neck Stat Cat Scan 07/22/23 06:[address] cervical spine wo con Stat Cat Scan 07/22/23 06:[address] head/brain wo con Stat Cat Scan 07/22/23 06:[address] lumbar spine wo con Stat Cat Scan 07/22/23 06:[address] thoracic spine wo con Stat Cat Scan 07/22/23 06:38 Completed Acetaminophen Stat Lab 07/22/23 06:00 Completed Activated Partial Thrombo Time Stat Lab 07/22/23 06:00 Completed Ammonia Stat Lab 07/22/23 06:30 Completed BNP [NT Pro Brain Natriuretic Pep.] Stat Lab 07/22/23 06:00 Completed Complete Blood Count Auto Diff Stat Lab 07/22/23 06:00 Completed Comprehensive Metabolic Panel Stat Lab 07/22/23 06:00 Completed Diarrhea 6-11 Panel, Cdiff PCR Stat Lab 07/22/23 07:10 Ordered Drug Screen,Urine Stat Lab 07/22/23 06:46 Completed Ethyl Alcohol Stat Lab 07/22/23 06:00 Completed Lactic Acid Stat Lab 07/22/23 06:00 Completed Lactic Acid Stat Lab 07/22/23 09:15 Completed Lipase Stat Lab 07/22/23 06:00 Completed Prothrombin Time INR Stat Lab 07/22/23 06:00 Completed Rapid PCR Covid and Flu A/B Stat Lab 07/22/23 06:30 Completed Salicylate Stat Lab 07/22/23 06:00 Completed Trop I [Troponin I] Stat Lab 07/22/23 06:00 Completed Troponin I Q3H Lab 07/22/23 11:00 Completed Urinalysis and Microscopic Stat Lab 07/22/23 06:46 Completed Venous Blood Gas Stat RT 07/22/23 06:12 Completed Medical Decision Narrative: PatientIn summary, this patient is a 57-year-old female presenting to the Emergency Department for evaluation of altered mental status. She also had nausea, cramping, and diarrhea last night. She is chronically on a lot of different medications that could cause altered mental status, including benzodiazepines, Ambien, opiates, and other medications as per HPI. She also had taken Phenergan twice as well as possibly NyQuil last night. She also had falls x 2. Differential diagnoses considered include but are not limited to d toxic ingestion, overdose, ehydration, electrolyte derangements, hyponatremia, intracranial hemorrhage, CVA, traumatic injury from fall, other stroke mimic, urinary tract infection. Ruling out the most morbid conditions drove assessment. On exam, the patient has no focal neurologic deficits but is very altered. Based on history, I do feel that this is most likely related to medications, as she is on a lot of chronic medications that could cause altered mental status and also took Phenergan and NyQuil. Workup included very broad lab evaluation including infectious, metabolic, and tox workup as well as scans of the head, neck, chest, abdomen, and pelvis to evaluate for acute pathology/traumatic injury. EKG was obtained and is reassuring. Patient was given a bolus of IV fluids. Patient care signed out to the oncoming provider, Dr. Palomo, pending results and disposition. Dr. Palomo: I assumed care the patient. Lab work reviewed, notable for WBC 11 K, creatinine 1.3, UDS positive for opiates, amphetamines, benzodiazepines all of which patient is prescribed. CT head without contrast obtained and interpreted by me demonstrating no bleed, no mass, otherwise no acute findings. CTA head/neck do not demonstrate any abnormalities. CT C/T/L-spine without contrast did not demonstrate any acute injury. CTA chest shows only thyroid nodules which on chart review patient has had worked up in the past. CT abdomen/pelvis with contrast shows high-grade stenosis at origin of SMA versus segmental occlusion with collateral filling as well as fluid-filled bowel loops with wall thickening concerning for enteritis/colitis. Given concern for bowel ischemia, repeat lactate obtained. Despite 1 L fluid resuscitation, lactate has increased from 1.9 on arrival to 2.2 currently. Additional 1 L LR bolus ordered. Hospitalist Dr. Lazo was contacted and case was discussed, recommend evaluation by vascular surgery. [facility] transfer center contacted and case discussed with Dr. Carvalho, accepted for transfer to ED for vascular surgery evaluation. Ultimately after being accepted for transfer, patient chose to leave the hospital AGAINST MEDICAL ADVICE. At this time she is alert, oriented and voices understanding of her condition and the risks of leaving the hospital prior to evaluation by a vascular surgeon. States she will follow-up with her primary care provider. Critical Care <Amara Knight, - Last Filed: 07/22/23 06:54> Critical Care Time Critical Care Time: No
[2023-07-22 06:38] LABS: Coronavirus 19, PCR Not Detected (NotDetected); Influenza A, PCR Not Detected (NotDetected); Influenza B, PCR Not Detected (NotDetected)
--- NOTE | 2023-07-22 06:38 | CT_ITS ---
FINAL REPORT CLINICAL HISTORY: fall in bathroom, fall out of bed COMPARISON: None FINDINGS: Axial CT images of the cervical spine were obtained without contrast. Sagittal and coronal reformatted images were also obtained. This study was performed with techniques to keep radiation doses as low as reasonably achievable (ALARA). Individualized dose reduction techniques using automated exposure control or adjustment of mA and/or kV according to the patient's size were employed. There is no evidence of fracture or dislocation. The bony alignment is normal. The disc spaces are preserved. There is no evidence of canal stenosis. No paraspinous soft tissue abnormality is seen. Limited images of the upper thorax are unremarkable. IMPRESSION: No fracture or acute bony abnormality identified. Reviewed, Interpreted and Dictated by Jostin Dupree III, MD Transcribed by Pamela Mooney Authenticated and [facility]
--- NOTE | 2023-07-22 06:38 | CT_ITS ---
FINAL REPORT TECHNIQUE: Axial imaging of the lumbar spine was obtained without contrast. Sagittal and coronal reformatted images were also obtained and reviewed. This study was performed with techniques to keep radiation doses as low as reasonably achievable (ALARA). Individualized dose reduction techniques using automated exposure control or adjustment of mA and/or kV according to the patient's size were employed. CLINICAL HISTORY: fall in bathroom, fall out of bed COMPARISON: None FINDINGS: There is significant motion which obscures detail particularly in the mid and lower lumbar spine. The L4-5 and L5-S1 levels are mostly obscured. No gross fracture is identified. Mild and moderate degenerative changes of the lumbar spine are present. The vertebral alignment is grossly normal. .There is no gross evidence of significant central canal stenosis. IMPRESSION: Significant motion obscures the detail particularly in the mid and lower lumbar spine. The L4-5 and L5-S1 levels are mostly obscured. No gross bony abnormality is identified. Reviewed, Interpreted and Dictated by Jostin Dupree III, MD Transcribed by Pamela Mooney Authenticated and [facility]
--- NOTE | 2023-07-22 06:38 | CT_ITS ---
FINAL REPORT CLINICAL HISTORY: fall in bathroom, fall out of bed COMPARISON: None FINDINGS: Axial CT images of the thoracic spine were obtained without contrast. Sagittal and coronal reformatted images were also obtained. This study was performed with techniques to keep radiation doses as low as reasonably achievable (ALARA). Individualized dose reduction techniques using automated exposure control or adjustment of mA and/or kV according to the patient's size were employed. There is no evidence of fracture. The vertebral alignment is normal. There is no evidence of significant canal stenosis. No paraspinous soft tissue abnormality is identified. IMPRESSION: No fracture or acute bony abnormality. No significant central canal stenosis. Reviewed, Interpreted and Dictated by Jostin Dupree III, MD Transcribed by Pamela Mooney Authenticated and . [facility]
[2023-07-22 06:46] LABS: Acetaminophen < 10 ug/ml (10-30); Troponin I < 0.01 ng/ml (0.00-0.034)
[2023-07-22 06:49] LABS: Microscopic, Urine URINE MICROSCOPIC (MICROSCOPIC)
[2023-07-22 06:51] LABS: Ammonia < 9 umol/L (9-30)
[2023-07-22] MEDS: LACTATED RINGERS 1000ML 1,000 ML 999 ML IV ×2 (06:51→14:37)
[2023-07-22 06:53] LABS: Ethyl Alcohol < 10 mg/dl (0-10)
--- NOTE | 2023-07-22 06:56 | PC.NURSE ---
UA sent to lab. RT notified of green top tube being in lab for VBG.
[2023-07-22 07:01] LABS: Lipase 66 U/L (23-300)
[2023-07-22 07:03] LABS: Lactate Venous 2.8 mmol/L (0.4-2.0); VBG Base Excess -1.8 mmol/L (-2.4-2.3); VBG HCO3 23.8 mmol/L (23-30); VBG Oxygen Saturation 62.4 % (50-70); VBG PCO2 44.6 mmol/L (35-51); VBG PH 7.35 mmol/L (7.31-7.41); VBG PO2 36.1 mmol/L (28-40); VBG Total CO2 25.2 mmol/L (23-27)
[2023-07-22 07:11] LABS: NT Pro Brain Natriuretic Pep. 84.4 pg/mL (0-125)
[2023-07-22 07:14] LABS: Appearance,Urine CLEAR (Clear); Bilirubin,Urine Negative (Negative); Blood, Urine Negative (Negative); Color,Urine YELLOW (Yellow); Glucose,Urine (UA) Negative (Negative); Ketones,Urine Negative (Negative); Leukocyte Esterase,Urine Negative (Negative); Nitrate,Urine Negative (Negative); Protein,Urine Negative (Negative); Specific Gravity, Urine 1.015 (1.005-1.030); Urobilinogen,Urine 0.2 EU/dl (0.2)
[2023-07-22 07:28] LABS: Amphetamine/Metha Screen,Urine Positive ng/ml (<1000); Barbiturates Screen,Urine Negative ng/ml (<200)
[2023-07-22 07:29] LABS: Benzodiazepines Screen,Urine Positive ng/ml (<200)
[2023-07-22 07:30] LABS: Cannabinoid Screen,Urine Negative ng/ml (<50); Cocaine Screen,Urine Negative ng/ml (<300)
[2023-07-22 07:31] LABS: Methadone Screen,Urine Negative ng/ml (<300); Phencyclidine Screen,Urine Negative ng/ml (<25)
[2023-07-22] MEDS: SODIUM CHLORIDE 0.9% 10ML SYR (RAD ONLY) 10 ML IV (07:31)
[2023-07-22] MEDS: IOPAMIDOL-370 (76%);100ML BOTTLE 200 ML IV (07:31)
[2023-07-22] MEDS: 0.9 % SODIUM CHLORIDE 50 ML VIAL 100 ML IV (07:31)
[2023-07-22 07:32] LABS: Opiate Screen,Urine Positive ng/ml (<300)
--- NOTE | 2023-07-22 07:36 | PC.NURSE ---
Pt in RAD at this time
--- NOTE | 2023-07-22 07:38 | PC.NURSE ---
PT returned to room from RAD
[2023-07-22 07:42] LABS: Bacteria,Urine Trace /lpf; Squamous Epithelial Cell,Urine Occasional #/hpf (0-5); WBC,Urine Occasional #/hpf (0-3)
[2023-07-22 07:53] LABS: Activated Partial Thrombo Time 24.2 seconds (22.8-30.6); INR 0.93 (0.9-1.1); Prothrombin Time 10.1 seconds (10.1-12.5)
--- NOTE | 2023-07-22 08:37 | PC.NURSE ---
POOJA PALACIOS at
[2023-07-22 09:37] LABS: Lactic Acid 2.2 mmol/L (0.7-2.1)
--- NOTE | 2023-07-22 09:47 | PC.NURSE ---
ED SPEAKING WITH HOSPITALIST
--- NOTE | 2023-07-22 09:54 | PC.NURSE ---
placed a call to [facility] for transfer, they will call back.
--- NOTE | 2023-07-22 10:19 | PC.NURSE ---
ED MD AT BEDSIDE TO UPDATE PT AND FAMILY
--- NOTE | 2023-07-22 10:38 | PC.NURSE ---
Dr Palomo speaking to [facility]
--- NOTE | 2023-07-22 10:42 | PC.NURSE ---
ASSISTED PT TO BR AND BACK TO BED. WARM BLANKETS PROVIDED. AT BEDSIDE. BOTH SIDE RAILS UP, BED IN LOWEST POSITION. CALL LIGHT WITHIN REACH
[2023-07-22 11:03] LABS: Reflex Lactic Add Lactic Reflex
--- NOTE | 2023-07-22 11:47 | PC.NURSE ---
called [facility] for status of call from vascular. vascular is in OR they will call back as soon as possible.
[2023-07-22 11:52] LABS: Troponin I < 0.01 ng/ml (0.00-0.034)
--- NOTE | 2023-07-22 12:30 | PC.NURSE ---
ED MD AT BEDSIDE TO UPDATE PT AND FAMILY
--- NOTE | 2023-07-22 14:57 | PC.NURSE ---
called for follow uo,so Dr Gongora said to send pt to er
== END 2023-07-22 14:22 | disposition left against medical advice (07) ==
PROVIDERS: Emergency Medicine; Emergency Provider Student in an Organized Health Care Education/Training Program
DX: K55.1 Chronic vascular disorders of intestine (principal); R00.0 Tachycardia, unspecified; R10.819 Abdominal tenderness, unspecified site; R11.0 Nausea; R19.7 Diarrhea, unspecified; R41.82 Altered mental status, unspecified; J44.9 Chronic obstructive pulmonary disease, unspecified; K21.9 Gastro-esophageal reflux disease without esophagitis; I10 Essential (primary) hypertension; Z86.73 Personal history of transient ischemic attack (TIA), and cerebral infarction without residual deficits; Z87.891 Personal history of nicotine dependence
CPT/HCPCS: 36415; 70450; 70496; 70498; 71275; 72125; 72128; 72131; 74177; 80053; 80307; 80329; 81001; 82140; 82803; 83605; 83690; 83880; 84484; 85025; 85610; 85730; 87636; 93005; 96361; 96374; 99285; Q9967

== ENCOUNTER 2023-07-24 10:11 | Day surgery (SDC) | payer BC, SELFPAY ==
[2023-07-24] VITALS (10 sets, daily range): BP systolic 119–145; BP diastolic 63–86; PULSE 69–81; RESP 16–20; TEMP 36.4; O2SAT 94–98; BMI 25.9
--- NOTE | 2023-07-24 07:08 | IR_ITS ---
APPROVED REPORT PROCEDURES Selective engagement of the celiac artery Selective celiac artery angiogram Selective engagement of the superior mesenteric artery Selective superior mesenteric artery angiogram INDICATION Suspected mesenteric ischemia, Abnormal CAT scan, Atherosclerosis of the mesenteric artery Informed consent was obtained prior to the procedure. COMPLICATIONS NONE Estimated Blood Loss: LESS THAN 10 ML TECHNIQUE 1% lidocaine used to anesthetize the right anterior aspect of the right wrist. The right radial artery was accessed via the central technique and an arterial cocktail using 5000U heparin, 2.5 mg verapamil, 1mg lidocaine and 800mcg nitroglycerin into the right radial sheath intra-arterially. A Poppa catheter was advanced under fluoroscopic guidance into the abdominal aorta and selective angiography was performed of the celiac artery as well as the superior mesenteric artery. At the end of the procedure the apparatus was removed the sheath was removed and hemostasis achieved using TR banding patient was transferred to the postop holding in stable condition ANGIOGRAPHIC RESULTS Celiac artery is a large-caliber widely patent vessel giving rise to the hepatic artery and splenic artery with both arteries being widely patent Superior mesenteric artery is a large-caliber vessel and is ostially occludel. Large caliber collaterals originate from the celiac artery and quickly opacify the entire superior mesenteric artery IMPRESSION Chronically occluded ostial superior mesenteric artery which is collateralized by a heavy and rich collateral network from the celiac artery PLAN 1. There is basically normal abdominal mesenteric flow from this large caliber celiac artery providing large caliber rich collaterals to the mesenteric artery. Mesenteric artery ischemia is not present and I recommend medical management given the normal mesenteric flow 2. Evaluation of nonischemic symptoms 3. Evaluation for cardiovascular disease based on the presence of mesenteric ischemia 4. LDL less than 55 to be achieved with high intensity statin Electronically signed by : Tej Pitts MD 07/24/2023 16:26:47
[2023-07-24 10:31] LABS: Basophils # 0.1 K/mm3 (0-0.2); Basophils % 0.6 % (0.1-2.0); Eosinophils # 0.2 K/mm3 (0.0-0.4); Eosinophils % 2.5 % (0.1-12.0); Hematocrit 37.7 % (37.0-47.0); Hemoglobin 11.8 g/dL (12.2-16.2); Lymphocytes # 2.1 K/mm3 (0.7-4.5); Lymphocytes % 21.4 % (10-50); Mean Corpuscular HGB Conc 31.3 g/dL (31.8-35.4); Mean Corpuscular Hemoglobin 31.9 pg (27.0-31.2); Mean Corpuscular Volume 101.6 fl (81-99); Monocytes # 0.5 K/mm3 (0.1-1.0); Monocytes % 5.3 % (1.7-9.3); Neutrophils # 6.7 K/mm3 (1.8-7.8); Neutrophils % 70.1 % (37.0-80.0); Platelet Count 258 K/mm3 (142-424); Red Blood Count 3.71 M/mm3 (4.20-5.40); Red Cell Distribution Width 14.3 % (11.5-17.5); White Blood Count 9.6 K/mm3 (4.8-10.8)
[2023-07-24 10:45] LABS: Chloride 110 mmol/L (98-107); Sodium 137 mmol/L (136-145)
[2023-07-24 10:48] LABS: Blood Urea Nitrogen 16 mg/dl (7-17); Carbon Dioxide 27 mmol/L (22.0-30.0); Creatinine Clearance Estimated 79 mL/min (50-200); Estimated Glomerular Filt Rate 64 ml/min (>60); GFR (African American) 78 ML/MIN (>60)
[2023-07-24 10:49] LABS: Calcium 8.9 mg/dl (8.4-10.2); Glucose 123 mg/dl (74-100)
[2023-07-24] MEDS: VERAPAMIL 2.5MG/ML 2ML VIAL 2.5 MG IV (14:39)
[2023-07-24] MEDS: NITROGLYCERIN 800MCG/8ML SYR (CATH LAB) 800 MCG IA (14:39)
[2023-07-24] MEDS: diphenhydrAMINE 50MG/ML VIAL 50 MG IV (14:39)
[2023-07-24] MEDS: LIDOCAINE 1% 10ML MDV 20 ML IJ (14:40)
[2023-07-24] MEDS: FENTANYL 100MCG/2ML VIAL 50 MCG IV (14:46)
[2023-07-24] MEDS: MIDAZOLAM HCL 1MG/1ML 5ML VIAL 1 MG IV (14:46)
[2023-07-24] MEDS: 0.9 % SODIUM CHLORIDE 500 ML 25 ML IV (14:59)
[2023-07-24] MEDS: IOPAMIDOL-370 (76%);100ML BOTTLE 90 ML IV (15:37)
== END 2023-07-24 16:42 | disposition home or self-care (01) ==
PROVIDERS: PCP Internal Medicine; Visit Provider Internal Medicine
DX: K55.1 Chronic vascular disorders of intestine (principal); R19.7 Diarrhea, unspecified; Z86.73 Personal history of transient ischemic attack (TIA), and cerebral infarction without residual deficits; Z87.891 Personal history of nicotine dependence; I10 Essential (primary) hypertension
CPT/HCPCS: 36245; 36415; 75726; 75774; 80048; 85025; 99152; C1725; C1769; J0583; Q9967

== ENCOUNTER 2023-08-02 11:00 | Outpatient (CLI) | payer BC, SELFPAY ==
[2023-08-02 11:10] LABS: Adenovirus F 40/41, stool Not Detected (NotDetected); Astrovirus Not Detected (NotDetected); Campylobacter Not Detected (NotDetected); Clostridium Difficile A/B, PCR Not Detected (NotDetected); Cryptosporidium Not Detected (NotDetected); Cyclospora Cayetanesis Not Detected (NotDetected); Entamoeba histolytica Not Detected (NotDetected); Enteroaggregative E coli Not Detected (NotDetected); Enteropathogenic E coli Not Detected (NotDetected); Enterotoxigenic E coli Not Detected (NotDetected); Giardia lamblia Not Detected (NotDetected); Norovirus Not Detected (NotDetected); Plesimonas Shigalloides, PCR Not Detected (NotDetected); Rotavirus A Not Detected (NotDetected); Salmonella, PCR Not Detected (NotDetected); Shiga-like toxin E coli Not Detected (NotDetected); Shigella Enterovasive E coli Not Detected (NotDetected); Vibrio Cholerae Not Detected (NotDetected); Vibrio, PCR Not Detected (NotDetected); Yersinia Entercolitica, PCR Not Detected (NotDetected)
[2023-08-06 09:06] LABS: Sapovirus Not Detected (NotDetected)
== END 2023-08-02 23:59 | disposition home or self-care (01) ==
LOC: LAB.DROPOF 11:01
PROVIDERS: PCP Nurse Practitioner Family; Visit Provider Nurse Practitioner Family
DX: R19.7 Diarrhea, unspecified (principal); Z79.899 Other long term (current) drug therapy
CPT/HCPCS: 87507

== ENCOUNTER 2023-09-06 16:15 | Emergency (ER) | payer BC, SELFPAY ==
[2023-09-06] VITALS (35 sets, daily range): BP systolic 123–206; BP diastolic 68–112; PULSE 66–95; RESP 9–22; TEMP 36.6–37.2; O2SAT 95–99; BMI 25.8
--- NOTE | 2023-09-06 16:42 | XR_ITS ---
PROCEDURE INFORMATION: Exam: XR Left Tibia and Fibula Exam date and time: 09/06/2023 4:39 PM Age: 58 years old Clinical indication: Injury or trauma; Fall; Swelling (edema); Ankle; Left; Additional info: Fall, pain, swelling TECHNIQUE: Imaging protocol: Radiologic exam of the left tibia and fibula. Views: 2 views. COMPARISON: CR Knee L 09/06/2023 4:38 PM FINDINGS: Bones/joints: Significantly comminuted fracture of the distal fibula just above the lateral malleolus with moderate apex anterior angulation. Diastatic intra-articular vertical fracture of the distal tibia best visualized on the lateral view with diastasis of fragments by approximately 13 mm. Proximal tibia and fibula appear intact. Mild plantar calcaneal spurring incidentally noted. Soft tissues: Unremarkable IMPRESSION: Acute fractures of the distal tibia and fibula as described.
--- NOTE | 2023-09-06 16:42 | XR_ITS ---
PROCEDURE INFORMATION: Exam: XR Left Ankle Exam date and time: 09/06/2023 4:41 PM Age: 58 years old Clinical indication: Injury or trauma; Fall; Swelling (edema); Ankle; Left; Additional info: Fall, pain, swelling TECHNIQUE: Imaging protocol: Radiologic exam of the left ankle. Views: 3 or more views. COMPARISON: CR Lower leg L 09/06/2023 4:39 PM FINDINGS: Bones/joints: Significantly comminuted fracture of the distal fibula just above the lateral malleolus with moderate apex anterior angulation. Diastatic intra-articular vertical fracture of the distal tibia best visualized on the lateral view with diastasis of fragments by approximately 13 mm. Proximal tibia and fibula appear intact. Mild plantar calcaneal spurring incidentally noted. Soft tissues: Moderate soft tissue swelling about the ankle IMPRESSION: Acute fractures of the distal tibia and fibula as described.
--- NOTE | 2023-09-06 16:42 | XR_ITS ---
PROCEDURE INFORMATION: Exam: XR Left Foot Exam date and time: 09/06/2023 4:42 PM Age: 58 years old Clinical indication: Injury or trauma; Fall; Swelling (edema); Ankle; Left; Additional info: Fall, pain, swelling TECHNIQUE: Imaging protocol: Radiologic exam of the left foot. Views: 3 or more views. COMPARISON: CR Ankle L 09/06/2023 4:41 PM FINDINGS: Bones/joints: Fractures of the distal tibia and fibula noted, better visualized and described on dedicated left ankle study from the same day. Mild plantar calcaneal spurring. No fracture identified within the intrinsic bones of the foot. No significant arthritic change Soft tissues: Normal. IMPRESSION: Fractures of the distal tibia and fibula as described on ankle film from the same day.
--- NOTE | 2023-09-06 16:42 | XR_ITS ---
PROCEDURE INFORMATION: Exam: XR Left Knee Exam date and time: 09/06/2023 4:38 PM Age: 58 years old Clinical indication: Injury or trauma; Fall; Swelling (edema); Ankle; Left; Additional info: Fall, pain, swelling TECHNIQUE: Imaging protocol: Radiologic exam of the left knee. Views: 3 views. COMPARISON: No relevant prior studies available. FINDINGS: Bones/joints: Osseous alignment is normal. No acute fracture. No significant arthritic change or joint fluid. Soft tissues: Normal. IMPRESSION: Negative left knee
--- NOTE | 2023-09-06 16:50 | ED_ITS ---
Discharge Plan Disposition Patient Disposition: Xfer Short-Term Hosp Condition: Good Prescriptions Prescriptions: No Action nitroglycerin 0.4 mg tablet, sublingual 0.4 mg sublingual Q5-15M PRN (Reason: abdominal cramping) Qty: 30 0RF Rx Instructions: do not exceed 3 doses per episode metronidazole 500 mg tablet 500 mg PO Q8H 7 Days Qty: 21 0RF dicyclomine 20 mg tablet 20 mg PO TID Qty: 90 2RF acyclovir 200 mg capsule 200 mg PO DAILY Qty: 30 1RF atorvastatin 80 mg tablet 80 mg PO DAILY 90 Days Qty: 90 3RF lorazepam 0.5 mg tablet 0.5 mg PO DAILY PRN (Reason: panic attacks) 30 Days Qty: 6 1RF metoprolol succinate 25 mg tablet extended release 24 hr 25 mg PO DAILY 90 Days Qty: 90 3RF buspirone 15 mg tablet 15 mg PO BID 30 Days Qty: 60 2RF meloxicam 15 mg tablet 15 mg PO DAILY 30 Days Qty: 30 2RF ondansetron 4 mg tablet,disintegrating 4 mg PO Q8H PRN (Reason: nausea and vomiting) Qty: 30 0RF gabapentin 800 mg tablet 800 mg PO TID 30 Days Qty: 90 2RF hydrocodone-acetaminophen 10-325 mg tablet 1 tab PO QID 30 Days Qty: 120 0RF zolpidem [Ambien] 10 mg tablet 10 mg PO HS 30 Days Qty: 30 2RF pantoprazole [Protonix] 20 mg tablet,delayed release (DR/EC) 20 mg PO DAILY Qty: 30 2RF amlodipine 10 mg tablet See Rx Instructions .ROUTE .COMPLEX Qty: 60 2RF Dose Instruction: TAKE TWO TABLETS (20 MG) BY MOUTH ONCE A DAY Rx Instructions: TAKE TWO TABLETS (20 MG) BY MOUTH ONCE A DAY escitalopram oxalate 10 mg tablet See Rx Instructions .ROUTE .COMPLEX Qty: 60 2RF Dose Instruction: TAKE TWO TABLETS BY MOUTH ONCE A DAY Rx Instructions: TAKE TWO TABLETS BY MOUTH ONCE A DAY furosemide 20 mg tablet See Rx Instructions .ROUTE .COMPLEX Qty: 15 2RF Dose Instruction: TAKE ONE TABLET BY MOUTH EVERY OTHER DAY Rx Instructions: TAKE ONE TABLET BY MOUTH EVERY OTHER DAY lisinopril 40 mg tablet See Rx Instructions .ROUTE .COMPLEX Qty: 30 2RF Dose Instruction: TAKE ONE TABLET BY MOUTH ONCE A DAY FOR HYPERTENSION Rx Instructions: TAKE ONE TABLET BY MOUTH ONCE A DAY FOR HYPERTENSION dextroamphetamine-amphetamine 30 mg tablet 30 mg PO DAILY 30 Days Qty: 30 0RF metoclopramide HCl 10 mg tablet See Rx Instructions .ROUTE .COMPLEX Qty: 120 0RF Dose Instruction: TAKE ONE TABLET BY MOUTH FOUR TIMES A DAY Rx Instructions: TAKE ONE TABLET BY MOUTH FOUR TIMES A DAY pramipexole 0.5 mg tablet See Rx Instructions .ROUTE .COMPLEX Qty: 30 0RF Dose Instruction: TAKE ONE TABLET BY MOUTH AT BEDTIME Rx Instructions: TAKE ONE TABLET BY MOUTH AT BEDTIME clopidogrel 75 mg tablet See Rx Instructions .ROUTE .COMPLEX Rx Instructions: TAKE ONE TABLET BY MOUTH ONCE A DAY Referrals Follow up/Referrals: Manolo Martínez DO [Primary Care Provider] - See instructions Activity Restrictions/Add. Instructions Additional Instructions/Restrictions: Please proceed directly to [facility] for further evaluation and management. You will be seen in the emergency department there. Do not eat or drink anything on the way. [address] [place] [address] Clinical Impressions Clinical Impression: Closed fracture dislocation of left ankle Discharge ED Provider: Amara Knight General Adult HPI General Chief complaint: Extremity Injury, Lower Stated complaint: AO 09/06/23 1500 Injury left foot Time Seen by Provider: 09/06/23 16:30 Mode of Arrival: Family Vehicle Source of Information: Patient and Medical Record Limitations: No Limitations Description of Symptoms (Recalled from ER Triage Doc. by RN): Pt c/o LLE pain and swelling after a fall approx 30 min ago. States she had her R leg up on the bathroom sink when she lost her balance and fell to the left and back. States she landed on my butt . Denies hitting her head or any LOC. Pt reports she felt a pop and crunch-like to her left ankle. Reports to be on blood thinners, per chart it is plavix. History of Present Illness HPI narrative: This patient is a 58-year-old female with a history of prior CVA, restless leg syndrome, hypertension, and GERD presenting to the emergency department for evaluation with concern for left leg injury. Patient reports that she was standing with her right foot up on the counter trying to put a Band-Aid on her right leg because she had some minor bleeding. Her left leg gave out from underneath her, she felt a crunch, and she felt immediate pain in her left ankle. This caused her to fall on her butt. She has not been able to put weight on her left leg since. No other injuries noted, such as head injury, loss of consciousness, or other concerns. She was well prior to this. She does take Plavix. Related Data Home Medications Medication Instructions Recorded Confirmed clopidogrel 75 mg tablet See Rx Instructions .Route 09/10/22 09/04/23 .COMPLEX Heart disease Previous Rx's Medication Instructions Recorded acyclovir 200 mg capsule 200 mg PO DAILY CAD #30 caps 12/04/22 atorvastatin 80 mg tablet 80 mg PO DAILY 90 days #90 tabs 05/16/23 lorazepam 0.5 mg tablet 0.5 mg PO DAILY PRN panic attacks 05/16/23 30 days #6 tabs metoprolol succinate 25 mg 25 mg PO DAILY 90 days #90 tabs 05/16/23 tablet,extended release 24 hr buspirone 15 mg tablet 15 mg PO BID 30 days #60 tabs 07/09/23 meloxicam 15 mg tablet 15 mg PO DAILY 30 days #30 tabs 07/09/23 nitroglycerin 0.4 mg sublingual 0.4 mg sublingual Q5-15M PRN 07/23/23 tablet abdominal cramping #30 tabs ondansetron 4 mg disintegrating 4 mg PO Q8H PRN nausea and 07/30/23 tablet vomiting #30 tabs amlodipine 10 mg tablet See Rx Instructions .Route 08/07/23 .COMPLEX #60 tabs escitalopram oxalate 10 mg tablet See Rx Instructions .Route 08/07/23 .COMPLEX #60 tabs furosemide 20 mg tablet See Rx Instructions .Route 08/07/23 .COMPLEX #15 tabs lisinopril 40 mg tablet See Rx Instructions .Route 08/07/23 .COMPLEX #30 tabs dicyclomine 20 mg tablet 20 mg PO TID #90 tabs 08/15/23 metronidazole 500 mg tablet 500 mg PO Q8H 7 days #21 tabs 08/15/23 dextroamphetamine-amphetamine 30 30 mg PO DAILY 30 days #30 tabs 08/20/23 mg tablet gabapentin 800 mg tablet 800 mg PO TID 30 days #90 tabs 09/04/23 hydrocodone 10 mg-acetaminophen 1 tab PO QID 30 days #120 tabs 09/04/23 325 mg tablet metoclopramide HCl 10 mg tablet See Rx Instructions .Route 09/04/23 .COMPLEX #120 tabs pantoprazole 20 mg tablet,delayed 20 mg PO DAILY #30 tabs 09/04/23 release (Protonix) pramipexole 0.5 mg tablet See Rx Instructions .Route 09/04/23 .COMPLEX #30 tabs zolpidem 10 mg tablet (Ambien) 10 mg PO HS 30 days #30 tabs 09/04/23 Allergies Allergy/AdvReac Type Severity Reaction Status Date / Time enoxaparin [From Lovenox] Allergy Severe Anaphylaxis Verified 09/04/23 09:28 Antihistamines - Alkylamine Allergy Unknown Verified 09/04/23 09:28 [ANTIHISTAMINES - ALKYLAMINE] ketorolac [From Toradol] Allergy Unknown Verified 09/04/23 09:28 [facility] Disclaimer: The information contained in this section may have been updated after the patient was seen, as this information can be updated by other users. Medical History Daytime somnolence Snoring Abnormal electrocardiography Dyspnea Cerebrovascular accident Hypertension jail use of drug C. difficile diarrhea Diarrhea Lumbar facet arthropathy Spondylisthesis GERD (gastroesophageal reflux disease) COPD (chronic obstructive pulmonary disease) Lumbar disc disease with radiculopathy Chronic pain Tobacco use Lumbar foraminal stenosis Lumbar degenerative disc disease Anxiety Surgical History History of appendectomy H/O: hysterectomy Family History Other Cancer Social History Smoking Status: Former smoker tobacco type: e-cigarettes smoking status start date: pt does Vape smoking status stop date: 2020` alcohol intake: never substance use type: denies use current occupational status: disabled Travel in the last 8 weeks: None household members: family housing: house caffeine: Yes ROS Obtained: Yes All systems reviewed & no additional complaints except as documented Physical Exam General General appearance: alert and in no apparent distress Head Head exam: atraumatic and normocephalic Eye Eye exam: Present normal appearance, PERRL and EOMI ENT ENT exam: Present normal exam, normal oropharynx, mucous membranes moist and normal external ear exam Neck Neck exam: Present normal inspection, full ROM and trachea midline; Absent tenderness Chest Chest inspection: Present normal inspection and symmetric chest wall rise; Absent tenderness Respiratory Respiratory exam: Present normal lung sounds bilaterally; Absent respiratory distress, wheezes, stridor or accessory muscle use Cardiovascular Cardiovascular exam: Present regular rate and normal rhythm Abdominal Exam Abdominal exam: Present soft; Absent distention, tenderness or guarding Extremities Exam Extremities exam: Present full ROM, tenderness, normal capillary refill, edema, joint swelling and other (Significant left ankle/foot swelling and tenderness to palpation. Neurovascularly intact distally. All compartments soft. No open wounds.) Back Exam Back exam: Present normal inspection and full ROM; Absent tenderness Neurological Exam Neurological exam: Present alert, oriented X3 and CN II-XII intact; Absent motor sensory deficit Psychiatric Psychiatric exam: Present normal affect and normal mood Skin Skin exam: Present warm and dry Medical Decision Making Medical Records Medical records reviewed: Yes I reviewed the patient's medical records. Bhavik Inquiry Pt receiving controlled substance: No Vital Signs: 09/06/23 16:17 09/06/23 17:00 09/06/23 17:30 Pulse Rate 69 69 Pulse Rate [Right] 66 Respiratory Rate 19 Blood Pressure 128/90 138/83 Blood Pressure [Right Arm] 123/68 Blood Pressure Mean 94 94 Blood Pressure Mean [Right Arm] 86 Blood Pressure Source [Right Arm] Automatic Cuff 02 Sat by Pulse Oximetry 96 96 96 Oxygen Delivery Method Room Air 09/06/23 18:01 09/06/23 18:30 09/06/23 19:00 Pulse Rate 74 78 Pulse Rate [Right] Respiratory Rate 18 9 L 14 Blood Pressure 166/99 H 152/84 H 153/84 H Blood Pressure [Right Arm] Blood Pressure Mean 121 105 101 Blood Pressure Mean [Right Arm] Blood Pressure Source [Right Arm] 02 Sat by Pulse Oximetry 97 97 Oxygen Delivery Method 09/06/23 19:30 09/06/23 20:00 09/06/23 20:30 Pulse Rate 78 78 71 Pulse Rate [Right] Respiratory Rate 14 14 14 Blood Pressure 173/91 H 146/91 H 151/86 H Blood Pressure [Right Arm] Blood Pressure Mean 118 109 104 Blood Pressure Mean [Right Arm] Blood Pressure Source [Right Arm] 02 Sat by Pulse Oximetry 97 97 97 Oxygen Delivery Method 09/06/23 21:00 Pulse Rate 72 Pulse Rate [Right] Respiratory Rate 16 Blood Pressure 151/88 H Blood Pressure [Right Arm] Blood Pressure Mean 108 Blood Pressure Mean [Right Arm] Blood Pressure Source [Right Arm] 02 Sat by Pulse Oximetry 95 Oxygen Delivery Method Lab Data Lab results reviewed: Yes I reviewed the patient's lab results. Orders (Tests/Meds): ED MEDICATIONS Discontinued Medications Generic Name Dose Route Start Last Admin Trade Name Vaughn PRN Reason Stop Dose Admin Hydrocodone Bitart/Acetaminophen 1 tab 09/06/23 16:42 09/06/23 17:01 Hydrocodone/Apap 5/325 Mg Tablet PO 09/06/23 16:43 1 tab ONCE ONE Administration Hydromorphone HCl 1 mg 09/06/23 20:00 09/06/23 20:54 Hydromorphone 2mg/Ml Syringe IV 09/06/23 20:01 1 mg ONCE ONE Administration Ibuprofen 800 mg 09/06/23 16:43 09/06/23 16:56 Ibuprofen 400 Mg Tablet PO 09/06/23 16:44 800 mg ONCE ONE Administration Morphine Sulfate 4 mg 09/06/23 19:06 09/06/23 19:10 Morphine 4mg/Ml Syringe IV 09/06/23 19:07 4 mg ONCE ONE Administration Ondansetron HCl 4 mg 09/06/23 17:03 09/06/23 17:04 Ondansetron 4mg Odt SL 09/06/23 17:04 4 mg ONCE ONE Administration ORDERS Category Date Time Status XR ankle LT min 3V Stat Exams 09/06/23 16:42 Completed XR foot LT min 3V Stat Exams 09/06/23 16:42 Completed XR knee LT 3V Stat Exams 09/06/23 16:42 Completed XR tibia fibula LT 2V Stat Exams 09/06/23 16:42 Completed Medical Decision Narrative: In summary, this patient is a 58-year-old female presenting to the Emergency Department for evaluation of traumatic left leg pain and swelling. Differential diagnoses considered include but are not limited to fracture, contusion, strain/sprain, neurovascular injury. Ruling out the most morbid conditions drove assessment. It should be noted patient's history includes prior CVA, hypertension, hyperlipidemia which may or may not be at goal therapy. This complicates all aspects of care by increasing patient's risk for morbidity. I reviewed patient's past medical records and noted previous evaluation here back in July for altered mental status. On exam, the patient is alert and oriented, GCS 15, and she is very well- appearing. She has isolated swelling and tenderness to her left ankle, but no other traumatic injuries noted on physical exam. She is neurovascularly intact. Workup included x-rays of the left knee, tib-fib, ankle, and foot. She was given oral Jacob and ibuprofen for symptomatic improvement. I independently interpreted x-ray prior to the radiologist read and noted distal tib-fib fracture. Please see their read for final interpretation. After informed consent was obtained, patient wanted to undergo procedural sedation for splinting, as she did not think she could tolerate splinting withou t procedural sedation. I had an interactive discussion with our orthopedist, Dr. Velazquez, who advised he felt the patient should be monitored for compartment syndrome. I called and had interacted discussions with both [facility] Dr. Woodson and [facility] Dr. Gibson who advised they felt the patient can follow-up outpatient. I had an interactive discussion with [facility] who advised that they felt she would need to be monitored in agreement with Dr. Velazquez. Dr. Flores accepted the patient for transfer. Patient was splinted under procedural sedation with ketamine. She tolerated this very well. Please see procedure notes for further documentation. After splinting, patient returned to preprocedure baseline and remained neurovascularly intact. Patient elects to go [facility]. She understands why she is being transferred and risk should she not proceed directly there. She was given a packet and disk and left POV in stable condition. Procedures Risk/Benefits of Procedure(s) Were Explained: Yes Orthopedic Splinting/Casting Injury #1: Side: left Lower Extremity Injury Location: ankle Lower Extremity Immobilizer: posterior splint Other Orthopedic Equipment: other Post Cast/Splinting Neuro Status: intact and no change Post Cast/Splinting Vasc Status: intact and no change Procedural Sedation Presedation Evaluation: Patient alert and oriented and conversational and denies any history of prior difficult intubations or sedations. A heart and lung assessment was performed on this patient at: 21:39 Mallampati Score:: Class II Indication: fracture/dislocation reduction ASA Class: I Preparation: air sampling and monitoring applied, pulse oximeter, capnometry used, supplemental O2 applied, reversal agents at bedside, suction/airway equipment at bedside and IV secured Ketamine: IV Ketamine dose (mg): 90 Patient Tolerated Procedure: well and no complications Complications: none Critical Care Critical Care Time Critical Care Time: No
[2023-09-06] MEDS: IBUPROFEN 400 MG TABLET 800 MG PO (16:56)
[2023-09-06] MEDS: HYDROCODONE/APAP 5/325 MG TABLET 1 TAB PO (17:01)
[2023-09-06] MEDS: ONDANSETRON 4MG ODT 4 MG SL (17:04)
--- NOTE | 2023-09-06 17:36 | PC.NURSE ---
DR DURAN AT BEDSIDE TO UPDATE PT AND FAMILY
--- NOTE | 2023-09-06 17:37 | PC.NURSE ---
Dr. Knight at bedside
--- NOTE | 2023-09-06 17:41 | PC.NURSE ---
DR DURAN SPEAKING WITH DR LOPEZ
--- NOTE | 2023-09-06 17:44 | PC.NURSE ---
PT REQUEST POSSIBLE TRANSFER TO [facility] FOR ORTHO SURGERY PER DR RUSSELL [address] CONTACTED AT THIS TIME FOR POSSIBLE ORTHO TRANSFER, DR RUSSELL NOT BICYCLE REPAIR TECHNICIAN. TRANSPORT CENTER WILL CONTACT ORTHO ON-CALL AND CALL BACK
--- NOTE | 2023-09-06 17:49 | PC.NURSE ---
FAMILY AND PT UPDATED AT THIS TIME. INFORMED THAT DR RUSSELL IS NOT ON-CALL FOR ORTHO. PT AGREES TO PROCEED WITH POSSIBLE TRANSFER TO [facility]
--- NOTE | 2023-09-06 17:57 | PC.NURSE ---
Pt & family moved to room 4 d/t anticipated concisions sedation for splint placement & reduction on LLE tib/fib fx. Pt placed on hemodynamic & cardiac monitoring and co2 monitoring
--- NOTE | 2023-09-06 18:56 | PC.NURSE ---
Called [facility] about transferring this pt with a Tib/Fib fx at the base of her ankle. [facility] has us on hold trying to connect us with ortho doc
[2023-09-06] MEDS: MORPHINE 4MG/ML SYRINGE 4 MG IV (19:10)
--- NOTE | 2023-09-06 19:32 | PC.NURSE ---
Contacted [facility] in regards to a transfer they will call back
--- NOTE | 2023-09-06 19:48 | PC.NURSE ---
Rodrigo returned phone call.
[2023-09-06] MEDS: HYDROMORPHONE 2MG/ML SYRINGE 1 MG IV (20:54)
[2023-09-06] MEDS: KETAMINE 50MG/1ML SYRINGE 72 MG IV (22:02)
--- NOTE | 2023-09-06 22:04 | PC.NURSE ---
md at bedside, time out performed. patient and family member verbalized understanding. Plan includes to initially sedate patient with ketamine 1mg/kg and continue 0.5mg/kg maintenance as needed. See Mar for orders.
[2023-09-06] MEDS: KETAMINE 50MG/1ML SYRINGE 20 MG IV (22:17)
[2023-09-06] MEDS: OXYCODONE 5MG IMMEDIATE RELEASE TABLET 5 MG PO (22:55)
--- NOTE | 2023-09-06 23:07 | PC.NURSE ---
patient escorted to car via RN
[2023-09-06] MEDS: ONDANSETRON 4MG/2ML VIAL 4 MG IV (23:26)
[2023-09-07 02:40] VITALS: BP 175/80; PULSE 81; RESP 14; O2SAT 97
== END 2023-09-06 23:17 | disposition short-term general hospital (02) ==
PROVIDERS: Emergency Provider Emergency Medicine; PCP Internal Medicine
DX: S82.62XA Displaced fracture of lateral malleolus of left fibula, initial encounter for closed fracture (principal); S82.392A Other fracture of lower end of left tibia, initial encounter for closed fracture; M25.572 Pain in left ankle and joints of left foot; J44.9 Chronic obstructive pulmonary disease, unspecified; K21.9 Gastro-esophageal reflux disease without esophagitis; I10 Essential (primary) hypertension; Z87.891 Personal history of nicotine dependence; W18.39XA Other fall on same level, initial encounter
CPT/HCPCS: 73562; 73590; 73610; 73630; 96374; 96375; 96376; 99152; 99153; 99285; J2405